=== PATIENT | male | born 1950 | race Caucasian/White ===

== ENCOUNTER → 2022-02-23 | Outpatient (CLI) | payer MEDICARE, OTHER, SELFPAY ==
--- NOTE | 2022-02-23 08:46 | US_ITS ---
PROCEDURES: ULTRASOUND AORTA REASON FOR EXAM: Male, 72 years old. Screening AAA TECHNIQUE: Ultrasound evaluation of the aorta was performed with real-time and static berrios-scale imaging. COMPARISON: None. FINDINGS: There is tortuous elongation of the abdominal aorta. Aorta measures: Proximal 1.9 cm. Middle 1.9 cm. Distal 1.9 cm. Aorta measure transversely: Proximal 2.5 cm. Middle 2.0 cm. Distal 1.8 cm. Right iliac artery measures: 1.3 cm. Right iliac artery measure transversely: 1.5 cm. Left iliac artery measures: 1.2 cm. Left iliac artery measure transversely: 1.4 cm. There is no demonstrated aneurysm.. US/US ABD AORTA SCREEN/AAA IMPRESSION: No evidence of abdominal aortic aneurysm. Electronically Signed: Dawit Mills MD at 12:18 EDT ,
[2022-02-23 12:38] LABS: Absolute Lymphocyte Count 1.85 X10^3/uL (0.83-4.51); Absolute Neutrophil Count 2.7 X10^3/uL (2.0-7.7); Basophil# 0.05 X10^3/uL; Basophil% 0.9 % (0-1); Eosinophil# 0.34 X10^3/uL; Eosinophils% 6.2 % (0-5); Hematocrit 45.8 % (40-54); Hemoglobin 15.4 g/dL (13.0-16.5); Lymphocyte # 1.85 X10^3/ul (0.83-4.51); Lymphocyte % 33.6 % (19-41); Mean Corp Hgb Conc 33.6 g/dL (32-36); Mean Corpuscular Hgb 33.6 pg (27.0-32.0); Mean Platelet Vol. 9.9 fl (6.2-12.0); Monocyte# 0.53 X10^3/uL; Monocyte% 9.6 % (0-10); NRBC Flagged by Analyzer 0 % (0-5); Neutrophil # 2.72 X10^3/uL (2.7-7.7); Neutrophil % 49.3 % (47-70); Platelet Count 295 K/mm3 (150-450); RBC Distribution Width CV 12.8 % (11.6-14.6); RBC Distribution Width SD 47.3 fl (35.1-43.9); Red Blood Count 4.58 M/mm3 (4.6-6.2); White Blood Count 5.5 K/mm3 (4.4-11.0)
[2022-02-23 12:49] LABS: AST(SGOT) 29 U/L (15-37); Alanine Aminotransfer ALT/SGPT 36 U/L (16-61); Albumin, Serum 3.7 g/dL (3.2-5.0); Alkaline Phosphatase 60 U/L (45-117); Anion Gap 7 (5-15); BUN 26 mg/dL (7-18); Calcium,Total 9.1 mg/dL (8.5-10.1); Chloride 108 mmol/L (98-107); Cholesterol 182 mg/dL (200); Creatinine, Serum 1.04 mg/dL (0.70-1.30); EST Glomerular Filtration Rate 75 mL/min (>60); Est Glom Filt Rate - Afr Amer 91 mL/min (>60); Globulin 3.7 g/dL (2.2-4.2); Glucose 105 mg/dL (74-106); High Density Lipoprotein 48 mg/dL; Potassium 4.1 mmol/L (3.5-5.1); Protein, Total 7.4 g/dL (6.4-8.2); Sodium Level 140 mmol/L (136-145); Triglycerides 134 mg/dL; Very Low Density Lipoprotein 27 mg/dL (5-40)
[2022-02-23 12:52] LABS: Vitamin D,25 Hydroxy 65.2 ng/mL
== END | disposition home or self-care (01) ==
PROVIDERS: PCP Internal Medicine; Referring Provider Internal Medicine; Visit Provider Internal Medicine
DX: I10 Essential (primary) hypertension (principal); Z13.6 Encounter for screening for cardiovascular disorders; E55.9 Vitamin D deficiency, unspecified
CPT/HCPCS: 36415; 76706; 80053; 80061; 82306; 85025

== ENCOUNTER → 2023-04-10 | Outpatient (CLI) | payer MEDICARE, OTHER, SELFPAY ==
--- NOTE | 2023-04-10 11:39 | RAD_ITS ---
STUDY: X-RAY - RIGHT HAND REASON FOR EXAM: Male, 73 years old. Hand pain. TECHNIQUE: 3 view(s) of the hand. COMPARISON: None. FINDINGS: Osteopenia. Moderate arthrosis of the radiocarpal articulation. Moderate arthrosis of the distal radioulnar joint. Moderate to marked arthrosis of the radial carpal row of the wrist. Mild arthrosis of the intercarpal articulations. Severe arthrosis of the first CMC joint with multiple small intra-articular osteochondral bodies and slight radial subluxation of the base of the first metacarpal in relation to the trapezium. Moderate to severe arthrosis of the MCP and IP joints most marked at the DIP joint of the first digit, the MCP joints of the second and third digits and PIP joints of the second and third digits. Chondrocalcinosis. Focal ovoid ossification of the soft tissues adjacent to the radial side of the head of the second metacarpal. RAD/Hand Min 3 Views IMPRESSION: Osteopenia with diffuse moderate to marked osteoarthritic changes as described. Focal soft tissue ossification adjacent to the radial side of the head of the second metacarpal. Chondrocalcinosis. Electronically Signed: Theron Barber MD at 9:29 EDT ,
--- NOTE | 2023-04-10 11:40 | RAD_ITS ---
STUDY: X-RAY - LEFT HAND REASON FOR EXAM: Male, 73 years old. Hand pain. TECHNIQUE: 3 view(s) of the hand. COMPARISON: None. FINDINGS: Osteopenia. Moderate arthrosis of the radiocarpal articulation. Moderate arthrosis of the distal radioulnar joint. Moderate to marked arthrosis of the radial carpal row of the wrist. Mild arthrosis of the intercarpal articulations. Severe arthrosis of the first CMC joint with multiple small intra-articular osteochondral bodies and slight radial subluxation of the base of the first metacarpal in relation to the trapezium. Moderate to severe arthrosis of the MCP and IP joints most marked At the MCP joints of the second and third digits and PIP joints of the second and fourth digits. Chondrocalcinosis. RAD/Hand Min 3 Views IMPRESSION: Osteopenia with diffuse moderate to marked osteoarthritic changes as described. Chondrocalcinosis. Electronically Signed: Theron Barber MD at 9:31 EDT ,
[2023-04-10 12:24] LABS: Absolute Lymphocyte Count 1.83 X10^3/uL (0.83-4.51); Absolute Neutrophil Count 3.9 X10^3/uL (2.0-7.7); Basophil# 0.07 X10^3/uL; Basophil% 1.1 % (0-1); Eosinophil# 0.27 X10^3/uL; Eosinophils% 4.1 % (0-5); Hematocrit 47.2 % (40-54); Lymphocyte # 1.83 X10^3/ul (0.83-4.51); Lymphocyte % 27.5 % (19-41); Mean Corp Hgb Conc 33.9 g/dL (32-36); Mean Corpuscular Hgb 34.4 pg (27.0-32.0); Mean Corpuscular Volume 101.5 fL (80-94); Mean Platelet Vol. 9.9 fl (6.2-12.0); Monocyte# 0.58 X10^3/uL; Monocyte% 8.7 % (0-10); NRBC Flagged by Analyzer 0 % (0-5); Neutrophil % 58.4 % (47-70); Platelet Count 284 K/mm3 (150-450); RBC Distribution Width CV 12.8 % (11.6-14.6); Red Blood Count 4.65 M/mm3 (4.6-6.2); White Blood Count 6.7 K/mm3 (4.4-11.0)
[2023-04-10 12:57] LABS: Vitamin B12 603 pg/mL (211-911)
[2023-04-10 13:03] LABS: AST(SGOT) 24 U/L (15-37); Alanine Aminotransfer ALT/SGPT 39 U/L (16-61); Albumin, Serum 3.8 g/dL (3.2-5.0); Alkaline Phosphatase 57 U/L (45-117); Anion Gap 5 (5-15); BUN 25 mg/dL (7-18); BUN/Creat Ratio 24.3 RATIO (10-20); Calcium,Total 9.2 mg/dL (8.5-10.1); Chloride 108 mmol/L (98-107); Cholesterol 190 mg/dL (200); Creatinine, Serum 1.03 mg/dL (0.70-1.30); EST Glomerular Filtration Rate 75 mL/min (>60); Est Glom Filt Rate - Afr Amer 91 mL/min (>60); Globulin 3.8 g/dL (2.2-4.2); Glucose 114 mg/dL (74-106); High Density Lipoprotein 53 mg/dL; Potassium 4.6 mmol/L (3.5-5.1); Protein, Total 7.6 g/dL (6.4-8.2); Sodium Level 140 mmol/L (136-145); Triglycerides 160 mg/dL; Very Low Density Lipoprotein 32 mg/dL (5-40)
== END | disposition home or self-care (01) ==
PROVIDERS: PCP Internal Medicine; Referring Provider Internal Medicine; Visit Provider Internal Medicine
DX: M79.641 Pain in right hand (principal); M79.642 Pain in left hand; I10 Essential (primary) hypertension; R20.0 Anesthesia of skin
CPT/HCPCS: 36415; 73130; 80053; 80061; 82607; 85025

== ENCOUNTER → 2023-04-12 | Outpatient (CLI) | payer MEDICARE, OTHER, SELFPAY | END | disposition home or self-care (01) | LOC: BIMLAB 11:27 | PROVIDERS: PCP Internal Medicine; Referring Provider Internal Medicine; Visit Provider Internal Medicine | DX: D75.89 Other specified diseases of blood and blood-forming organs (principal) | CPT/HCPCS: 36415; 82746 ==

== ENCOUNTER → 2023-06-04 | Outpatient (CLI) | payer MEDICARE, OTHER, SELFPAY ==
--- NOTE | 2023-06-04 14:28 | NEURO ---
NCS and/or EMG Patient Report Ordering Doctor: José Manuel Garcia DATE OF SERVICE: 06/04/23 Clinical Summary: 73 year old male patient presenting with complaints of numbness/tingling in both hands. This EMG/NCS was performed to evaluate for right and left carpal tunnel syndrome. Nerve Conduction Studies Summary: The median-D2 SNAP was absent bilaterally. The ulnar-D5 SNAP distal latency was prolonged bilaterally with reduced amplitudes. The median-APB CMAP distal latency was prolonged bilaterally with reduced amplitudes. The median motor conduction velocity was reduced bilaterally in the forearm segments. Needle Examination Summary: Needle examination demonstrated increased insertional activity and spontaneous activity (positive sharp waves and fibrillation potentials) in the abductor pollicis brevis muscles bilaterally. There was a higher proportion of motor unit action potentials with reduced recruitment, increased amplitude, increased duration, and polyphasia in the bilateral biceps, bilateral triceps, bilateral flexor carpi radialis, bilateral flexor carpi ulnaris, right extensor indicis proprius, right first dorsal interosseous, and left abductor pollicis brevis. There was a higher proportion of motor unit action potentials with reduced recruitment, decreased amplitude, increased duration, and polyphasia in the right abductor pollicis brevis muscle. 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
== END | disposition home or self-care (01) ==
LOC: PSN 13:28
PROVIDERS: PCP Internal Medicine; Referring Provider Internal Medicine; Visit Provider Internal Medicine
DX: R20.0 Anesthesia of skin (principal)
CPT/HCPCS: 95886; 95912

== ENCOUNTER → 2023-07-01 | Outpatient (CLI) | payer MEDICARE, OTHER, SELFPAY ==
--- NOTE | 2023-07-01 16:15 | MRI_ITS ---
We are attempting to reach an attending provider to discuss findings. An addendum with communication details will be sent when the communication is complete. INDICATION: radiculopathy, abnormal EMG EXAMINATION: MRI - MR Spine Cervical W/O Contrast TECHNIQUE: Multiplanar and multisequence MR images of the cervical spine were performed. IV Contrast Dosage and Agent: None. COMPARISON: None. FINDINGS: VERTEBRAE: Normal vertebral bodies and posterior elements. VERTEBRAL ALIGNMENT: Normal, including the craniocervical junction and cervicothoracic junction. No spondylolisthesis. There is reversal of the normal cervical lordosis. CERVICAL SPINAL CORD: Moderate cord compression and signal abnormality suggesting myelomalacia on the left side of the spinal cord. C2/C3: Congenitally short pedicles, degenerative changes in the disc. Normal spinal canal and neuroforamina. C3/C4: Congenitally short pedicles, degenerative changes in the disc with moderate broad-based disc herniation resulting in moderate narrowing of the spine canal. Mild narrowing of the bilateral neuroforamina due to degenerative changes in the adjacent facet joints and uncovertebral joints. C4/C5: Congenitally short pedicles, degenerative changes in the disc with large central and left paracentral broad-based disc herniation resulting in severe narrowing of the spine canal with impingement on spinal cord and signal abnormality suggesting myelomalacia on the left side of the spinal cord. Mild left and severe right narrowing of the bilateral neuroforamina due to degenerative changes in the adjacent facet joints and uncovertebral joints. C5/C6, C6/C7: Congenitally short pedicles. Central and paracentral disc bulge. Degenerative changes of the bilateral facet joints and uncovertebral joints. Moderate to severe narrowing of the central canal and the bilateral intervertebral neural foramina. C7/T1: Endplate spondylosis. Central and paracentral disc bulge. Degenerative changes of the bilateral facet joints. Mild narrowing of the central canal and the bilateral intervertebral neural foramina. NECK SOFT TISSUES: No prevertebral soft tissue swelling. There is no cervical adenopathy. MRI/Spine Cervical (Routine) IMPRESSION: Multilevel degenerative changes with spinal canal and neural foraminal narrowing most severe at C4-5. Myelomalacia at C4-5. Electronically Signed: Saúl Singh MD at 8:14 EST ,
== END | disposition home or self-care (01) ==
LOC: MRI 15:42
PROVIDERS: PCP Internal Medicine; Referring Provider Internal Medicine; Visit Provider Internal Medicine
DX: M47.9 Spondylosis, unspecified (principal); G95.89 Other specified diseases of spinal cord
CPT/HCPCS: 72141

== ENCOUNTER → 2023-07-16 | Outpatient (CLI) | payer MEDICARE, OTHER, SELFPAY ==
--- NOTE | 2023-07-16 17:43 | CT_ITS ---
EXAM: CT CERVICAL SPINE WITH INTRAVENOUS CONTRAST CLINICAL INDICATION: Cervical radiculopathy. TECHNIQUE: Helically acquired images were obtained of the cervical spine with intravenous contrast. 2D reformatted images were reviewed. This CT exam was performed using one or more of the following dose reduction techniques: automated exposure control, adjustment of the mA and/or kV according to patient size, and/or use of iterative reconstruction technique. CONTRAST: IV 100mL Isovue-300 RADIATION DOSE: CTDIvol = 26.13 mGy, DLP = 619.27 mGy-cm COMPARISON: MRI cervical spine without contrast 07/01/2023. FINDINGS: VERTEBRAE: Mild cervical kyphosis. Normal vertebral body heights. Normal alignment. DISCS/SPINAL CANAL/NEURAL FORAMINA: Moderately pronounced central canal stenosis at C5-C6 disc space level due to partially calcified posterior bulging annulus. Normal C5-C6 intervertebral neural foramina. Pronounced central canal stenosis at C4-C5 disc space level due to hypertrophic bone spur causing spinal cord compression. Normal left C4-C5 intervertebral neural foramen. Mild stenosis of right C4-C5 intervertebral neural foramen. Mild central canal stenosis at C6-C7 disc space level due to calcified posterior bulging annulus. Normal C6-C7 intervertebral neural foramina. SOFT TISSUES: Unremarkable. No prevertebral soft tissue swelling. LYMPH NODES: Unremarkable. No cervical adenopathy. LUNG APICES: Unremarkable as visualized. Clear. OTHER FINDINGS: Following IV contrast administration, there are no abnormal enhancing lesions intradurally and extradurally. CT/Spine Cervical WITH Contrast IMPRESSION: 1. Pronounced central canal stenosis at C4-C5 disc space level due to hypertrophic bone spur causing spinal cord compression and mild stenosis of the right C4-C5 intervertebral neural foramen. 2. Moderately pronounced central canal stenosis at C5-C6 disc space level due to partially calcified posterior bulging annulus. 3. No CT evidence of suspicious cervical extruded disc fragment. 4. No abnormal enhancing lesions intradurally and extradurally. 5. No significant interval change when compared to MRI cervical spine of 07/01/2023. Electronically Signed: Silverio Kimble MD at 14:26 EST Reading Location ID and State: [address] [place] [address] , Service support ,
[2023-07-16 18:09] LABS: CREATININE FINGERSTICK 1.3 mg/dL (0.70-1.30)
== END | disposition home or self-care (01) ==
LOC: CT 17:40
PROVIDERS: PCP Internal Medicine; Visit Provider Orthopaedic Surgery
DX: M50.221 Other cervical disc displacement at C4-C5 level (principal); G95.89 Other specified diseases of spinal cord; M54.12 Radiculopathy, cervical region
CPT/HCPCS: 72126; Q9967

== ENCOUNTER → 2024-03-04 | Outpatient (CLI) | payer MEDICARE, OTHER, SELFPAY ==
--- NOTE | 2024-03-04 13:11 | SP.MBSS_ITS ---
Modified Barium Swallow Patient Information Study Date: 03/04/24 Study Time: 13:00 Direct Billable Minutes: 103 Total Minutes procedure & reportin Diagnosis: Dysphagia R13.10 Referring Physician: Michelle Bran Reason for Referral: Objectively assess swallow function, assess risk for aspiration, and determine recommendations for least restrictive diet textures and compensatory strategies to improve safety of swallow. Medical History: PMH: Cubital tunnel syndrome, bilateral; Bilateral carpal tunnel syndrome; C ervical radiculopathy; Hx of fracture of arm; History of kidney stones; Hx of primary hypertension; Hx of fracture; History of back pain; Cervical fusion C3- C7 (September 2023); GERD symptoms recently started on Protonix. The patient is a 74-year-old male with PMH above who reports swallowing difficulty for the past 1-2 years characterized by coughing with food, especially dry textures, or drinks 3-4X/week. Patient reports recently starting on Protonix for heartburn, and he feels it has somewhat improved his swallow, as well. Of note, he said his family members feel that he coughs frequently with food and drink. He admits to quick rate of eating and drinking, which worsens his swallowing difficulties. He reports his swallow worsened the first 1-2 weeks after his recent cervical fusion and he felt as if foods were becoming caught in his throat, but this sensation has fully resolved. His PCP referred him for MBSS to objectively assess swallow function and aspiration risk. Current Diet Ordered: Regular textures / Thin liquids Dentition: WNL Mental Status: WNL Respiratory Status: Oxygenating on Room Air Penetration-Aspiration Scale Penetration-Aspiration Scale: OBJECTIVE ASSESSMENT OF SWALLOW FUNCTION (QUANTITATIVE ? PER TRIAL): PENETRATION / ASPIRATION SCALE (CASON): 1 = does not enter airway 2 = enters airway/above vocal folds/ejected 3 = enters airway/above vocal folds/not ejected 4 = enters airway/contacts vocal folds/ejected 5 = enters airway/contacts vocal folds/not ejected 6 = enters airway/below vocal folds/ejected 7 = enters airway/below vocal folds/not ejected despite effort 8 = enters airway/below vocal folds/no effort VIDEOFLOROSCOPIC SCALE SCORE (CASON): Grade I = aspiration of material that has penetrated into the laryngeal vestibule, intact cough reflex Grade II = aspiration < 10 % of the bolus, intact cough reflex Grade III = aspiration of < 10 % of the bolus, reduced cough reflex or aspiration of > 10 % of the bolus, intact cough reflex Grade IV = aspiration of > 10 % of the bolus, reduced cough reflex Penetration-Aspiration Scale Score Thin Liquid via teaspoon: Result: 1= does not enter airway Thin Liquid via teaspoon Trial 2: Result: 1= does not enter airway Thin Liquid via large single sip: cup: Result: 2= enter airway/above vocal folds/ejected [place] Thick Liquid via large single sip: cup: Result: 2= enter airway/above vocal folds/ejected Pudding via teaspoon: Result: 1= does not enter airway Comment: Esophageal screen - Retention of pudding in the mid and lower esophagus, which somewhat cleared with liquid wash during esophageal screen of following trial. Thin Liquid via single sip: straw: Result: 2= enter airway/above vocal folds/ejected 1/2 Cookie: Result: 1= does not enter airway Comment: Esophageal screen - Retention of 1/2 cookie throughout the esophagus, which mostly cleared with liquid wash during esophageal screen of following trial. Thin Liquid via sequential sips:straw: Result: 5= enters airways/contacts vocal folds/not ejected Comment: No reflexive cough. DIGITAL CARTOGRAPHIC TECHNICIAN cued cough and re-swallow. Thin Liquid via large single sip: cup Effortful swallow: Result: 2= enter airway/above vocal folds/ejected Oral Phase Labial Seal: Interlabial escape, no progression to anterior lip (1st trial d/t DIGITAL CARTOGRAPHIC TECHNICIAN spilling barium from tsp) Tongue Control During Bolus Hold: Posterior escape of less than half of bolus Bolus Preparation/Mastication: Timely and efficient chewing and mashing Bolus Transport/Lingual Motion: Delayed initiation of tongue motion Oral Residue: Residue collection on oral structures Pharyngeal Phase Initiation of Pharyngeal Swallow: Bolus head in pyriforms Soft Palate Elevation: Trace column of contrast/air between soft palate and pharyngeal wall Laryngeal Elevation: Partial superior movement thyroid cart/partial apprx aryt- epig petiole Anterior Hyoid Excursion: Partial anterior movement (inconsistent, most the time complete anterior movement but at times partial) Epiglottic Movement: Complete inversion Laryngeal Vestibule Closure at Height of Swallow: Incomplete; narrow column of air/contrast in laryngeal vestibule Pharyngeal Stripping Wave: Present - complete Pharyngoesophageal Segment Opening: Parital distension and partial duration; parital obstruction of flow Tongue Base Retraction: Narrow column of contrast between tongue base & post. pharyngeal wall Pharyngeal Residue: Trace residue within or on pharyngeal structures Esophageal Phase Esophageal Clearance: Esophageal retention Treatment Strategies Effects of treatment strategies attemped:: Liquid wash = Somewhat effective in clearing esophageal retention. Cough and re-swallow = Somewhat effective in clearing residues of penetrated barium contrast from laryngeal vestibule. Effortful swallow = Effective. Diagnosis/Impression Diagnosis: Mild pharyngoesophageal dysphagia R13.14 Impression: The oral phase is grossly WNL; however, he does have posterior loss of large liquid boluses to the pyriforms prior to swallow onset, as well as piecemeal deglutition of large sips. This is likely due to size of sips and not swallow dysfunction of the oral or oral transit phases. Mastication was timely and complete. The pharyngeal phase is primarily marked by... -Trace-mild pharyngeal residues due to mildly decreased tongue base retraction and UES opening/duration. -Mildly decreased airway closure with deep laryngeal penetration of sequential sips of thin liquids to the vocal folds without reflexive cough and without full ejection. DIGITAL CARTOGRAPHIC TECHNICIAN cued cough and re-swallow, which was somewhat effective. Effortful swallow and decreased rate are most effective in decreasing risk for laryngeal penetration/aspiration. The esophageal phase is primarily marked by... -Retention of pudding in the mid and lower esophagus, which somewhat cleared with liquid wash. -Retention of 1/2 cookie throughout the esophagus, which mostly cleared with liquid wash. Recommendations Diet: Regular Textures and Thin Liquids Comment: Intermittent cough and re-swallow Compensatory Strategies: Small Bites, Small Sips (effortful/hard swallows), Slow Rate, Alternate bites/solids and sips/liquids (1:1 ratio), Sitting upright and Remain sitting upright for 30 minutes after PO intake Recommend Repeat Modified Barium Swallow: TBD Need for Skilled Speech Therapy Services: Yes Comment: -Train the patient in use of strategies to decrease risk for aspiration and reflux aspiration. -Ongoing assessment of diet tolerance of recommended textures. -Train the patient in oropharyngeal exercise program to improve airway closure, tongue base retraction, and UES opening/duration (Rafy, Sally, CTAR, Yawn/jaw opening stretch). Recommended Referrals: GI Consult (Consider GI consult d/t GERD symptoms and esophageal retention during MBSS) Education Completed: 1. Described result of evaluation. and 2. Pt understands evaluation & agrees with goals and treatment plan. Status Active ST Patient: Active Contact Information [facility]:: Trinidad Mandel M.A. CCC-DIGITAL CARTOGRAPHIC TECHNICIAN? Speech-Language Pathologist?? [facility] [address] [place] [address]? [email or web address]?? [phone]
== END | disposition home or self-care (01) ==
LOC: RAD 12:57
PROVIDERS: PCP Internal Medicine; Referring Provider Internal Medicine; Visit Provider Internal Medicine
DX: R13.10 Dysphagia, unspecified (principal)
CPT/HCPCS: 74230; 92611

== ENCOUNTER → 2024-07-09 | Outpatient (CLI) | payer MEDICARE, OTHER, SELFPAY ==
[2024-07-09 15:38] LABS: Absolute Lymphocyte Count 1.95 X10^3/uL (0.83-4.51); Absolute Neutrophil Count 3.9 X10^3/uL (2.0-7.7); Basophil# 0.06 X10^3/uL; Basophil% 0.9 % (0-1); Eosinophil# 0.21 X10^3/uL; Eosinophils% 3.2 % (0-5); Hematocrit 46.9 % (40-54); Hemoglobin 15.8 g/dL (13.0-16.5); Lymphocyte # 1.95 X10^3/ul (0.83-4.51); Lymphocyte % 29.5 % (19-41); Mean Corp Hgb Conc 33.7 g/dL (32-36); Mean Corpuscular Hgb 33.8 pg (27.0-32.0); Mean Corpuscular Volume 100.4 fL (80-94); Mean Platelet Vol. 9.4 fl (6.2-12.0); Monocyte# 0.51 X10^3/uL; Monocyte% 7.7 % (0-10); NRBC Flagged by Analyzer 0 % (0-5); Neutrophil # 3.87 X10^3/uL (2.7-7.7); Neutrophil % 58.4 % (47-70); Platelet Count 355 K/mm3 (150-450); RBC Distribution Width CV 12.8 % (11.6-14.6); RBC Distribution Width SD 47.2 fl (35.1-43.9); Red Blood Count 4.67 M/mm3 (4.6-6.2); White Blood Count 6.6 K/mm3 (4.4-11.0)
[2024-07-09 16:17] LABS: ALB/GLOB Ratio 1.1 RATIO (0.9-2.4); AST(SGOT) 26 U/L (15-37); Alanine Aminotransfer ALT/SGPT 33 U/L (16-61); Albumin, Serum 4.1 g/dL (3.2-5.0); Alkaline Phosphatase 70 U/L (45-117); Anion Gap 5 (5-15); BUN 21 mg/dL (7-18); BUN/Creat Ratio 22.4 RATIO (10-20); Calcium,Total 9.3 mg/dL (8.5-10.1); Chloride 108 mmol/L (98-107); Cholesterol 194 mg/dL (200); Creatinine, Serum 0.94 mg/dL (0.70-1.30); EST Glomerular Filtration Rate 84 mL/min (>60); Est Glom Filt Rate - Afr Amer 101 mL/min (>60); Globulin 3.6 g/dL (2.2-4.2); Glucose 108 mg/dL (74-106); High Density Lipoprotein 55 mg/dL; Potassium 4.7 mmol/L (3.5-5.1); Protein, Total 7.7 g/dL (6.4-8.2); Sodium Level 142 mmol/L (136-145); Triglycerides 116 mg/dL; Very Low Density Lipoprotein 23 mg/dL (5-40)
== END | disposition home or self-care (01) ==
LOC: BIMLAB 11:39
PROVIDERS: PCP Internal Medicine; Referring Provider Internal Medicine; Visit Provider Internal Medicine
DX: K21.9 Gastro-esophageal reflux disease without esophagitis (principal); Z13.6 Encounter for screening for cardiovascular disorders
CPT/HCPCS: 36415; 80053; 80061; 85025

== ENCOUNTER → 2025-06-23 | Outpatient (CLI) | payer MEDICARE, OTHER, SELFPAY ==
--- NOTE | 2025-06-23 15:16 | MRI_ITS ---
PROCEDURE: SPINE LUMBAR (ROUTINE) 06/23/2025 REASON FOR EXAM: LUMBAR RADICULOPATHY TECHNIQUE: Procedure Code: MRISPL Modality: MR Procedure: SPINE LUMBAR (ROUTINE) FINDINGS: Normal lumbar alignment and vertebral body height. Posterior lumbar pedicle screw fusion between L3 and S1. Chronic appearing compressive deformity at L2. Increased signal on inversion recovery images has the appearance of Modic type 1 change rather than fracture related edema. Normal conus without compression. Minor annular bulging at T11-12. T12-L1 is unremarkable. At L1-2, broad-based concentric disc bulge produces [id number] spinal stenosis with inferior foraminal narrowing that is more prominent on the left than the right. At L2-3 there is moderate circumferential spinal canal narrowing from facet degeneration, ligamentous hypertrophy and broad-based disc bulging. Moderate foraminal narrowing also present at this level. At L3-4, posterior decompression and fusion without recurrent pathology. At L4-5, prior posterior decompression and fusion without recurrent pathology. At L5-S1, prior decompression and fusion without recurrent pathology. MRI/Spine Lumbar (Routine) IMPRESSION: [id number] spinal stenosis at L1-2 with moderate canal narrowing at L2-3. Bilateral foraminal narrowing at both levels. Postsurgical changes without recurrent pathology at the surgical levels. Chronic appearing compression deformity of L2 with probable Modic 1 changes Reading [facility]
--- NOTE | 2025-06-23 15:16 | MRI_ITS ---
PROCEDURE: SPINE CERVICAL (ROUTINE) 06/23/2025 REASON FOR EXAM: CERVICAL RADICULOPATHY TECHNIQUE: Procedure Code: MRISPC Modality: MR Procedure: SPINE CERVICAL (ROUTINE) Multiplanar and multisequence images were obtained without IV contrast administration. FINDINGS: Prior ACDF extends from C3-C7. No Chiari deformity. No compression deformity. Negative for subluxation. C2-3 demonstrates central annular bulging with mild canal narrowing. At C3-4 dorsal osteophytic spur also results in mild canal narrowing, abutting the ventral cord. At C4-5, residual osteophytic spurring results in mild canal narrowing and there is chronic myelomalacia in the left side of the cord. Asymmetric severe right C5 foraminal narrowing is present. At C5-6, residual mild foraminal narrowing on the right and mild central canal narrowing. At C6-7 disc osteophyte complex results in mild stenosis with mild left C7 foraminal narrowing. C7-T1 exhibits no central stenosis. Mild bilateral foraminal narrowing more prominent on the left than the right MRI/Spine Cervical (Routine) IMPRESSION: 1. Extensive prior cervical fusion. 2. Chronic myelomalacia in the cord at C4-5. 3. Multilevel foraminal stenosis. 4. No cord compression. Multilevel mild canal narrowing Reading Location: [facility]
--- NOTE | 2025-06-23 15:16 | MRI_ITS ---
PROCEDURE: SPINE CERVICAL (ROUTINE) 06/23/2025 REASON FOR EXAM: CERVICAL RADICULOPATHY TECHNIQUE: Procedure Code: MRISPC Modality: MR Procedure: SPINE CERVICAL (ROUTINE) Multiplanar and multisequence images were obtained without IV contrast administration. FINDINGS: Prior ACDF extends from C3-C7. No Chiari deformity. No compression deformity. Negative for subluxation. C2-3 demonstrates central annular bulging with mild canal narrowing. At C3-4 dorsal osteophytic spur also results in mild canal narrowing, abutting the ventral cord. At C4-5, residual osteophytic spurring results in mild canal narrowing and there is chronic myelomalacia in the left side of the cord. Asymmetric severe right C5 foraminal narrowing is present. At C5-6, residual mild foraminal narrowing on the right and mild central canal narrowing. At C6-7 disc osteophyte complex results in mild stenosis with mild left C7 foraminal narrowing. C7-T1 exhibits no central stenosis. Mild bilateral foraminal narrowing more prominent on the left than the right MRI/Spine Cervical (Routine) IMPRESSION: 1. Extensive prior cervical fusion. 2. Chronic myelomalacia in the cord at C4-5. 3. Multilevel foraminal stenosis. 4. No cord compression. Multilevel mild canal narrowing Reading Location: [facility]
--- NOTE | 2025-06-23 15:16 | MRI_ITS ---
PROCEDURE: SPINE LUMBAR (ROUTINE) 06/23/2025 REASON FOR EXAM: LUMBAR RADICULOPATHY TECHNIQUE: Procedure Code: MRISPL Modality: MR Procedure: SPINE LUMBAR (ROUTINE) FINDINGS: Normal lumbar alignment and vertebral body height. Posterior lumbar pedicle screw fusion between L3 and S1. Chronic appearing compressive deformity at L2. Increased signal on inversion recovery images has the appearance of Modic type 1 change rather than fracture related edema. Normal conus without compression. Minor annular bulging at T11-12. T12-L1 is unremarkable. At L1-2, broad-based concentric disc bulge produces [id number] spinal stenosis with inferior foraminal narrowing that is more prominent on the left than the right. At L2-3 there is moderate circumferential spinal canal narrowing from facet degeneration, ligamentous hypertrophy and broad-based disc bulging. Moderate foraminal narrowing also present at this level. At L3-4, posterior decompression and fusion without recurrent pathology. At L4-5, prior posterior decompression and fusion without recurrent pathology. At L5-S1, prior decompression and fusion without recurrent pathology. MRI/Spine Lumbar (Routine) IMPRESSION: [id number] spinal stenosis at L1-2 with moderate canal narrowing at L2-3. Bilateral foraminal narrowing at both levels. Postsurgical changes without recurrent pathology at the surgical levels. Chronic appearing compression deformity of L2 with probable Modic 1 changes Reading Location: [facility]
== END | disposition home or self-care (01) ==
LOC: MRI 15:09
PROVIDERS: PCP Internal Medicine; Referring Provider Internal Medicine; Visit Provider Internal Medicine
DX: M54.16 Radiculopathy, lumbar region (principal); R29.898 Other symptoms and signs involving the musculoskeletal system; M54.12 Radiculopathy, cervical region
CPT/HCPCS: 72141; 72148

== ENCOUNTER → 2025-06-24 | Outpatient (CLI) | payer MEDICARE, OTHER, SELFPAY ==
[2025-06-24 12:34] LABS: Hematocrit 45.0 % (40-54); Hemoglobin 15.7 g/dL (13.0-16.5); Immature Granulocytes Count 0.010 X10^3/uL (0.0-0.0); Mean Corp Hgb Conc 34.9 g/dL (32-36); Mean Corpuscular Volume 97.4 fL (80-94); Mean Platelet Vol. 9.3 fl (6.2-12.0); NRBC Flagged by Analyzer 0 % (0-5); Platelet Count 278 K/mm3 (150-450); RBC Distribution Width CV 12.6 % (11.6-14.6); RBC Distribution Width SD 45.0 fl (35.1-43.9); Red Blood Count 4.62 M/mm3 (4.6-6.2); White Blood Count 6.6 K/mm3 (4.4-11.0)
[2025-06-24 13:14] LABS: AST(SGOT) 23 U/L (<=37); Alanine Aminotransfer ALT/SGPT 25 U/L (<=46); Albumin, Serum 4.3 g/dL (3.4-4.8); Alkaline Phosphatase 58 U/L (40-129); Anion Gap 9 (5-15); BUN 22 mg/dL (4-19); BUN/Creat Ratio 25.2 RATIO (10-20); Calcium,Total 9.7 mg/dL (7.6-11.0); Carbon Dioxide 27.4 mmol/L (21.0-32.0); Chloride 104 mmol/L (98-108); Cholesterol 182 mg/dL (<=200); Globulin 3.1 g/dL (2.2-4.2); Glucose 118 mg/dL (70-99); Low Density Lipoprotein Calc. 111 mg/dL; Potassium 4.6 mmol/L (3.3-5.1); Triglycerides 132 mg/dL; Very Low Density Lipoprotein 26 mg/dL (5-40); cholesterol:hdl ratio screen 3.81
== END | disposition home or self-care (01) ==
LOC: LAB 11:41
PROVIDERS: PCP Internal Medicine; Referring Provider Internal Medicine; Visit Provider Internal Medicine
DX: I10 Essential (primary) hypertension (principal); R73.09 Other abnormal glucose
CPT/HCPCS: 36415; 80053; 80061; 83036; 85025

== ENCOUNTER → 2025-07-20 | Outpatient (CLI) | payer MEDICARE, OTHER, SELFPAY ==
--- NOTE | 2025-07-20 14:06 | NEURO ---
NCS and/or EMG Patient Report Ordering Doctor: José Manuel Garcia DATE OF SERVICE: 07/20/25 Clinical Summary: 75 year old male patient with symptoms of pain in both hands/wrists. History of cervical spine surgery. Nerve Conduction Studies Summary: Nerve conduction studies were performed in the bilateral upper extremities. The median-D2 SNAP's were absent bilaterally. The right median-santos SNAP was absent. The right ulnar-D5 SNAP distal latency was prolonged. The left ulnar-D5 SNAP amplitude was reduced. The median-APB CMAP distal latency was prolonged bilaterally with reduced amplitudes. The left median motor conduction velocity was reduced in the forearm segment. The ulnar-ADM CMAP distal latency was prolonged bilaterally. Needle Examination Summary: Needle examination of select muscles of the bilateral upper extremities demonstrated increased insertional activity and spontaneous activity (positive sharp waves and fibrillation potentials) in the abductor pollicis muscles bilaterally. There was a higher proportion of motor unit action potentials with reduced recruitment, increased amplitude, increased duration, and polyphasia in the bilateral triceps, bilateral flexor carpi radialis, bilateral flexor carpi ulnaris, bilateral extensor indicis proprius, and bilateral flexor digitorum interosseous muscles. Impression: This is an abnormal study. 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
--- OUTSIDE RECORDS SUMMARY | 2025-07-20 14:38 | XMS RPT_ITS | CCD ---
Author Organization [facility] Care Team Providers Care Marketing Content Manager Name Role Phone Dr. Hyacinth Bran Attending Provider [phone] Dr. Hyacinth Bran Primary Care Provider Dr. Hyacinth Bran Attending Provider [phone] Dr. Hyacinth Bran Referring Provider [phone] Dr. José Manuel Garcia Referring Provider [phone] Dr. José Manuel Garcia Other Provider [phone] Dr. Valentine Caceres Attending Provider [phone] Dr. Hyacinth Bran Primary Care Provider Dr. Hyacinth Bran Attending Provider [phone] Dr. Hyacinth Bran Referring Provider [phone] Dr. José Manuel Garcia Referring Provider [phone] Dr. José Manuel Garcia Other Provider [phone] Dr. Valentine Caceres Attending Provider MD Alon Rivers Attending Provider [phone] Dr. Blu Sebastian Attending Provider [phone] Dr. Ramez Delaney Attending Provider [phone] YINA DEY, HYACINTH Escobedo Primary Care Physician [phone] Blend, Ramona Unavailable Unavailable Elli Jennifer Unavailable Unavailable [place] Rounding Nurse, Jhon Unavailable HYACINTH Velazco MD Primary Care Unavailable THO BAE MD Attending Unavailable THO BAE MD Attending Unavailable HYACINTH BRAN MD Primary Care Unavailable CATALINO DEY, THO Jean Admitting Unavailable YINA DEY, HYACINTH G Primary Care Unavailable PIYUSH DEY FACP, KATHLEEN Barcenas Consulting Unavail able CATALINO DEY, THO Jean Attending Unavailable JENNIFER RIVERA MD Consulting Unavailable Yina DEY, Dr. Martinez Primary Care Physician Yina DEY, Dr. Martinez Attending Physician Yina DEY, Dr. Martinez Referring Provider [place], Hyacinth Primary Care Unavailable [place], Hyacinth Attending Unavailable Yina, Hyacinth Referring Unavailable [place], Hyacinth Primary Care Unavailable Yina, Hyacinth Attending Unavailable [place], Hyacinth Referring Unavailable Yina, Hyacinth Primary Care Unavailable Yina, Hyacinth Attending Unavailable [place], Hyacinth Referring Unavailable Yina, Hyacinth Primary Care Unavailable Yina, Hyacinth Attending Unavailable Yina, Hyacinth Referring Unavailable [place], Hyacinth Referring Unavailable Yina, Hyacinth Attending Unavailable Yina, Hyacinth Primary Care Unavailable Rhett, [place] Attending Unavailable [place], Hyacinth Primary Care Unavailable Yina, Hyacinth Attending Unavailable Yina, Hyacinth Primary Care Unavailable Yina, Hyacinth Referring Unavailable [place], Hyacinth Attending Unavailable Yina, Hyacinth Primary Care Unavailable [place], Hyacinth Referring Unavailable Yina, Hyacinth Attending Unavailable [place], Hyacinth Primary Care Unavailable Medications Current Medications Medication Drug Class(es) Dates Sig (Normalized) Sig (Original) acetaminophen 500 mg oral tablet (2 sources) Start: 08-27-2014 Tylenol 500 mg oral tablet Dose : 1,000 mg = 2 tab(s), Oral, q4h, PRN for pain, 0 Refill(s) Start Date: 08/27/14 Status: Ordered acetaminophen 325 mg / oxyCODONE hydrochloride 5 mg oral tablet (1 source) Opioid Agonist Start: 10-25-2023 End: 11-01-2023 take 1 tablet by mouth every six hours as needed for pain Percocet 5 mg-325 mg oral tablet Dose = 1 tab(s), Oral, q6hr, PRN as needed for pain, # 40 tab(s), 0 Refill(s), 115.7 Start Date: 10/25/23 Stop Date: 11/01/23 Status: Ordered aspirin 81 mg delayed release oral tablet (9 sources) Platelet Aggregation Inhibitor, Nonsteroidal Anti-inflammatory Drug Start: 02-15-2022 aspirin 81 mg oral delayed release tablet Dose : 81 mg = 1 tab(s), Oral, qAM, per patient last dose is 10/14/2023, 0 Refill(s) Start Date: 10/08/23 Status: Ordered Centrum Silver Men's oral tablet (2 sources) Start: 08-27-2014 take 1 tablet by mouth once daily Centrum Silver Men's oral tablet Dose = 1 tab(s), Oral, qDay, 0 Refill(s) Start Date: 08/27/14 Status: Ordered cetirizine hydrochloride 10 mg oral tablet (1 source) Histamine-1 Receptor Antagonist Start: 11-04-2024 take 1 tablet by mouth once daily cholecalciferol 0.125 mg oral tablet (7 sources) Vitamin D Start: 02-15-2022 take 1 tablet by mouth once daily fluticasone propionate 0.05 mg/actuat metered dose nasal spray (1 source) Corticosteroid Start: 11-04-2024 take 50 ug nasal route once daily handicap placard (6 sources) Start: 10-16-2022 handicap placard Active 0 .ROUTE .MEDSUPPLY 1 October 16, 2022 1:00am Impaired physical mobility Other reduced mobility Length of time: 5 years Start: 10-16-[address] Active 0 .ROUTE .MEDSUPPLY October 16, 2022 12:00am Length of time: 5 years Start: 10-16-[address] Active 0 .ROUTE .MEDSUPPLY October 16, 2022 1:00am Length of time: 5 years losartan potassium 100 mg oral tablet (4 sources) Angiotensin 2 Receptor Elza Start: 06-07-2025 take 1 tablet by mouth once daily Start: 12-10-2024 End: 06-07-2025 take 1 tablet by mouth once daily Losartan 50 mg tablet Discontinued 50 mg PO daily 24 09March 29, 2025 4:31pm June 07, 2025 11:04am Zayvwuss-Aor-Zayjp-Vit K-Lyc op (One-A-Day Men's Multivitamin) 400-20-300 mcg tablet (7 sources) Start: 02-15-2022 Start: 02-15-2022 take 1 tablet by arlene th once Jaiwuwem-Ofe-Rbcam-Vit K-Lycop (One-A-Da y Men's Multivitamin) 400-20-300 mcg tablet Active TABLET PO February 14, 2022 11:00pm Start: 02-15-2022 take 1 tablet by arlene th once Vluoxlqi-Iqx-Jveqq-Vit K-Lycop (One-A- y Men's Multivitamin) 400-20-300 mcg tablet Active TABLET PO February 15, 2022 12:00am mupirocin 0.02 mg/mg topical ointment (1 source) RNA Synthetase Inhibitor Antibacterial Start: 10-08-2023 mupirocin 2% topical ointment Apply 1 gela, Topical, BID, Bilateral intranasal application twice daily x 5 days pre-surgery &/or as many days pre-surgery as possible., Apply to: nostril, each, # 22 gram(s), 0 Refill(s), Pharmacy: [id number], Ointment, 180.3, cm, 10/08/23 11:49:00 EST, Height, 119.6, kg, 10/08/23 11:49:00 EST, Dosing Weight Start Date: 10/08/23 Status: Ordered 24 hr NIFEdipine 30 mg extended release oral tablet (20 sources) Dihydropyridine Calcium Channel Elza Start: 06-07-2025 take 1 tablet by mouth once daily Start: 10-25-2023 End: 10-25-2023 Procardia XL Start: 10/25/23 9 :00:00 AM EST, Dose = 60 mg, = 1 tab(s), Oral, 0, 10/22/23 20:05:00 EST Start Date: 10/25/23 Stop Date: 10/25/23 Status: Completed Start: 04-20-2022 take 1 tablet by arlene th once daily in the morning NIFEdipine (Eqv-Procardia XL) 60 mg oral tablet, extended release 1 tab(s), Oral, qAM, # 90 tab(s), 0 Refill(s), Pharmacy: [facility] ([facility]) Start Date: 04/20/22 Status: Ordered Start: 02-15-2022 End: 06-07-2025 take 1 tablet by mouth once daily Nifedipine 60 mg tablet extended release Discontinued 60 mg PO DAILY 90 0 May 03, 2025 9:02am June 07, 2025 11:04am sulindac 200 mg oral tablet (20 sources) Nonsteroidal Anti-inflammatory Drug Start: 09-28-2021 End: 05-10-2025 Turmeric extract (2 sources) Start: 10-08-2023 turmeric 1000 mg oral capsule Dose : 1,000 mg = 1 cap(s), Oral, Daily, 0 Refill(s) Start Date: 10/08/23 Status: Ordered Turmeric Root Extract (6 sources) Start: 02-15-2022 take 1 mg by mouth twice daily Turmeric Root Extract Active MG PO TWICE A DAY February 14, 2022 11:00pm Start: 02-15-2022 take 1 mg by mouth twice daily Turmeric Root Extract Active MG PO TWICE A DAY February 15, 2022 12:00am Turmeric Root Extract 500 mg tablet (1 source) Start: 02-15-2022 take 1 mg by mouth twice daily Vicks Sinex Severe 0.05% nasal spray (2 sources) Start: 10-08-2023 take 1 dose nasal ro minto twice daily as needed for congestion Vicks Sinex Severe 0.05% nasal spray Dose = 1 spray(s), Nostril, each, BID, PRN as needed for nasal congestion, 0 Refill(s) Start Date: 10/08/23 Status: Ordered Vitamin D3 (4 sources) Start: 10-08-2023 Vitamin D3 Dos e : 50 mcg = 1 tab(s), Oral, Daily, # 60 tab(s), 0 Refill(s) Start Date: 10/08/23 Status: Ordered Start: 10-08-2023 Vitamin D3 Dos e : 50 mcg = 1 tab(s), Oral, Daily, 0 Refill(s) Start Date: 10/08/23 Status: Ordered vitamin K2 (6 sources) Start: 02-15-2022 VITAMIN K2 Act genevieve PO 1 time daily February 14, 2022 11:00pm Start: 02-15-2022 VITAMIN K2 Act genevieve PO 1 time daily February 15, 2022 12:00am Vitamin K2 100 mcg oral tablet (2 sources) Start: 10-08-2023 Vitamin K2 100 mcg oral tablet 200 mcg Dose = 2 tab(s), Oral, qDay, # 100 tab(s), 0 Refill(s) Start Date: 10/08/23 Status: Ordered VITAMIN K2 100 mcg tablet (1 source) Start: 02-15-2022 take 1 tablet by mouth once daily Completed/Discontinued Medications Medication Drug Class(es) Dates Sig (Normalized) Sig (Original) cyclobenzaprine hydrochloride 5 mg oral tablet (1 source) Muscle Relaxant Start: 12-10-2024 End: 06-07-2025 take 1 tablet by mouth twice daily as needed for muscle spasms Cyclobenzaprine 5 mg tablet Discontinued 5 mg PO TWICE A DAY as needed for muscle spasm 10 0 December 10, 2024 12:00am June 07, 2025 10:23am ketoconazole 10 mg/ml medicated shampoo (7 sources) Azole Antifungal Start: 02-15-2022 End: 03-01-2022 Ketoconazole 1 % shampoo Discontinued 1 NMA TOPICAL DAILY 200 14 0 February 15, 2022 12:00am February 28, 2022 12:00am March 01, 2022 12:03am Tinea corporis Tinea corporis Labetalol (1 source) beta-Adrenergic Elza Start: 10-22-2023 End: 10-22-2023 labetalol Start: 10/22/23 7:15:00 PM EST, Dose = 10 mg, = 2 mL, IV Push, Once, Stop: 10/22/23 7:15:21 PM EST, 10/22/23 19:12:00 EST Start Date: 10/22/23 Stop Date: 10/22/23 Status: Completed magnesium oxide 250 mg oral tablet (9 sources) Start: 10-08-2023 End: 10-14-2023 Magnesium 250 mg tablet Dose : 500 mg = 2 tab(s), Oral, qDay, # 14 tab(s), 0 Refill(s) Start Date: 10/08/23 Stop Date: 10/14/23 Status: Ordered Start: 02-15-2022 take 1 tablet by mouth once da carmen omeprazole 20 mg delayed release oral capsule (3 sources) Proton Pump Inhibitor Start: 02-26-2024 End: 06-07-2025 take 1 capsule by mouth once daily Omeprazole 20 mg capsule,delayed release(DR/EC) Discontinued 20 mg PO DAILY 90 August 20, 2024 1:55pm June 07, 2025 10:23am ramipril 10 mg oral capsule (20 sources) Angiotensin Converting Enzyme Inhibitor Start: 12-11-2021 End: 12-10-2024 take 1 capsule by mouth once daily Ramipril 10 mg capsule Discontinued 10 mg PO DAILY 90 April 20, 2024 7:44am December 10, 2024 11:00am zinc gluconate 50 mg oral tablet (7 sources) Start: 02-15-2022 End: 02-26-2024 take 1 tablet by mouth once daily Zinc Gluconate 50 mg tablet Discontinued 50 mg PO DAILY February 15, 2022 12:00am February 26, 2024 10:26am Problems Active Problems Problem Classification Problem Date Documented Date Episodic/Chronic Administrative/socia l admission (1 source) Persons encountering health services in other specified circumstances; Translations: [Other reasons for seeking consultation] Episodic Calculus of urinary tract (7 sources) History of calculus of kidney; Translations: [Personal history of urinary calculi] 02-15-2022 Episodic Esophageal disorders (3 sources) Gastroesophageal reflux disease; Translations: [Gastro-esophageal reflux disease without esophagitis] Onset: 08-07-2024 12-10-2024 Chronic Comment on above: swallow study 4 Essential hypertension (20 sources) Essential hypertension; Translations: [Essential (primary) hypertension] Onset: 10-22-2023 Chronic Mycoses (8 sources) Tinea corporis; Translations: [Tinea corporis] Episodic Nutritional deficiencies (8 sources) Vitamin D deficiency; Translations: [Vitamin D deficiency, unspecified] Chronic Osteoarthritis (10 sources) Arthritis; Translations: [Unspecified osteoarthritis, unspecified site] 02-15-2022 Chronic Other circulatory disease (7 sources) H/O: hypertension; Translations: [Personal history of other diseases of the circulatory system] 02-15-2022 Episodic Other connective tissue disease (6 sources) H/O: back problem; Translations: [Personal history of other diseases of the musculoskeletal system and connective tissue] 02-15-2022 Episodic Other connective tissue disease (8 sources) Weakness of foot; Translations: [Other symptoms and signs involving the musculoskeletal system] 02-15-2022 Episodic Other connective tissue disease (7 sources) Other symptoms and signs involving the musculoskeletal system; Translations: [Flat foot] Onset: 06-07-2025 Episodic Other connective tissue disease (5 sources) Pain in right hand; Translations: [Pain in limb] 04-10-2023 Episodic Other connective tissue disease (1 source) History of back pain; Translations: [Personal history of other diseases of the musculoskeletal system and connective tissue] 02-15-2022 Episodic Other ear and sense organ disorders (5 sources) Impacted cerumen, right ear; Translations: [Impacted cerumen] 04-10-2023 Episodic Other injuries and conditions due to external causes (14 sources) H/O: fracture; Translations: [Personal history of (healed) traumatic fracture] 02-15-2022 Episodic Other nervous system disorders (3 sources) Myelomalacia; Translations: [Other specified diseases of spinal cord] 07-04-2023 Chronic Other nervous system disorders (3 sources) 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; Translations: [Lesion of ulnar nerve, bilateral upper limbs] 06-14-2023 Chronic Other nervous system disorders (2 sources) Carpal tunnel syndrome; Translations: [Carpal tunnel syndrome, bilateral upper limbs] 06-14-2023 Chronic Other nervous system disorders (5 sources) Carpal tunnel syndrome, bilateral upper limbs; Translations: [Carpal tunnel syndrome] Onset: 06-07-2025 06-14-2023 Chronic Other nervous system disorders (2 sources) Lesion of ulnar nerve, bilateral upper limbs; Translations: [Lesion of ulnar nerve] 06-14-2023 Chronic Other nervous system disorders (2 sources) Other specified diseases of spinal cord; Translations: [Other myelopathy] 07-04-2023 Chronic Other nervous system disorders (1 source) Nerve root disorder Chronic Other nervous system disorders (2 sources) Bilateral carpal tunnel syndrome; Translations: [Carpal tunnel syndrome, bilateral upper limbs] 06-14-2023 Chronic Other nervous system disorders (5 sources) Anesthesia of skin; Translations: [Disturbance of skin sensation] 04-10-2023 Episodic Other nutritional; endocrine; and metabolic disorders (3 sources) Obesity; Translations: [Obesity, unspecified] 09-07-2014 Chronic Other nutritional; endocrine; and metabolic disorders (1 source) Body mass index 30+ - obesity; Translations: [Obesity, unspecified] 06-07-2025 Chronic Residual codes; unclassified (7 sources) H/O Spinal surgery; Translations: [Other specified postprocedural states] 02-15-2022 Episodic Screening and history of mental health and substance abuse codes (1 source) Patient encounter status; Translations: [Encounter for screening for depression] 06-07-2025 Episodic Spondylosis; intervertebral disc disorders; other back problems (12 sources) Displacement of cervical intervertebral disc without myelopathy; Translations: [Other cervical disc displacement at C4-C5 level] Onset: 10-22-2023 07-04-2023 Chronic Comment on above: Cleared for surgery 09/07/14. Spondylosis; intervertebral disc disorders; other back problems (20 sources) Chronic low back pain; Translations: [Chronic low back pain] Onset: 06-07-2025 Episodic Unclassified (2 sources) Eye glasses, device (physical object) 08-27-2014 Unclassified (1 source) M54.12 - Radiculopathy, cervical region,M54.16 - Radiculopathy, lumbar region Past or Other Problems Problem Classification Problem Date Documented Date Episodic/Chronic Immunizations and screening for infectious disease (7 sources) Encounter for immunization; Translations: [Need for prophylactic vaccination and inoculation against unspecified single disease] Onset: 07-09-2024 04-10-2023 Episodic Malaise and fatigue (2 sources) Asthenia 09-07-2014 Episodic Nausea and vomiting (1 source) Nausea; Translations: [Nausea] Onset: 10-23-2023 Episodic Other lower respiratory disease (1 source) Chronic cough; Translations: [Chronic cough] Onset: 11-04-2024 Episodic Other screening for suspected conditions (not mental disorders or infectious disease) (3 sources) Encounter for screening for cardiovascular disorders; Translations: [Screening for other and unspecified cardiovascular conditions] Onset: 07-09-2024 Episodic Results Test Name Value Interpretation Reference Range Facility CBC W/Diff, Automatedon 10-3 Absolute Lymph 2.12 X10 3/uL Normal 0.83-4.51 [facility] Comment on above: Performed By: #### L 500.4100, L500.4050, L100.0100 #### [facility] [address] [place], [address] Absolute Neut 3.8 X10 3/uL Normal 2.0-7.7 [facility] Comment on above: Performed By: #### L 500.4100, L500.4050, L100.0100 #### [facility] [address] [place], [address] Basophils/100 WBC (Bld) 0.6 % Normal 0-1 [facility] Comment on above: Performed By: #### L 500.4100, L500.4050, L100.0100 #### [facility] [address] [place], [address] Eosinophils/100 WBC (Bld) 3.6 % Normal 0-5 [facility] Comment on above: Performed By: #### L 500.4100, L500.4050, L100.0100 #### [facility] [address] [place], [address] Erythrocyte distribution width (RBC) [Ratio] 12.6 % Normal 11.6-14.6 [facility] Comment on above: Performed By: #### L 500.4100, L500.4050, L100.0100 #### [facility] [address] [place], [address] Hematocrit (Bld) [Volume fraction] 45.0 % Normal 40-54 [facility] Comment on above: Performed By: #### L 500.4100, L500.4050, L100.0100 #### [facility] [address] [place], [address] Hemoglobin (Bld) [Mass/Vol] 15.7 g/dL Normal 13.0-16.5 [facility] Comment on above: Performed By: #### L 500.4100, L500.4050, L100.0100 #### [facility] [address] [place], [address] IG% 0.200 Normal 0.0-0.9 [facility] Comment on above: Result Comment: IG% - Immature Granulocytes (promyelocytes, myelocytes and metamyelocytes) > 1% indicates that a LEFT SHIFT is Present. Performed By: #### L 500.4100, L500.4050, L100.0100 #### [facility] [address] [place], [address] Lymphocytes/100 WBC (Bld) 32.1 % Normal 19-41 [facility] Comment on above: Performed By: #### L 500.4100, [id number], L100.0100 #### [facility] [address] [place], [address] MCH (RBC) [Entitic mass] 34.0 pg High 27.0-32.0 [facility] Comment on above: Performed By: #### L 500.4100, L500.4050, L100.0100 #### [facility] [address] [place], [address] MCHC (RBC) [Mass/Vol] 34.9 g/dL Normal 32-36 [facility] Comment on above: Performed By: #### L 500.4100, L500.4050, L100.0100 #### [facility] [address] [place], [address] MCV (RBC) [Entitic vol] 97.4 fL High 80-94 [facility] Comment on above: Performed By: #### L 500.4100, [id number], L100.0100 #### [facility] [address] [place], [address] Monocytes/100 WBC (Bld) 6.4 % Normal 0-10 [facility] Comment on above: Performed By: #### L 500.4100, [id number], L100.0100 #### [facility] [address] [place], [address] Neutrophils/100 WBC (Bld) 57.1 % Normal 47-70 [facility] Comment on above: Performed By: #### L 500.4100, [id number], L100.0100 #### [facility] [address] [place], [address] Nucleated RBC (Bld) [#/Vol] 0 10*3/uL Normal 0-5 [facility] Comment on above: Performed By: #### L 500.4100, [id number], L100.0100 #### [facility] [address] [place], [address] Platelet mean volume (Bld) [Entitic vol] 9.3 fL Normal 6.2-12.0 [facility] Comment on above: Performed By: #### L 500.4100, [id number], L100.0100 #### [facility] [address] [place], [address] Platelets (Bld) [#/Vol] 278 10*3/uL Normal 150-450 [facility] Comment on above: Performed By: #### L 500.4100, [id number], L100.0100 #### [facility] [address] [place], [address] RBC (Bld) [#/Vol] 4.62 10*6/uL Normal 4.6-6.2 [facility] Comment on above: Performed By: #### L 500.4100, L500.4050, L100.0100 #### [facility] [address] [place], [address] RDW SD 45.0 fl High 35.1-43.9 [facility] Comment on above: Performed By: #### L 500.4100, [id number], L100.0100 #### [facility] [address] [place], [address] WBC (Bld) [#/Vol] 6.6 10*3/uL Normal 4.4-11.0 [facility] Comment on above: Performed By: #### L 500.4100, [id number], L100.0100 #### [facility] [address] [place], [address] Comprehensive Metabolic Prof [facility] 06-24-2025 Albumin [Mass/Vol] 4.3 g/dL Normal 3.4-4.8 [facility] Comment on above: Performed By: #### L 500.4100, [id number], L100.0100 #### [facility] [address] [place], [address] Albumin/Globulin [Mass ratio] 1.4 {ratio} Normal 0.9-2.4 [facility] Comment on above: Performed By: #### L 500.4100, [id number], L100.0100 #### [facility] [address] [place], [address] ALK PHOS 58 U/L Normal 40-129 [facility] Comment on above: Performed By: #### L 500.4100, [id number], L100.0100 #### [facility] [address] [place], [address] ALT [Catalytic activity/Vol] 25 U/L Normal <=46 [facility] Comment on above: Performed By: #### L 500.4100, [id number], L100.0100 #### [facility] [address] [place], [address] AST [Catalytic activity/Vol] 23 U/L Normal <=37 [facility] Comment on above: Performed By: #### L 500.4100, [id number], L100.0100 #### [facility] [address] [place], [address] Bilirubin [Mass/Vol] 0.67 mg/dL Normal 0.00-1.30 [facility] Comment on above: Performed By: #### L 500.4100, [id number], L100.0100 #### [facility] [address] [place], [address] BUN/CRE 25.2 RATIO High 10-20 [facility] Comment on above: Performed By: #### L 500.4100, [id number], L100.0100 #### [facility] [address] [place], [address] Calcium [Mass/Vol] 9.7 mg/dL Normal 7.6-11.0 [facility] Comment on above: Performed By: #### L 500.4100, [id number], L100.0100 #### [facility] [address] [place], [address] Chloride [Moles/Vol] 104 mmol/L Normal 98-108 [facility] Comment on above: Performed By: #### L 500.4100, [id number], L100.0100 #### [facility] [address] [place], [address] CO2 [Moles/Vol] 27.4 mmol/L Normal 21.0-32.0 [facility] Comment on above: Performed By: #### L 500.4100, L500.4050, L100.0100 #### [facility] [address] [place], [address] Creatinine [Mass/Vol] 0.88 mg/dL Normal 0.70-1.20 [facility] Comment on above: Performed By: #### L 500.4100, L500.4050, L100.0100 #### [facility] [address] [place], [address] GAP 9 Normal 5-15 [facility] Comment on above: Performed By: #### L 500.4100, L500.4050, L100.0100 #### [facility] [address] [place], [address] GFR/1.73 sq M.predicted among non-blacks MDRD (S/P/Bld) [Vol rate/Area] 90 mL/min/{1.73_m2} Normal >60 [facility] Comment on above: Result Comment: mL/m in/1.73m2 CKD-EPI Creatinine Equation (2020) Performed By: #### L 500.4100, L500.4050, L100.0100 #### [facility] [address] [place], [address] Globulin (S) [Mass/Vol] 3.1 g/dL Normal 2.2-4.2 [facility] Comment on above: Performed By: #### L 500.4100, L500.4050, L100.0100 #### [facility] [address] [place], [address] Glucose [Mass/Vol] 118 mg/dL High 70-99 [facility] Comment on above: Performed By: #### L 500.4100, L500.4050, L100.0100 #### [facility] [address] [place], [address] Potassium [Moles/Vol] 4.6 mmol/L Normal 3.3-5.1 [facility] Comment on above: Performed By: #### L 500.4100, L500.4050, L100.0100 #### [facility] [address] [place], [address] Sodium [Moles/Vol] 140 mmol/L Normal 133-145 [facility] Comment on above: Performed By: #### L 500.4100, L500.4050, L100.0100 #### [facility] [address] [place], [address] T PROT 7.4 g/dL Normal 5.9-8.4 [facility] Comment on above: Performed By: #### L 500.4100, L500.4050, L100.0100 #### [facility] [address] [place], [address] Urea nitrogen [Mass/Vol] 22 mg/dL High 4-19 [facility] Comment on above: Performed By: #### L 500.4100, L500.4050, L100.0100 #### [facility] [address] [place], [address] Hemoglobin A1con 06-24-2025 HbA1c (Bld) [Mass fraction] 5.7 % Normal <=5.6 [facility] Comment on above: Result Comment: Norm al < 5.7 % Prediabetic 5.7 - 6.4 % Diabetic >or= 6.5 % Please note range changes. Performed By: #### L 501.9985 #### [facility] [address] [place], [address] Lipid Profileon 06-24-2025 CHOL:HDL 3.81 Normal [facility] Comment on above: Performed By: #### L 500.4100, L500.4050, L100.0100 #### [facility] [address] [place], [address] Cholesterol [Mass/Vol] 182 mg/dL Normal <=200 [facility] Comment on above: Result Comment: Chol esterol level, Desirable <200 mg/dL Borderline high cholesterol 200-239 mg/dL High cholesterol >=240 mg/dL Recommendations of the NCEP Adult Treatment Panel for the following risk-cutoff thresholds for the [place] population. Performed By: #### L 500.4100, L500.4050, L100.0100 #### [facility] [address] [place], [address] Cholesterol in HDL [Mass/Vol] 48 mg/dL Normal [facility] Comment on above: Result Comment: [place] onal Cholesterol Education Program (NCEP) guidelines: <40 mg/dL: Low HDL-cholesterol (major risk factor for CHD) >= 60 mg/dL: High HDL-cholesterol (negative risk factor for CHD) HDL-cholesterol is affected by a number of factors, e.g. smoking, exercise, hormones, sex and age. Performed By: #### L 500.4100, L500.4050, L100.0100 #### [facility] [address] [place], [address] Cholesterol in LDL [Mass/Vol] 111 mg/dL Normal [facility] Comment on above: Result Comment: Bord jsncnv=286-478 mg/dL Higher Ohkk=082 mg/dL or greater Almeida Equation 2020 for LDL-C Performed By: #### L 500.4100, L500.4050, L100.0100 #### [facility] [address] [place], [address] Cholesterol in VLDL [Mass/Vol] 26 mg/dL Normal 5-40 [facility] Comment on above: Performed By: #### L 500.4100, L500.4050, L100.0100 #### [facility] [address] [place], [address] Triglyceride [Mass/Vol] 132 mg/dL Normal [facility] Comment on above: Result Comment: The drugs N-Acetylcysteine and Metamizole may falsely depress this assay. Normal range: <150 mg/dL Borderline High: 150-199 mg/dL High: 200-499 mg/dL Very High: >500 mg/dL Performed By: #### L 500.4100, L500.4050, L100.0100 #### [facility] [address] [place], [address] Spine Cervical (Routine)on Spine Cervical (Routine) [facility] [address] [place] [address] Spine Cervical (Routine) MR#: [id number] Acct: [id number] Name: FRED MCKEON Rep #: [id number] : 1950 M 75 From: Christiano Wilson MD PCP: Dr. Hyacinth Bran MD Status: DEP CLI Study: Spine Cervical (Routine) Date of Exam: Exam# [id number] Ordering Dr: Hyacinth Bran MD PROCEDURE: SPINE CERVICAL (ROUTINE) 06/23/2025 REASON FOR EXAM: CERVICAL RADICULOPATHY TECHNIQUE: Procedure Code: MRISP Modality: MR Procedure: SPINE CERVICAL (ROUTINE) Multiplanar and multisequence images were obtained without IV contrast administration. FINDINGS: Prior ACDF extends from C3-C7. No Chiari deformity. No compression deformity. Negative for subluxation. C2-3 demonstrates central annular bulging with mild canal narrowing. At C3-4 dorsal osteophytic spur also results in mild canal narrowing, abutting the ventral cord. At C4-5, residual osteophytic spurring results in mild canal narrowing and there is chronic myelomalacia in the left side of the cord. Asymmetric severe right C5 foraminal narrowing is present. At C5-6, residual mild foraminal narrowing on the right and mild central canal narrowing. At C6-7 disc osteophyte complex results in mild stenosis with mild left C7 foraminal narrowing. C7-T1 exhibits no central stenosis. Mild bilateral foraminal narrowing more prominent on the left than the right MRI/Spine Cervical (Routine) IMPRESSION: 1. Extensive prior cervical fusion. 2. Chronic myelomalacia in the cord at C4-5. 3. Multilevel foraminal stenosis. 4. No cord compression. Multilevel mild canal narrowing Reading Location[facility] CC: Dr. Hyacinth Bran MD [employer] Console Operator Track: Signed Normal [facility] Spine Lumbar (Routine)on Spine Lumbar (Routine) [facility] [address] [place] [address] Spine Lumbar (Routine) MR#: [id number] Acct: [id number] Name: FRED MCKEON Rep #: [id number] : 1950 M 75 From: Christiano Wilson MD PCP: Dr. Hyacinth Bran MD Status: DEP CLI Study: Spine Lumbar (Routine) Date of Exam: 06/23/25 Exam# [id number] Ordering Dr: Hyacinth Bran MD PROCEDURE: SPINE LUMBAR (ROUTINE) 06/23/2025 REASON FOR EXAM: LUMBAR RADICULOPATHY TECHNIQUE: Procedure Code: MRISPL Modality: MR Procedure: SPINE LUMBAR (ROUTINE) FINDINGS: Normal lumbar alignment and vertebral body height. Posterior lumbar pedicle screw fusion between L3 and S1. Chronic appearing compressive deformity at L2. Increased signal on inversion recovery images has the appearance of Modic type 1 change rather than fracture related edema. Normal conus without compression. Minor annular bulging at T11-12. T12-L1 is unremarkable. At L1-2, broad-based concentric disc bulge produces jkma-hp-tcjcfwrg spinal stenosis with inferior foraminal narrowing that is more prominent on the left than the right. At L2-3 there is moderate circumferential spinal canal narrowing from facet degeneration, ligamentous hypertrophy and broad-based disc bulging. Moderate foraminal narrowing also present at this level. At L3-4, posterior decompression and fusion without recurrent pathology. At L4-5, prior posterior decompression and fusion without recurrent pathology. At L5-S1, prior decompression and fusion without recurrent pathology. MRI/Spine Lumbar (Routine) IMPRESSION: Lfpv-fy-jgcyknbn spinal stenosis at L1-2 with moderate canal narrowing at L2-3. Bilateral foraminal narrowing at both levels. Postsurgical changes without recurrent pathology at the surgical levels. Chronic appearing compression deformity of L2 with probable Modic 1 changes Reading Location: [facility] CC: Dr. Hyacinth Bran MD [employer] Console Operator Track: Signed Normal [facility] Inital Evaluation (1) - PTon 06-09-2025 Inital Evaluation (1) - PT [facility] Physical Therapy [facility] [address] [place] [address] / REHABILITATION SERVICES INITIAL EVALUATION MR#: [id number] Acct: [id number] Name: FRED MCKEON Rep #: [id number] : 1950 75 From: Steve Cisse DPT, OCS, CSCS Referring Dr.: Dr. Hyacinth Bran MD Status: R EG RCR Insurance: MEDICARE PART A B AAR Patient's Visit Information Visit Information Visit Information: FRED MCKEON is a 75 year old M referred to Physical Therapy by Dr. Hyacinth Bran MD with a diagnosis of lumbar radiculopathy, cervical radiculopathy. Date of Evaluation: 06/09/25 Physical Therapist: Steve Cisse DPT, OCS, CSCS Visit Plan Frequency: 3x /Week Duration: 4-6 Weeks Plan: 3x/week for 2 weeks in pool to teeach balance, quad and HS streteches and back ROm as well as general strength to do in pool in [facility] on vacation then f/u with EG after vacation to decid on rest of POC poolk vs home. work on standing and dynamic balance as safety allows in pool Please get I as possible by his trip to [facility] 06/25 Subjective Subjective: LBP for years, neck pain long time adn had surgery a year ago which helped. Getting on and off tractor adn climbing under colleen lately has made it worse in LB. Uses cane at home and walking is worse. Legs feel weak from back and being sedentary. Sleeps well. Tingling in fingrs since prior to surgery. No LE symptoms. not great feling in feet for long time. 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 Spends day: Walks the driveway with stand up walker, uses wh walker out and about. Walks further with stand up walker. Feels better but tired after walking. Basic ADLs I, cooking I. leans on the counter. Hobbies: not anymore, can;t golf due to balance . Spine surgery LB 6 yrs ago fused. Steps: feel weak, not easy. Pain LBP: Pain Intensity (Out of 10): 0 Pain Intensity Range: 0 and 7 Comment: worse walking, comfy at rest. Objective Objective: brace on L ankle due to weak ankle, 8 yrs, turned ankle alot. Hard to stand up tall as it hurts his back. neds walker to stand up tall, Unable to stand safely without upper extrmiety support as jeison tends posterior in his balance. neck aROM 50 xt, 50 rotations without pain. Lumbar aROM ext barely to neutral, flexion max limited, SB mod limited painful. ankle strength l poor adn uses brace, unable to heel raise or toe raise, AROM ankle WFL but weak L >R. knee strength 4- ext adn flexion B. hip strength 3 abd and ext B 3+ flexion with core instability. reflexes 0/3 bi tri, achilles and patella sensation diminished to gross light touch B feet and neuropathic gait pattern avoiding push off. UE strength 4/5 without myotomal problems. - SLR, - Slump, - cervical compression. Pt present with balance deficits consistent with neuropathy in feet suspicious of spinal problems and having MRI in 2 weeks of neck and Lb appropriately. Also very sedentary and not managing balance or strenght deficits well with activity. Balance/Special Test Scores Functional Gait Assessment Score: 10 % Disability: 66.6700 Oswestry Low Back Score: 17 Goals Goal 1:: I appropriate pool or HEP to minimize effects of seedentarism Goal Time Frame: 4-6 Weeks Goal 2:: Exit chair without UE safe adn I Goal Time Frame: 4-6 Weeks Goal 3:: stand 30 seconds without UE assist without drifting BW. Goal Time Frame: 4-6 Weeks Goal 4:: Pt feel 50% better in overall strength adn mobility. Goal Time Frame: 4-6 Weeks Goal 5:: LBack oswestry score 18 or less. Goal Time Frame: 4-6 Weeks Rehabilitation Potential Physical Therapy Diagnosis: balance and strength deficits likely neirologic and effecting ability to mobilize safely. Rehabilitation Potential: Questionable Anticipated Interventions Patient/Client Instruction: Educate patient on: Condition and Plan of Care For the Purpose of:: To decrease pain and To improve gait and locomotor functions Therapeutic Exercise to Include: Strength training, Flexibilty training, Gait and locomotor training, In an aquatic setting, Passive ROM and Active ROM For the Purpose of:: To decrease pain, To increase ROM, To improve nutrient delivery to tissue, To improve muscle performance and motor function, To increase tolerance to activity/condition/ position and To improve gait and locomotor functions Text: Thank you for the opportunity to evaluate your patient. For Medicare and Medicare HMO plans, please review the plan of care and approve it. It will need to be FAXED BACK to us at [phone] for Medicare purposes. For Medicare only, by signing this I certify the plan of care. Please let me know if there are questions or concerns regarding this plan of care. Physician Signature: __Date: 06/09/25 1402 (more content not included)... Normal [facility] Internal Medicine Office Vis iton 06-03-2025 Internal Medicine Office Visit [facility] Internal Medicine [address] [place] [address] [place] [address] OFFICE VISIT Date of Service: 06/07/25 MR#: [id number] Acct: [id number] Name: FRED MCEKON Rep #: [id number] : 1950 Provider: Dr. Hyacinth altamirano MD Age/Sex: 75/M Location: [facility] Status: Signed Intake Vital Signs 12/10/24 10:30 06/07/25 10:30 Height 6 ft 6 ft Weight: 252 lb BMI 34.2 BP 132/84 H Blood Pressure Location Rt brachial Position Sitting Respiration 18 Pulse 75 Pulse Source Monitor Temp 96.6 F L Temp Source Temporal Pulse Oximetry (%) 92 Oxygen Delivery Method room air Intake Visit Reasons: 6 M FU Rouge Mixer Required: No Accompanied by: Self Is patient in pain?: No Allergies No Known Allergies Allergy (Unverified 06/07/25 10:22) Medications ???Medication ???Instructions ???Recorded ???Confirmed ???Type VITAMIN K2 PO 1XD 02/15/22 06/07/25 History aspirin 81 mg tablet,delayed 81 mg PO DAILY 02/15/22 06/07/25 H istory release (Adult Low Dose Aspirin) cholecalciferol (vitamin D3) 125 125 mcg PO DAILY 02/15/22 06/07/25 History mcg (5,000 unit) tablet (Vitamin D3) magnesium oxide 400 mg PO DAILY 02/15/22 06/07/25 History yznendty-xrhdzvoj-x olic acid 400 tab PO 02/15/22 06/07/25 History mcg-vit K 20 mcg-lycop 300 mcg tablet (One-A-Day Men's Multivitamin) turmeric root extract 500 mg tablet mg PO BID 02/15/22 06/07/25 His tory handicap placard #1 ea 10/16/22 12/10/24 Rx cetirizine 10 mg tablet (Zyrtec) 10 mg PO QDAY #30 tabs 11/04/24 Rx fluticasone propionate 50 1 spray intranasal QDAY #16 grams 11/04/24 06/07/25 Rx mcg/actuation nasal spray,suspension (Flonase Allergy Relief) sulindac 200 mg tablet See Rx Instructions .Route 5 06/07/25 Rx .COMPLEX #180 tabs losartan 100 mg tablet 100 mg PO QDAY #90 tabs 06/07/25 1 Rx nifedipine 30 mg tablet,extended 30 mg PO DAILY #90 tabs 06/07/25 1 Rx release Have you fallen in the past year?: Yes PFSH Medical History Cubital tunnel syndrome, bilateral Bilateral carpal tunnel syndrome Cervical radiculopathy Hx of fracture of arm History of kidney stones Hx of primary hypertension Hx of fracture History of back pain Surgical History Hx of repair of left rotator cuff History of back surgery Family History Mother Arthritis Hypertension High cholesterol Osteoporosis CVA (cerebral vascular accident) Father Arthritis Mesothelioma Hypertension High cholesterol Grandfather Colon cancer Social History (Updated 06/07/25 @ 10:[address] 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 1. Little interest or pleasure in doing things: not at all 2. Feeling down, depressed, or hopeless: not at all 3. Trouble falling or staying asleep, or sleeping too much: not at all 4. Feeling tired or having little energy: more than half the days 5. Poor appetite or overeating: not at all 6. Feeling bad about yourself - or that you are a failure or have let yourself and your family down: not at all 7. Trouble concentrating on things, such as reading the newspaper or watching television: not at all 8. Moving or speaking so slowly that other people could have noticed? - Or the opposite - being so fidgety or restless that you have been moving around a lot more than usual: not at all 9. Thoughts that you would be better off or of hurting yourself in some way: not at all Total score: 2 If you checked off any problems, how difficult have these problems made it for you to do your work, take care of things at home, or get along with other people?: not difficult at all Source: Developed by Drs. Layton Reeder, Rocio Young, Shashank Ayala and colleagues, with an educational teetee from [employer]. MACY-7 BMS MACY-7 Feeling nervous, anxious, or on edge: 0 = Not at all Not being able to stop or control worryin = Not at all Worrying too much about different things: 0 = Not at all Trouble relaxin = Not at all Being so restless that it is hard to sit still: 0 = Not at all Becoming easily (more content not included)... Normal [facility] Internal Medicine Office Vis iton 12-08-2024 Internal Medicine Office Visit [facility] [address] [place] [address] [place] [address] OFFICE VISIT Date of Service: 12/10/24 MR#: [id number] Acct: [id number] Name: FRED MCKEON Rep #: [id number] : 1950 Provider: Dr. Hyacinth altamirano MD Age/Sex: 74/M Location: [facility] Status: Signed Intake Vital Signs 11/04/24 10:54 11/04/24 12:19 12/10/24 10:30 Height 6 ft 6 ft 6 ft Weight: 260 lb BMI 35.2 BP 144/88 H Blood Pressure Location Lt brachial Position Sitting Respiration 20 H Pulse 98 Pulse Source Monitor Temp 97.8 F Temp Source Temporal Pulse Oximetry (%) 95 Oxygen Delivery Method room air Intake Visit Reasons: 1 M FU Chief Complaint: 1 M FU Rouge Mixer Required: No Is patient in pain?: Yes (2 back pain ) Allergies No Known Allergies Allergy (Unverified 12/10/24 10:29) Medications ???Medication ???Instructions ???Recorded ???Confirmed ???Type VITAMIN K2 PO 1XD 02/15/22 12/10/24 History aspirin 81 mg tablet,delayed 81 mg PO DAILY 02/15/22 12/10/24 H istory release (Adult Low Dose Aspirin) cholecalciferol (vitamin D3) 125 125 mcg PO DAILY 02/15/22 12/10/24 History mcg (5,000 unit) tablet (Vitamin D3) magnesium oxide 400 mg PO DAILY 02/15/22 12/10/24 History vyopktni-cwkqmghl-q olic acid 400 tab PO 02/15/22 12/10/24 History mcg-vit K 20 mcg-lycop 300 mcg tablet (One-A-Day Men's Multivitamin) turmeric root extract 500 mg tablet mg PO BID 02/15/22 12/10/24 His tory handicap placard #1 ea 10/16/22 12/10/24 Rx nifedipine 60 mg tablet,extended 60 mg PO DAILY #90 tabs 04/20/24 0 12/10/24 Rx release sulindac 200 mg tablet See Rx Instructions .Route 07/20/ 4 12/10/24 Rx .COMPLEX #180 tabs omeprazole 20 mg capsule,delayed 20 mg PO DAILY #90 caps 08/20/24 0 12/10/24 Rx release cetirizine 10 mg tablet (Zyrtec) 10 mg PO QDAY #30 tabs 11/04/24 Rx fluticasone propionate 50 1 spray intranasal QDAY #16 grams 11/04/24 12/10/24 Rx mcg/actuation nasal spray,suspension (Flonase Allergy Relief) cyclobenzaprine 5 mg tablet 5 mg PO BID PRN muscle spasm #10 0 12/10/24 12/10/24 Rx tabs losartan 50 mg tablet 50 mg PO QDAY #30 tabs 12/10/24 Rx Have you fallen in the past year?: No PFSH Medical History Cubital tunnel syndrome, bilateral Bilateral carpal tunnel syndrome Cervical radiculopathy Hx of fracture of arm History of kidney stones Hx of primary hypertension Hx of fracture History of back pain Surgical History Hx of repair of left rotator cuff History of back surgery Family History Mother Arthritis Hypertension High cholesterol Osteoporosis CVA (cerebral vascular accident) Father Arthritis Mesothelioma Hypertension High cholesterol Grandfather Colon cancer Social History household members: significant other current occupational status: retired 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 He is up to date on his routine blood work and screening.??? He isn't due for any immunizations.??? He does not smoke, and does not need any refills.??? He reports he is eating healthy and reports his activity level has been a little better. His balance, foot weakness and hand pain have been stable. He recently saw the surgeon and was told to follow up as needed. He hasn't had any falls since he was last seen. He does continue to have some numbness in his hands bilaterally which waxes and wanes in severity. The patient takes sulindac for his arthritis. He states he can notice a difference if he doesn't take it. He reports generalized joint pains. He rates his pain 2-3/10 currently stating it is primarily in his neck today stating it started to bother him about a week ago. He does check his blood pressure at home stating it is averaging in the 120s/80s range.??? He is taking his medications as prescribed without any problems. He reports he does monitor his salt intake. He hasn't had any problems with GERD. He states he does avoid eating late at night. His most recent EGD was done last month and was normal. He reports he hasn't had any further dizzy spells or significant vision changes. He states he did see the eye (more content not included)... Normal [facility] Chest PA and Lateralon 11-04 Chest PA and Lateral [facility] [address] [place] [address] Chest PA and Lateral MR#: [id number] Acct: [id number] Name: FRED MCKEON Rep #: [id number] : 1950 M 74 From: Tho Dent MD PCP: Dr. Hyacinth Bran MD Status: DEP AMB Study: Chest PA and Lateral Date of Exam: 11/04/24 Exam# [id number] Ordering Dr: Hyacinth Bran MD EXAM: XR Chest, 2 Views CLINICAL INDICATION: CHRONIC COUGH TECHNIQUE: Frontal and lateral views of the chest. COMPARISON: No relevant prior studies available. FINDINGS: LUNGS AND PLEURAL SPACES: Unremarkable. No consolidation. No pneumothorax. HEART: Unremarkable. No cardiomegaly. MEDIASTINUM: Unremarkable. Normal mediastinal contour. BONES/JOINTS: Unremarkable. No acute fracture. RAD/Chest PA and Lateral IMPRESSION: No acute cardiopulmonary process. Reading Location: [facility] CC: Dr. Hyacinth Bran MD [employer] Console Operator Track: Signed Normal [facility] [facility] Vis jaquelindinh 11-03-2024 Internal Medicine Office Visit [facility] [address] [place] [address] [place] [address] OFFICE VISIT Date of Service: 11/04/24 MR#: [id number] Acct: [id number] Name: FRED MCKEON Rep #: [id number] : 1950 Provider: Dr. Hyacinth altamirano MD Age/Sex: 74/M Location: [facility] Status: Signed Intake Vital Signs 07/09/24 11:01 11/04/24 10:54 Height 6 ft 6 ft Weight: 254 lb BMI 34.4 BP 142/78 H Blood Pressure Location Lt brachial Position Sitting Respiration 12 Pulse 93 Pulse Source Monitor Temp 96.8 F L Temp Source Temporal Pulse Oximetry (%) 96 Oxygen Delivery Method room air Intake Visit Reasons: 4 M FU Chief Complaint: 4 M FU Rouge Mixer Required: No Accompanied by: Self Is patient in pain?: No Allergies No Known Allergies Allergy (Unverified 11/04/24 10:49) Medications ???Medication ???Instructions ???Recorded ???Confirmed ???Type VITAMIN K2 PO 1XD 02/15/22 11/04/24 History aspirin 81 mg tablet,delayed 81 mg PO DAILY 02/15/22 11/04/24 H istory release (Adult Low Dose Aspirin) cholecalciferol (vitamin D3) 125 125 mcg PO DAILY 02/15/22 11/04/24 History mcg (5,000 unit) tablet (Vitamin D3) magnesium oxide 400 mg PO DAILY 02/15/22 11/04/24 History hynpgxoq-emxjmvhv-f olic acid 400 tab PO 02/15/22 11/04/24 History mcg-vit K 20 mcg-lycop 300 mcg tablet (One-A-Day Men's Multivitamin) turmeric root extract 500 mg tablet mg PO BID 02/15/22 11/04/24 His tory handicap placard #1 ea 10/16/22 11/04/24 Rx nifedipine 60 mg tablet,extended 60 mg PO DAILY #90 tabs 04/20/24 0 11/04/24 Rx release ramipril 10 mg capsule 10 mg PO DAILY #90 caps 04/20/24 0 11/04/24 Rx sulindac 200 mg tablet See Rx Instructions .Route 4 11/04/24 Rx .COMPLEX #180 tabs omeprazole 20 mg capsule,delayed 20 mg PO DAILY #90 caps 08/20/24 0 11/04/24 Rx release cetirizine 10 mg tablet (Zyrtec) 10 mg PO QDAY #30 tabs 11/04/24 Rx fluticasone propionate 50 1 spray intranasal QDAY #16 grams 11/04/24 11/04/24 Rx mcg/actuation nasal spray,suspension (Flonase Allergy Relief) Have you fallen in the past year?: No PFSH Medical History Cubital tunnel syndrome, bilateral Bilateral carpal tunnel syndrome Cervical radiculopathy Hx of fracture of arm History of kidney stones Hx of primary hypertension Hx of fracture History of back pain Surgical History Hx of repair of left rotator cuff History of back surgery Family History Mother Arthritis Hypertension High cholesterol Osteoporosis CVA (cerebral vascular accident) Father Arthritis Mesothelioma Hypertension High cholesterol Grandfather Colon cancer Social History household members: significant other current occupational status: retired 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 He is up to date on his routine blood work.??? He had his colonoscopy earlier this week.??? He isn't due for any immu nizations.??? He does not smoke, and does not need any refills.??? He reports he is eating healthy and reports his activity level hasn't been as good as it should be. He is trying to move around more with the improved weather. His balance, foot weakness and hand pain have been stable. He continues to follow with the surgeon and will see them soon. He hasn't had any falls since he was last seen. He does continue to have some numbness in his hands bilaterally which waxes and wanes in severity. The patient takes sulindac for his arthritis. He states he can notice a difference if he doesn't take it noting a big difference when he had to hold it for his colonoscopy. He reports generalized joint pains. He denies any significant pain currently, however. He does check his blood pressure at home stating it is averaging in the 120s/80s range.??? He reports when he went for an EGD last week, it was 132/79. He is taking his medications as prescribed without any problems, however, notes a cough as below.??? He reports he does monitor his salt intake reporting he is doing better with that. The patient continues to do well with the omeprazole. He denies any symptoms of GERD at this time. He reports he is more aware of when he is eati (more content not included)... Normal [facility] CBC W/Diff, Automatedon 06-26 Absolute Lymph 1.95 X10 3/uL Normal 0.83-4.51 [facility] Comment on above: Performed By: #### L 100.0100, L500.4050, L500.4100 ####[facility] [address] [place], [address] Absolute Neut 3.9 X10 3/uL Normal 2.0-7.7 [facility] Comment on above: Performed By: #### L 100.0100, L500.4050, L500.4100 ####[facility] [address] [place], [address] Basophils/100 WBC (Bld) 0.9 % Normal 0-1 [facility] Comment on above: Performed By: #### L 100.0100, L500.4050, L500.4100 ####[facility] [address] [place], [address] Eosinophils/100 WBC (Bld) 3.2 % Normal 0-5 [facility] Comment on above: Performed By: #### L 100.0100, L500.4050, L500.4100 ####[facility] [address] [place], [address] Erythrocyte distribution width (RBC) [Ratio] 12.8 % Normal 11.6-14.6 [facility] Comment on above: Performed By: #### L 100.0100, L500.4050, L500.4100 ####[facility] [address] [place], [address] Hematocrit (Bld) [Volume fraction] 46.9 % Normal 40-54 [facility] Comment on above: Performed By: #### L 100.0100, L500.4050, L500.4100 ####[facility] [address] [place], [address] Hemoglobin (Bld) [Mass/Vol] 15.8 g/dL Normal 13.0-16.5 [facility] Comment on above: Performed By: #### L 100.0100, L500.4050, L500.4100 ####[facility] [address] [place], [address] IG% 0.300 Normal 0.0-0.9 [facility] Comment on above: Result Comment: IG% - Immature Granulocytes (promyelocytes, myelocytes and metamyelocytes) > 1% indicates that a LEFT SHIFT is Present. Performed By: #### L 100.0100, L500.4050, L500.4100 ####[facility] [address] [place], [address] Lymphocytes/100 WBC (Bld) 29.5 % Normal 19-41 [facility] Comment on above: Performed By: #### L 100.0100, L500.4050, L500.4100 ####[facility] [address] [place], [address] MCH (RBC) [Entitic mass] 33.8 pg High 27.0-32.0 [facility] Comment on above: Performed By: #### L 100.0100, L500.4050, L500.4100 ####[facility] [address] [place], [address] MCHC (RBC) [Mass/Vol] 33.7 g/dL Normal 32-36 [facility] Comment on above: Performed By: #### L 100.0100, L500.4050, L500.4100 ####[facility] [address] [place], [address] MCV (RBC) [Entitic vol] 100.4 fL High 80-94 [facility] Comment on above: Performed By: #### L 100.0100, L500.4050, L500.4100 ####[facility] [address] [place], [address] Monocytes/100 WBC (Bld) 7.7 % Normal 0-10 [facility] Comment on above: Performed By: #### L 100.0100, L500.4050, L500.4100 ####[facility] [address] [place], [address] Neutrophils/100 WBC (Bld) 58.4 % Normal 47-70 [facility] Comment on above: Performed By: #### L 100.0100, L500.4050, L500.4100 ####[facility] [address] [place], [address] Nucleated RBC (Bld) [#/Vol] 0 10*3/uL Normal 0-5 [facility] Comment on above: Performed By: #### L 100.0100, L500.4050, L500.4100 ####[facility] [address] [place], [address] Platelet mean volume (Bld) [Entitic vol] 9.4 fL Normal 6.2-12.0 [facility] Comment on above: Performed By: #### L 100.0100, L500.4050, L500.4100 ####[facility] [address] [place], [address] Platelets (Bld) [#/Vol] 355 10*3/uL Normal 150-450 [facility] Comment on above: Performed By: #### L 100.0100, L500.4050, L500.4100 ####[facility] [address] [place], [address] RBC (Bld) [#/Vol] 4.67 10*6/uL Normal 4.6-6.2 [facility] Comment on above: Performed By: #### L 100.0100, L500.4050, L500.4100 ####[facility] [address] [place], [address] RDW SD 47.2 fl High 35.1-43.9 [facility] Comment on above: Performed By: #### L 100.0100, L500.4050, L500.4100 ####[facility] [address] [place], [address] WBC (Bld) [#/Vol] 6.6 10*3/uL Normal 4.4-11.0 [facility] Comment on above: Performed By: #### L 100.0100, L500.4050, L500.4100 ####[facility] [address] [place], [address] [facility] Albumin [Mass/Vol] 4.1 g/dL Normal 3.2-5.0 [facility] Comment on above: Performed By: #### L 100.0100, L500.4050, L500.4100 ####[facility] [address] [place], [address] Albumin/Globulin [Mass ratio] 1.1 {ratio} Normal 0.9-2.4 [facility] Comment on above: Performed By: #### L 100.0100, L500.4050, L500.4100 ####[facility] [address] [place], [address] ALK P 70 U/L Normal 45-117 [facility] Comment on above: Performed By: #### L 100.0100, L500.4050, L500.4100 ####[facility] [address] [place], [address] ALT [Catalytic activity/Vol] 33 U/L Normal 16-61 [facility] Comment on above: Performed By: #### L 100.0100, L500.4050, L500.4100 ####[facility] [address] [place], [address] AST [Catalytic activity/Vol] 26 U/L Normal 15-37 [facility] Comment on above: Performed By: #### L 100.0100, L500.4050, L500.4100 ####[facility] [address] [place], [address] Bilirubin [Mass/Vol] 1.00 mg/dL Normal 0.20-1.00 [facility] Comment on above: Result Comment: For patients on eltrombopag therapy, use of Dimension [place] TBIL is not recommended. Performed By: #### L 100.0100, L500.4050, L500.4100 ####[facility] [address] [place], [address] BUN/CRE 22.4 RATIO High 10-20 [facility] Comment on above: Performed By: #### L 100.0100, L500.4050, L500.4100 ####[facility] [address] [place], [address] CA,Total 9.3 mg/dL Normal 8.5-10.1 [facility] Comment on above: Performed By: #### L 100.0100, L500.4050, L500.4100 ####[facility] [address] [place], [address] Chloride [Moles/Vol] 108 mmol/L High 98-107 [facility] Comment on above: Performed By: #### L 100.0100, L500.4050, L500.4100 ####[facility] [address] [place], [address] CO2 [Moles/Vol] 29.0 mmol/L Normal 21.0-32.0 [facility] Comment on above: Performed By: #### L 100.0100, L500.4050, L500.4100 ####[facility] [address] [place], [address] Creatinine [Mass/Vol] 0.94 mg/dL Normal 0.70-1.30 [facility] Comment on above: Result Comment: The validity of the calculated GFR GFRAA in patients over 70 years has not been determined. Clinical correlation is essential. Performed By: #### L 100.0100, L500.4050, L500.4100 ####[facility] [address] [place], [address] EST GFR - AA 101 mL/min Normal >60 [facility] Comment on above: Result Comment: Afri can Filipino GFR Calc Performed By: #### L 100.0100, L500.4050, L500.4100 ####[facility] [address] [place], [address] GAP 5 Normal 5-15 [facility] Comment on above: Performed By: #### L 100.0100, L500.4050, L500.4100 ####[facility] [address] [place], [address] GFR/1.73 sq M.predicted among non-blacks MDRD (S/P/Bld) [Vol rate/Area] 84 mL/min/{1.73_m2} Normal >60 [facility] Comment on above: Result Comment: Non- GFR Calc Performed By: #### L 100.0100, L500.4050, L500.4100 ####[facility] [address] [place], [address] Globulin (S) [Mass/Vol] 3.6 g/dL Normal 2.2-4.2 [facility] Comment on above: Performed By: #### L 100.0100, L500.4050, L500.4100 ####[facility] [address] [place], [address] Glucose [Mass/Vol] 108 mg/dL High 74-106 [facility] Comment on above: Result Comment: Fast ing Glucose result from 100 to 125 mg/dL suggests IMPAIRED HOMEOSTASIS per A.D.A. criteria. Performed By: #### L 100.0100, L500.4050, L500.4100 ####[facility] [address] [place], [address] Potassium [Moles/Vol] 4.7 mmol/L Normal 3.5-5.1 [facility] Comment on above: Performed By: #### L 100.0100, L500.4050, L500.4100 ####[facility] [address] [place], [address] Sodium [Moles/Vol] 142 mmol/L Normal 136-145 [facility] Comment on above: Performed By: #### L 100.0100, L500.4050, L500.4100 ####[facility] [address] [place], [address] T PROT 7.7 g/dL Normal 6.4-8.2 [facility] Comment on above: Performed By: #### L 100.0100, L500.4050, L500.4100 ####[facility] [address] [place], [address] Urea nitrogen [Mass/Vol] 21 mg/dL High 7-18 [facility] Comment on above: Performed By: #### L 100.0100, L500.4050, L500.4100 ####[facility] [address] [place], [address] Lipid Profileon 07-09-2024 Cholesterol [Mass/Vol] 194 mg/dL Normal 200 [facility] Comment on above: Result Comment: <200 mg/dL Desirable 200-240 mg/dL Borderline >240 mg/dL High Risk Performed By: #### L 100.0100, L500.4050, L500.4100 ####[facility] [address] [place], [address] Cholesterol in HDL [Mass/Vol] 55 mg/dL Normal [facility] Comment on above: Result Comment: The drugs N-Acetylcysteine and Metamizole may falsely depress this assay. Reference Range HDL <40 mg/dL Low HDL Cholesterol HDL >or= 60 mg/dL High HDL Cholesterol Performed By: #### L 100.0100, L500.4050, L500.4100 ####[facility] [address] [place], [address] Cholesterol in LDL [Mass/Vol] 116 mg/dL Normal 0-130 [facility] Comment on above: Performed By: #### L 100.0100, L500.4050, L500.4100 ####[facility] [address] [place], [address] Cholesterol in VLDL [Mass/Vol] 23 mg/dL Normal 5-40 [facility] Comment on above: Performed By: #### L 100.0100, L500.4050, L500.4100 ####[facility] [address] [place], [address] Triglyceride [Mass/Vol] 116 mg/dL Normal [facility] Comment on above: Result Comment: The drugs N-Acetylcysteine and Metamizole may falsely depress this assay. Serum Triglycerides Reference Interval Normal <150 mg/dL Borderline high 150 - 199 mg/dL High 200 - 499 mg/dL Very High > or = 500 mg/dL Performed By: #### L 100.0100, L500.4050, L500.4100 ####[facility] [address] [place], [address] Internal Medicine Office Vis itodinh 07-07-2024 Internal Medicine Office Visit [facility] [address] [place] [address] [place] [address] OFFICE VISIT Date of Service: 07/09/24 MR#: [id number] Acct: [id number] Name: FRED MCKEON Rep #: [id number] : 1950 Provider: Dr. 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 Is patient in pain?: No Allergies No Known Allergies Allergy (Unverified 03/12/24 10:55) Medications ???Medication ???Instructions ???Recorded ???Confirmed ???Type VITAMIN K2 PO 1XD 02/15/22 07/09/24 History aspirin 81 mg tablet,delayed 81 mg PO DAILY 02/15/22 07/09/24 History release (Adult Low Dose Aspirin) cholecalciferol (vitamin D3) 125 125 mcg PO DAILY 02/15/22 07/09/24 History mcg (5,000 unit) tablet (Vitamin D3) magnesium oxide 400 mg PO DAILY 02/15/22 07/09/24 History zpjvyjdj-mrnqkyeq-a olic acid 400 tab PO 02/15/22 07/09/24 History mcg-vit K 20 mcg-lycop 300 mcg tablet (One-A-Day Men's Multivitamin) turmeric root extract 500 mg tablet mg PO BID 02/15/22 07/09/24 History handicap placard #1 ea 10/16/22 03/12/24 Rx sulindac 200 mg tablet See Rx Instructions .Route 02/24/24 07/09/24 Rx .COMPLEX #180 tabs omeprazole 20 mg capsule,delayed 20 mg PO DAILY #90 caps 03/12/24 07/09/24 Rx release nifedipine 60 mg tablet,extended 60 mg PO DAILY #90 tabs 04/20/24 07/09/24 Rx release ramipril 10 mg capsule 10 mg PO DAILY #90 caps 04/20/24 07/09/24 Rx Have you fallen in the past year?: Yes (02/2024) Nurse's Note: Was going to call last week about a pulled groin muscle on the right side, but the patient states the the muscle pain has gotten better. PFSH Medical History Cubital tunnel syndrome, bilateral Bilateral carpal tunnel syndrome Cervical radiculopathy Hx of fracture of arm History of kidney stones Hx of primary hypertension Hx of fracture History of back pain Surgical History Hx of repair of left rotator cuff History of back surgery Family History Mother Arthritis Hypertension High cholesterol Osteoporosis CVA (cerebral vascular accident) Father Arthritis Mesothelioma Hypertension High cholesterol Grandfather Colon cancer Social History (Updated 07/09/24 @ 11:[address] 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 He is due for some routine blood work.??? He is due for his colonoscopy and reports they will call.??? He would like a flu shot today.??? He does not smoke, and does not need any refills.??? He reports he is eating healthy and reports his activity level had been good. He was limited in the last couple of weeks, however, due to a groin strain. That is improving, however. His balance, foot weakness and hand pain were helping a lot with using the machine, but feels like that also slowed down in the last few weeks. He hasn't had any falls since he was last seen. He does continue to have some numbness in his hands bilaterally but feels there has been a slow, gradual improvement. The patient takes sulindac for his arthritis. He states he can notice a difference if he doesn't take it. He reports generalized joint pains. He denies any significant pain currently. He does check his blood pressure at home stating it is averaging in the 130s/80s range.??? He is taking his medications as prescribed without any problems.??? He reports he does monitor his salt intake reporting he is doing better with that. The patient continues to do well with the omeprazole. He denies any symptoms of GERD at this time. He reports he is more aware of when he is eating and doesn't cough or choke as much. He has no other questions or concerns at this time. ROS Const Constitutional: Positive for weakness (due to groin injury, improving) and weight change (weight gai (more content not included)... Normal [facility] .Auto Diffon 10-23-2023 Basophil, Absolute 0.0 10 3/mcL Normal 0.0-0.3 [facility] ([place]) Comment on above: Performed By: #### U A, UAMIC #### [address] [address] Basophils/100 WBC (Bld) 0.1 % Normal 0.0-2.5 [facility] ([place]) Comment on above: Performed By: #### U A, UAMIC #### [address] [address] Eosinophil, Absolute 0.0 10 3/mcL Normal 0.0-0.7 [facility] ([place]) Comment on above: Performed By: #### U A, UAMIC #### [address] [address] Eosinophils/100 WBC (Bld) 0.0 % Normal 0.0-6.0 [facility] ([place]) Comment on above: Performed By: #### U A, UAMIC #### [address] [address] Lymphocyte, Absolute 1.3 10 3/mcL Normal 0.9-4.3 [facility] ([place] Comment on above: Performed By: #### U A, UAMIC #### [address] [address] Lymphocytes/100 WBC (Bld) 9.8 % Low 20.0-40.0 [facility] ([place]) Comment on above: Performed By: #### U A, UAMIC #### [address] [address] Monocyte, Absolute 0.8 10 3/mcL Normal 0.1-1.4 [facility] ([place]) Comment on above: Performed By: #### U A, UAMIC #### [address] [address] Monocytes/100 WBC (Bld) 6.1 % Normal 2.0-13.0 [facility] ([place]) Comment on above: Performed By: #### U A, UAMIC #### [address] [address] Neutrophils/100 WBC (Bld) 84.0 % High 50.0-75.0 [facility] ([place]) Comment on above: Performed By: #### U A, UAMIC #### [address] [address] .GFRon 10-23-2023 GFR >60 Normal [facility] ([place]) Comment on above: Result Comment: GFR Population mean for , Non- Americans Ages 20-29 = 116 mL/min/1.73 sq.m. Ages 30-39 = 107 mL/min/1.73 sq.m. Ages 40-49 = 99 mL/min/1.73 sq.m. Ages 50-59 = 93 mL/min/1.73 sq.m. Ages 60-69 = 85 mL/min/1.73 sq.m. Ages 70+ = 75 mL/min/1.73 sq.m. Chronic Kidney Disease: Less than 60 mL/min/1.73 square meters End Stage Renal Disease: Less than 15 mL/min/1.73 square meters Performed By: #### U A, UAMIC #### [place] [address] GFR Non- >60 Normal [facility] ([place]) Comment on above: Result Comment: GFR Population mean for , Non- Americans Ages 20-29 = 116 mL/min/1.73 sq.m. Ages 30-39 = 107 mL/min/1.73 sq.m. Ages 40-49 = 99 mL/min/1.73 sq.m. Ages 50-59 = 93 mL/min/1.73 sq.m. Ages 60-69 = 85 mL/min/1.73 sq.m. Ages 70+ = 75 mL/min/1.73 sq.m. Chronic Kidney Disease: Less than 60 mL/min/1.73 square meters End Stage Renal Disease: Less than 15 mL/min/1.73 square meters Performed By: #### U A UAMIC #### [address] [address] .NEUABSon 10-23-2023 Neutrophil, Absolute 10.7 10 3/mcL High 2.3-8.1 A [facility] ([place]) Comment on above: Performed By: #### U A, UAMIC #### [address] [address] BMPon 10-23-2023 BUN/Creatinine Ratio 27.0 ratio High 10.0-22.0 [facility] ([place]) Comment on above: Performed By: #### U Natalya UAMIC #### [address] [address] Calcium [Mass/Vol] 9.2 mg/dL Normal 8.7-10.4 Counts include 234 beds at the [facility] ([place]) Comment on above: Performed By: #### U A UAMIC #### [address] [address] Chloride [Moles/Vol] 105 mmol/L Normal 98-110 [facility] ([place]) Comment on above: Performed By: #### U Natalya UAMIC #### [address] [address] CO2 [Moles/Vol] 25 mmol/L Normal 22-32 [facility] ([place]) Comment on above: Performed By: #### U Natalya UAMIC #### [address] [address] Creatinine [Mass/Vol] 0.74 mg/dL Normal 0.60-1.40 [facility] ([place]) Comment on above: Performed By: #### Cristy Hoang UAMIC #### [address] [address] Electrolyte Balance 7.0 mEq/L Normal 4.0-15.0 [facility] ([place]) Comment on above: Performed By: #### U A UAMIC #### [address] [address] Glucose [Mass/Vol] 161 mg/dL High 82-115 Counts include 234 beds at the [facility] ([place]) Comment on above: Performed By: #### U A UAMIC #### [address] [address] Potassium [Moles/Vol] 4.3 mmol/L Normal 3.5-5.0 [facility] [place] Comment on above: Performed By: #### U A UAMIC #### [address] [address] Sodium [Moles/Vol] 137 mmol/L Normal 136-145 Counts include 234 beds at the [facility] ([place]) Comment on above: Performed By: #### Cristy Hoang UAMIC #### [place] [address] Urea nitrogen [Mass/Vol] 20.0 mg/dL Normal 8.0-22.0 [facility] ([place]) Comment on above: Performed By: #### Cristy Hoang UAMIC #### [place] [address] CBCon 10-23-2023 Erythrocyte distribution width (RBC) [Ratio] 13.4 % Normal 11.5-15.5 [facility] ([place]) Comment on above: Performed By: #### Cristy Hoang UAMIC #### [place] [address] Hematocrit (Bld) [Volume fraction] 43.2 % Normal 40.0-52.0 [facility] ([place]) Comment on above: Performed By: #### Cristy Hoang UAMIC #### [place] [address] Hgb 14.8 G/dL Normal 13.0-17.5 [facility] ([place]) Comment on above: Performed By: #### JILLIAN GanMIC #### [place] [address] MCH (RBC) [Entitic mass] 34.1 pg High 27.0-33.0 [facility] ([place]) Comment on above: Performed By: #### Cristy Hoang UAMIC #### [place] [address] MCHC 34.2 G/dL Normal 32.0-36.0 [facility] ([place]) Comment on above: Performed By: #### Cristy Hoang UAMIC #### [place] [id number] MCV (RBC) [Entitic vol] 99.7 fL Normal 81.0-100.0 [facility] ([place]) Comment on above: Performed By: #### Cristy Hoang UAMIC #### [place] [address] Platelet 268 10 3/mcL Normal 150-450 [facility] ([place]) Comment on above: Performed By: #### U A UAMIC #### [address] [address] Platelet mean volume (Bld) [Entitic vol] 7.4 fL Normal 6.4-10.5 [facility] ([place]) Comment on above: Performed By: #### U A, UAMIC #### [address] [address] RBC 4.34 10 6/mcL Low 4.50-6.00 [facility] ([place]) Comment on above: Performed By: #### U Natalya, UAMIC #### [address] [address] WBC 12.8 10 3/mcL High 4.5-10.8 [facility] ([place]) Comment on above: Performed By: #### U Natalya, UAMIC #### [address] [address] LABORATORYOrdered By: SYSTEM SYSTEM on 10-23-2023 Basophils (Bld) [#/Vol] 0.0 103/mcL Normal 0.0 - 0.3 10^3/mcL Workflow SS Basophils/100 WBC (Bld) 0.1 % Normal 0.0 - 2.5 % Workflow SS Calcium [Mass/Vol] 9.2 mg/dL Normal 8.7 - 10. 4 mg/dL ADM SS Chloride [Moles/Vol] 105 mmol/L Normal 98 - 11 0 mEq/L ADM SS CO2 [Moles/Vol] 25 mmol/L Normal 22 - 32 mEq/L ADM SS Creatinine [Mass/Vol] 0.74 mg/dL Normal 0.60 - 1.40 mg/dL ADM SS Electrolyte Balance 7.0 mEq/L Normal 4.0 - 15 .0 mEq/L ADM SS Eosinophils (Bld) [#/Vol] 0.0 103/mcL Normal 0.0 - 0.7 10^3/mcL Workflow SS Eosinophils/100 WBC (Bld) 0.0 % Normal 0.0 - 6.0 % Workflow SS Erythrocyte distribution width (RBC) [Ratio] 13.4 % Normal 11.5 - 15.5 % Workflow SS GFR/1.73 sq M.predicted among blacks MDRD (S/P/Bld) [Vol rate/Area] ml/min/1.73sqm Invalid Interpretation Code [facility]coma Chemistry S Comment on above: Interpretive Data: GFR Population mean for , Non- Americans Ages 20-29 = 116 mL/min/1.73 sq.m. Ages 30-39 = 107 mL/min/1.73 sq.m. Ages 40-49 = 99 mL/min/1.73 sq.m. Ages 50-59 = 93 mL/min/1.73 sq.m. Ages 60-69 = 85 mL/min/1.73 sq.m. Ages 70+ = 75 mL/min/1.73 sq.m. Chronic Kidney Disease: Less than 60 mL/min/1.73 square meters End Stage Renal Disease: Less than 15 mL/min/1.73 square meters GFR/1.73 sq M.predicted among non-blacks MDRD (S/P/Bld) [Vol rate/Area] ml/min/1.73sqm Invalid Interpretation Code [facility]coma Chemistry S Comment on above: Interpretive Data: GFR Population mean for , Non- Americans Ages 20-29 = 116 mL/min/1.73 sq.m. Ages 30-39 = 107 mL/min/1.73 sq.m. Ages 40-49 = 99 mL/min/1.73 sq.m. Ages 50-59 = 93 mL/min/1.73 sq.m. Ages 60-69 = 85 mL/min/1.73 sq.m. Ages 70+ = 75 mL/min/1.73 sq.m. Chronic Kidney Disease: Less than 60 mL/min/1.73 square meters End Stage Renal Disease: Less than 15 mL/min/1.73 square meters Glucose [Mass/Vol] 161 mg/dL High 82 - 115 mg/dL ADM SS Hematocrit (Bld) [Volume fraction] 43.2 % Normal 40.0 - 52.0 % Workflow SS Hemoglobin (Bld) [Mass/Vol] 14.8 G/dL Normal 13.0 - 17.5 G/dL Workflow SS Lymphocytes (Bld) [#/Vol] 1.3 103/mcL Normal 0.9 - 4.3 10^3/mcL AH Workflow SS Lymphocytes/100 WBC (Bld) 9.8 % Low 20.0 - 40.0 % AH Workflow SS MCH (RBC) [Entitic mass] 34.1 pg High 27.0 - 33.0 pg AH Workflow SS MCHC 34.2 G/dL Normal 32.0 - 36.0 G/dL AH Workflow SS MCV (RBC) [Entitic vol] 99.7 fL Normal 81.0 - 100.0 fL AH Workflow SS Monocytes (Bld) [#/Vol] 0.8 103/mcL Normal 0.1 - 1.4 10^3/mcL AH Workflow SS Monocytes/100 WBC (Bld) 6.1 % Normal 2.0 - 13.0 % AH Workflow SS Neutrophils (Bld) [#/Vol] 10.7 103/mcL High 2.3 - 8.1 10^3/mcL AH Workflow SS Neutrophils/100 WBC (Bld) 84.0 % High 50.0 - 75.0 % AH Workflow SS Platelet mean volume (Bld) [Entitic vol] 7.4 fL Normal 6.4 - 10.5 fL AH Workflow SS Platelets (Bld) [#/Vol] 268 103/mcL Normal 150 - 450 10^3/mcL AH Workflow SS Potassium [Moles/Vol] 4.3 mmol/L Normal 3.5 - 5.0 mEq/L AH ADM SS RBC (Bld) [#/Vol] 4.34 106/mcL Low 4.50 - 6.0 0 10^6/mcL AH Workflow SS Sodium [Moles/Vol] 137 mmol/L Normal 136 - 145 mEq/L AH ADM SS Urea nitrogen [Mass/Vol] 20.0 mg/dL Normal 8.0 - 22.0 mg/dL AH ADM SS Urea nitrogen/Creatinine [Mass ratio] 27.0 ratio High 10.0 - 22.0 ratio AH ADM SS WBC (Bld) [#/Vol] 12.8 103/mcL High 4.5 - 10.8 10^3/mcL AH Workflow SS LABORATORYOrdered By: Martha Loo on 10-22-2023 Appearance (U) Clear (10/22/23 9:43 PM) Normal Clear Auto Urine SS Bilirubin Ql (U) Negative (10/22/23 9:43 PM) Normal Neg-Trace AH Auto Urine SS Color (U) Yellow (10/22/23 9:43 PM) Normal AH Auto Urine SS Glucose Test strip (U) [Mass/Vol] Negative Normal Negative AH Auto Urine SS Hemoglobin Auto test strip (U) [Mass/Vol] Large *ABN* (10/22/23 9:43 PM) Invalid Interpretation Code Neg-Trace AH Auto Urine SS Ketones Ql (U) Negative Normal Neg-Trace Auto Ur ine SS UA Leuk Est Small *ABN* (10/22/23 9:43 PM) Invalid Interpretation Code Negative AH Auto Urine SS UA Nitrite Negative (10/22/23 9:43 PM) Normal Negative AH Auto Urine SS UA pH 5.5 (10/22/23 9:43 PM) Normal 5.0 - 8.0 AH Auto Urine SS UA Protein Trace mg/dL Normal Negative AH Auto Urine SS UA RBC 25-50 /HPF Invalid Interpretation Code 0-2 AH Auto Urine SS UA Spec Grav 1.020 (10/22/23 9:43 PM) Normal 1.006-1.029 AH Auto Urine SS UA Specimen Type Mancuso Catheter (10/22/23 9:43 PM) Normal AH Auto Urine SS UA Squam Epithelial 0-2 /HPF Normal 0-20 AH Au to Urine SS UA Uric Ac Crystals 1+ /HPF Normal AH Au to Urine SS UA Urobilinogen 0.2 E.U./dL Normal 0.2-1.0 Auto Urine SS WBC LM.HPF (Urine sed) [#/Area] 0-2 /HPF Normal 0-5 Auto Urine SS UAon 10-22-2023 Color (U) Yellow Normal [facility] ([place]) Comment on above: Performed By: #### U A UAMIC #### [address] [address] Glucose (U) [Mass/Vol] Negative Normal Negative [facility] ([place]) Comment on above: Performed By: #### U A, UAMIC #### [address] [address] Ketones Ql (U) Negative Normal Neg-Trace [facility] ([place]) Comment on above: Performed By: #### U A UAMIC #### [address] [address] UA Appear Clear Normal Clear [facility] ([place]) Comment on above: Performed By: #### U A, UAMIC #### [place] [address] UA Blood Large Abnormal Neg-Trace [facility] ([place]) Comment on above: Performed By: #### U A, UAMIC #### [place] [address] UA Leuk Est Small Abnormal Negative [facility] ([place]) Comment on above: Performed By: #### U A, UAMIC #### [place] [address] UA Nitrite Negative Normal Negative [facility] ([place]) Comment on above: Performed By: #### U A, UAMIC #### [place] [address] UA pH 5.5 Normal 5.0 - 8.0 [facility] ([place]) Comment on above: Performed By: #### U A, UAMIC #### [place] [address] UA Protein Trace Normal Negative [facility] ([place]) Comment on above: Performed By: #### U A, UAMIC #### [place] [address] UA Spec Grav 1.020 Normal 1.006-1.029 [facility] ([place]) Comment on above: Performed By: #### U A, UAMIC #### [place] [address] UA Specimen Type Mancuso Catheter Normal [facility] ([place]) Comment on above: Performed By: #### U A, UAMIC #### [place] [address] UA Urobilinogen 0.2 E.U./dL Normal 0.2-1.0 [facility] ([place]) Comment on above: Performed By: #### U A, UAMIC #### [place] [address] Urobilinogen (U) [Mass/Vol] Negative Normal Neg-Trace [facility] ([place]) Comment on above: Performed By: #### U A, UAMIC #### [place] [id number] UAMICon 10-22-2023 UA RBC 25-50 Abnormal 0-2 [facility] ([place]) Comment on above: Performed By: #### U A, UAMIC #### [place] [address] UA Squam Epithelial 0-2 Normal 0-20 [facility] ([place]) Comment on above: Performed By: #### U A, UAMIC #### [place] [address] UA Uric Ac Crystals 1+ /hpf Normal [facility] ([place]) Comment on above: Performed By: #### U A, UAMIC #### [place] [address] UA WBC 0-2 Normal 0-5 [facility] ([place]) Comment on above: Performed By: #### U A, UAMIC #### [place] [address] XR FLUORO > 2 HRS TECH TIMEo n 10-22-2023 XR FLUORO > 2 HRS TECH TIME ORIGINAL EXAMINATION: SPOT FLUOROSCOPIC IMAGES 10/22/2023 5:36 pm TECHNIQUE: Fluoroscopy was provided by the radiology department for procedure. Radiologist was not present during examination. FLUOROSCOPY DOSE AND TYPE: Radiation Exposure Index: 0.1973 mGy, Fluoro time: 1.3 seconds Images: 1 COMPARISON: None HISTORY: ORDERING SYSTEM PROVIDED HISTORY: Reason for Exam: neck pain, acdf c4-7 Intraprocedural imaging. FINDINGS: Spot intraoperative images are obtained demonstrating a lateral view of the cervical spine with a metallic linear object marking the C3-C4 disc space.. IMPRESSION: Intraprocedural fluoroscopic spot images as above. See separate procedure report for more information. I have personally reviewed the images of this examination and agree with the resident's findings and interpretation. Interpreted by: Junaid Martínez Preliminary Report By: Fay Barron Electronically signed By Junaid Martínez Dictated Date: 10/22/2023 6:58:12 PM Prelim Date: 10/22/2023 7:01:19 PM Sign Date: 10/22/2023 7:03:48 PM Ordering Provider: THO Suarez [facility] ([place]) .Auto Diffon 10-08-2023 Basophil, Absolute 0.1 10 3/mcL Normal 0.0-0.3 [facility]) Comment on above: Performed By: #### P RO, CBC, ADIFF, ANEU, BMP, TRF, PRALB, GFR #### [place] [address] Eosinophil, Absolute 0.3 10 3/mcL Normal 0.0-0.7 [facility] ([place]) Comment on above: Performed By: #### P RO, CBC, ADIFF, ANEU, BMP, TRF, PRALB, GFR #### [place] [address] Lymphocyte, Absolute 1.8 10 3/mcL Normal 0.9-4.3 [facility]) Comment on above: Performed By: #### P RO, CBC, ADIFF, ANEU, BMP, TRF, PRALB, GFR #### [place] [address] Monocyte, Absolute 0.5 10 3/mcL Normal 0.1-1.4 [facility]) Comment on above: Performed By: #### P RO, CBC, ADIFF, ANEU, BMP, TRF, PRALB, GFR #### [place] [address] .Auto DiffOrdered By: SYSTEM SYSTEM on 10-08-2023 Basophils/100 WBC (Bld) 0.7 % Normal 0.0-2.5 AH Workflow SS Comment on above: Performed By: #### P RO, CBC, ADIFF, ANEU, BMP, TRF, PRALB, GFR #### [place] [address] Eosinophils/100 WBC (Bld) 3.6 % Normal 0.0-6.0 AH Workflow SS Comment on above: Performed By: #### P RO, CBC, ADIFF, ANEU, BMP, TRF, PRALB, GFR #### [facility] [address] [place], [place] [address] Lymphocytes/100 WBC (Bld) 23.6 % Normal 20.0-40.0 AH Workflow SS Comment on above: Performed By: #### P RO, CBC, ADIFF, ANEU, BMP, TRF, PRALB, GFR #### [address] [address] Monocytes/100 WBC (Bld) 7.2 % Normal 2.0-13.0 AH Workflow SS Comment on above: Performed By: #### P RO, CBC, ADIFF, ANEU, BMP, TRF, PRALB, GFR #### [address] [address] Neutrophils/100 WBC (Bld) 64.9 % Normal 50.0-75.0 AH Workflow SS Comment on above: Performed By: #### P RO, CBC, ADIFF, ANEU, BMP, TRF, PRALB, GFR #### [address] [address] .GFRon 10-08-2023 GFR Non- >60 Normal [facility] ([place]) Comment on above: Result Comment: GFR Population mean for , Non- Americans Ages 20-29 = 116 mL/min/1.73 sq.m. Ages 30-39 = 107 mL/min/1.73 sq.m. Ages 40-49 = 99 mL/min/1.73 sq.m. Ages 50-59 = 93 mL/min/1.73 sq.m. Ages 60-69 = 85 mL/min/1.73 sq.m. Ages 70+ = 75 mL/min/1.73 sq.m. Chronic Kidney Disease: Less than 60 mL/min/1.73 square meters End Stage Renal Disease: Less than 15 mL/min/1.73 square meters Performed By: #### P RO, CBC, ADIFF, ANEU, BMP, TRF, PRALB, GFR #### [address] [address] GFR >60 Normal [facility] ([place]) Comment on above: Result Comment: GFR Population mean for , Non- Americans Ages 20-29 = 116 mL/min/1.73 sq.m. Ages 30-39 = 107 mL/min/1.73 sq.m. Ages 40-49 = 99 mL/min/1.73 sq.m. Ages 50-59 = 93 mL/min/1.73 sq.m. Ages 60-69 = 85 mL/min/1.73 sq.m. Ages 70+ = 75 mL/min/1.73 sq.m. Chronic Kidney Disease: Less than 60 mL/min/1.73 square meters End Stage Renal Disease: Less than 15 mL/min/1.73 square meters Performed By: #### P RO, CBC, ADIFF, ANEU, BMP, TRF, PRALB, GFR #### [address] [address] .NEUABSon 10-08-2023 Neutrophil, Absolute 5.0 10 3/mcL Normal 2.3-8.1 [facility] [place]) Comment on above: Performed By: #### P RO, CBC, ADIFF, ANEU, BMP, TRF, PRALB, GFR #### [address] [address] APTTOrdered By: Jazmyne bender on 10-08-2023 aPTT Coag (Bld) [Time] 30.3 s Normal 25.0-35.0 AH HemoHub SS Comment on above: Interpretive Data: F or Heparin anticoagulation therapy, the recommended therapeutic range is: 54-77 seconds (APTT Correlation with Anti-Xa therapeutic range of 0.3-0.7 units/ml). PLEASE REFERENCE THE PHARMACY PROTOCOL FOR DOSING. Result Comment: For Heparin anticoagulation therapy, the recommended therapeutic range is: 54-77 seconds (APTT Correlation with Anti-Xa therapeutic range of 0.3-0.7 units/ml). PLEASE REFERENCE THE PHARMACY PROTOCOL FOR DOSING. Performed By: #### P RO, CBC, ADIFF, ANEU, BMP, TRF, PRALB, GFR #### [address] [address] APTTon 10-08-2023 Heparin dose (APTT) Unknown Normal [facility] ([place]) Comment on above: Performed By: #### P RO, CBC, ADIFF, ANEU, BMP, TRF, PRALB, GFR #### [address] [address] BMPon 10-08-2023 BUN/Creatinine Ratio 24.5 ratio High 10.0-22.0 [facility] ([place]) Comment on above: Performed By: #### P RO, CBC, ADIFF, ANEU, BMP, TRF, PRALB, GFR #### [address] [address] BMPOrdered By: SYSTEM SYSTEM on 10-08-2023 Calcium [Mass/Vol] 9.6 mg/dL Normal 8.7-10.4 AH ADM SS Comment on above: Performed By: #### P RO, CBC, ADIFF, ANEU, BMP, TRF, PRALB, GFR #### [address] [address] Chloride [Moles/Vol] 109 mmol/L Normal 98-110 AH A DM SS Comment on above: Performed By: #### P RO, CBC, ADIFF, ANEU, BMP, TRF, PRALB, GFR #### [place] [id number] CO2 [Moles/Vol] 27 mmol/L Normal 22-32 AH ADM SS Comment on above: Performed By: #### P RO, CBC, ADIFF, ANEU, BMP, TRF, PRALB, GFR #### [address] [address] Creatinine [Mass/Vol] 0.94 mg/dL Normal 0.60-1.40 AH ADM SS Comment on above: Performed By: #### P RO, CBC, ADIFF, ANEU, BMP, TRF, PRALB, GFR #### [address] [address] Electrolyte Balance 5.0 mEq/L Normal 4.0-15.0 AH AD M SS Comment on above: Performed By: #### P RO, CBC, ADIFF, ANEU, BMP, TRF, PRALB, GFR #### [address] [address] Glucose [Mass/Vol] 100 mg/dL Normal 82-115 AH ADM SS Comment on above: Performed By: #### P RO, CBC, ADIFF, ANEU, BMP, TRF, PRALB, GFR #### [place] [id number] Potassium [Moles/Vol] 4.8 mmol/L Normal 3.5-5.0 AH ADM SS Comment on above: Performed By: #### P RO, CBC, ADIFF, ANEU, BMP, TRF, PRALB, GFR #### [place] [id number] Sodium [Moles/Vol] 141 mmol/L Normal 136-145 AH ADM SS Comment on above: Performed By: #### P RO, CBC, ADIFF, ANEU, BMP, TRF, PRALB, GFR #### [place] [id number] Urea nitrogen [Mass/Vol] 23.0 mg/dL High 8.0-22.0 AH ADM SS Comment on above: Performed By: #### P RO, CBC, ADIFF, ANEU, BMP, TRF, PRALB, GFR #### [place] [address] CBCOrdered By: SYSTEM SYSTEM on 10-08-2023 Erythrocyte distribution width (RBC) [Ratio] 13.5 % Normal 11.5-15.5 AH Workflow SS Comment on above: Performed By: #### P RO, CBC, ADIFF, ANEU, BMP, TRF, PRALB, GFR #### [place] [id number] Hematocrit (Bld) [Volume fraction] 45.5 % Normal 40.0-52.0 AH Workflow SS Comment on above: Performed By: #### P RO, CBC, ADIFF, ANEU, BMP, TRF, PRALB, GFR #### [place] [id number] MCH (RBC) [Entitic mass] 34.5 pg High 27.0-33.0 AH Workflow SS Comment on above: Performed By: #### P RO, CBC, ADIFF, ANEU, BMP, TRF, PRALB, GFR #### [place] [id number] MCHC 34.4 G/dL Normal 32.0-36.0 AH Workflow SS Comment on above: Performed By: #### P RO, CBC, ADIFF, ANEU, BMP, TRF, PRALB, GFR #### [place] [address] MCV (RBC) [Entitic vol] 100.4 fL High 81.0-100.0 AH Workflow SS Comment on above: Performed By: #### P RO, CBC, ADIFF, ANEU, BMP, TRF, PRALB, GFR #### [place] [address] Platelet mean volume (Bld) [Entitic vol] 7.5 fL Normal 6.4-10.5 AH Workflow SS Comment on above: Performed By: #### P RO, CBC, ADIFF, ANEU, BMP, TRF, PRALB, GFR #### [place] [address] CBCon 10-08-2023 Hgb 15.7 G/dL Normal 13.0-17.5 [facility] ([place]) Comment on above: Performed By: #### P RO, CBC, ADIFF, ANEU, BMP, TRF, PRALB, GFR #### [place] [address] Platelet 270 10 3/mcL Normal 150-450 [facility] ([place]) Comment on above: Performed By: #### P RO, CBC, ADIFF, ANEU, BMP, TRF, PRALB, GFR #### [place] [address] RBC 4.54 10 6/mcL Normal 4.50-6.00 [facility] ([place]) Comment on above: Performed By: #### P RO, CBC, ADIFF, ANEU, BMP, TRF, PRALB, GFR #### [place] [address] WBC 7.6 10 3/mcL Normal 4.5-10.8 [facility] ([place]) Comment on above: Performed By: #### P RO, CBC, ADIFF, ANEU, BMP, TRF, PRALB, GFR #### [address] [place] [address] LABORATORYOrdered By: SYSTEM SYSTEM on 10-08-2023 Basophils (Bld) [#/Vol] 0.1 103/mcL Normal 0.0 - 0.3 10^3/mcL Workflow SS Eosinophils (Bld) [#/Vol] 0.3 103/mcL Normal 0.0 - 0.7 10^3/mcL Workflow SS GFR/1.73 sq M.predicted among blacks MDRD (S/P/Bld) [Vol rate/Area] ml/min/1.73sqm Invalid Interpretation Code [facility] Chemistry S Comment on above: Interpretive Data: GFR Population mean for , Non- Americans Ages 20-29 = 116 mL/min/1.73 sq.m. Ages 30-39 = 107 mL/min/1.73 sq.m. Ages 40-49 = 99 mL/min/1.73 sq.m. Ages 50-59 = 93 mL/min/1.73 sq.m. Ages 60-69 = 85 mL/min/1.73 sq.m. Ages 70+ = 75 mL/min/1.73 sq.m. Chronic Kidney Disease: Less than 60 mL/min/1.73 square meters End Stage Renal Disease: Less than 15 mL/min/1.73 square meters GFR/1.73 sq M.predicted among non-blacks MDRD (S/P/Bld) [Vol rate/Area] ml/min/1.73sqm Invalid Interpretation Code [facility] Chemistry S Comment on above: Interpretive Data: GFR Population mean for , Non- Americans Ages 20-29 = 116 mL/min/1.73 sq.m. Ages 30-39 = 107 mL/min/1.73 sq.m. Ages 40-49 = 99 mL/min/1.73 sq.m. Ages 50-59 = 93 mL/min/1.73 sq.m. Ages 60-69 = 85 mL/min/1.73 sq.m. Ages 70+ = 75 mL/min/1.73 sq.m. Chronic Kidney Disease: Less than 60 mL/min/1.73 square meters End Stage Renal Disease: Less than 15 mL/min/1.73 square meters Hemoglobin (Bld) [Mass/Vol] 15.7 G/dL Normal 13.0 - 17.5 G/dL AH Workflow SS Lymphocytes (Bld) [#/Vol] 1.8 103/mcL Normal 0.9 - 4.3 10^3/mcL AH Workflow SS Monocytes (Bld) [#/Vol] 0.5 103/mcL Normal 0.1 - 1.4 10^3/mcL AH Workflow SS Neutrophils (Bld) [#/Vol] 5.0 103/mcL Normal 2.3 - 8.1 10^3/mcL AH Workflow SS Platelets (Bld) [#/Vol] 270 103/mcL Normal 150 - 450 10^3/mcL AH Workflow SS RBC (Bld) [#/Vol] 4.54 106/mcL Normal 4.50 - 6.0 0 10^6/mcL AH Workflow SS Urea nitrogen/Creatinine [Mass ratio] 24.5 ratio High 10.0 - 22.0 ratio AH ADM SS WBC (Bld) [#/Vol] 7.6 103/mcL Normal 4.5 - 10.8 10^3/mcL AH Workflow SS LABORATORYOrdered By: Jazmyne Rothman on 10-08-2023 Heparin dose (APTT) Unknown (10/08/23 12:00 PM) Normal Coagulation S PT International Ratio 1.0 ratio Invalid Interpretation Code AH HemoHub SS Comment on above: Interpretive Data: [employer] (CHEST, 1992, [id number]) recommended therapeutic range for oral anticoagulant therapy is: LOW RISK: Prophylaxis of venous thrombosis INR: 2.0-3.0 Treatment of pulmonary embolism 2.0-3.0 Prevention of systemic embolism 2.0-3.0 HIGH RISK: Mechanical prosthetic valves 2.5-3.5 LABORATORYOrdered By: Whitney Mott on 10-08-2023 MRSA (PCR) Not Detected 1 (10/08/23 12:00 PM) Normal AH Auto Viro/Sero SS Comment on above: Result Comment: [place] [id number] MRSA PCR Int MRSA DNA not detected by Real-Time Polymerase Chain Reaction (PCR). A negative result may be due to intermittent colonization. Colonization may vary depending on patient treatment, patient status, or exposure to high-risk environments.As with all PCR based in vitro diagnostic tests, extremely low levels of target below the limit of detection of the assay may be detected, but results may not be reproducible. Invalid Interpretation Code AH Auto Viro/Sero SS MRSAPCRon 10-08-2023 MRSA (PCR) Not detected Normal Not Detected [facility] ([place]) Comment on above: Result Comment: [place] s [id number] Performed By: #### U AJILLIANMIC #### [place] [address] MRSA PCR Int Normal [facility] ([place]) Comment on above: Result Comment: MRSA DNA not detected by Real-Time Polymerase Chain Reaction (PCR). A negative result may be due to intermittent colonization. Colonization may vary depending on patient treatment, patient status, or exposure to high-risk environments. As with all PCR based in vitro diagnostic tests, extremely low levels of target below the limit of detection of the assay may be detected, but results may not be reproducible. See Below Performed By: #### U AJILLIANMIC #### [place] [address] PRALBOrdered By: SYSTEM SYST EM on 10-08-2023 Prealbumin [Mass/Vol] 31.2 mg/dL Normal 10.0-40.0 ADM SS Comment on above: Interpretive Data: * *Note - New Reference Range in effect 20 Result Comment: No te - New Reference Range in effect 20 Performed By: #### P RO, CBC, ADIFF, ANEU, BMP, TRF, PRALB, GFR #### [place] [address] PROon 10-08-2023 INR Coag (PPP) [Relative time] 1.0 {INR} Normal [facility] ([place]) Comment on above: Result Comment: [employer] (CHEST, 1992, [id number]) recommended therapeutic range for oral anticoagulant therapy is: LOW RISK: Prophylaxis of venous thrombosis INR: 2.0-3.0 Treatment of pulmonary embolism 2.0-3.0 Prevention of systemic embolism 2.0-3.0 HIGH RISK: Mechanical prosthetic valves 2.5-3.5 Performed By: #### U A, UAMIC #### [place] [address] PROOrdered By: Jazmyne Shah ist on 10-08-2023 PT Coag (PPP) [Time] 11.1 s Normal 9.0-14.2 AH H [facility] SS Comment on above: Interpretive Data: E ffective 03/09/08, Protime results may be affected by some antibiotics (i.e. Ciprofloxacin, Azithromycin, Bactrim) which may potentiate the action of oral anticoagulants, with further increases in Protime/INR. Result Comment: Effe ctive 03/09/08, Protime results may be affected by some antibiotics (i.e. Ciprofloxacin, Azithromycin, Bactrim) which may potentiate the action of oral anticoagulants, with further increases in Protime/INR. Performed By: #### U A, UAMIC #### [place] [id number] TRFOrdered By: SYSTEM SYSTEM on 10-08-2023 Transferrin [Mass/Vol] 240 mg/dL Normal 202-336 AH ADM SS Comment on above: Performed By: #### P RO, CBC, ADIFF, ANEU, BMP, TRF, PRALB, GFR #### [place] [id number] Basophil percentageOrdered B y: Blu Sebastian on 07-16-2023 Creatinine [Mass/Vol] 1.3 mg/dL 0.70-1.30 [facility] - Chemistry and C hemistry - challengeOrdered By: Blu Sebastian on 07-16-2023 GFR/1.73 sq M.predicted among non-blacks MDRD (S/P/Bld) [Vol rate/Area] 56.0000 mL/min/{1.73_m2} >60 [facility] Serum or plasma folate measu rement (mass/volume)Ordered By: Hyacinth Bran on 04-12-2023 Folate [Mass/Vol] 19.20 ng/mL 3.1-55.4 [facility] Absolute lymphocyte countOrd ered By: Hyacinth Bran on 04-10-2023 Lymphocytes Auto (Unsp spec) [#/Vol] 1.83 10*3/uL 0.83-4.51 [facility] Basophil percentageOrdered B y: Hyacinth Bran on 04-10-2023 Basophils/100 WBC (Bld) 1.1 % 0-1 [facility] Bilirubin [Mass/Vol] 0.80 mg/dL 0.20-1.00 [facility] Comment on above: For patients on eltr ombopag therapy, use of Dimension [place] TBIL is not recommended. Chloride [Moles/Vol] 108 mmol/L 98-107 [facility] Cholesterol [Mass/Vol] 190 mg/dL <200 [facility] Comment on above: <200 mg/dL Desirable 200-240 mg/dL Borderline >240 mg/dL High Risk Eosinophils/100 WBC (Bld) 4.1 % 0-5 [facility] Glucose [Mass/Vol] 114 mg/dL 74-106 [facility] Comment on above: Fasting Glucose resu lt from 100 to 125 mg/dL suggests IMPAIRED HOMEOSTASIS per A.D.A. criteria. Neutrophils (Bld) [#/Vol] 3.9 10*3/uL 2.0-7.7 [facility] Neutrophils/100 WBC (Bld) 58.4 % 47-70 [facility] Potassium [Moles/Vol] 4.6 mmol/L 3.5-5.1 [facility] Protein [Mass/Vol] 7.6 g/dL 6.4-8.2 [facility] Sodium [Moles/Vol] 140 mmol/L 136-145 [facility] Triglyceride [Mass/Vol] 160 mg/dL <199 [facility] Comment on above: The drugs N-Acetylcy steine and Metamizole may falsely depress this assay.Serum Triglycerides Reference Interval Normal <150 mg/dL Borderline high 150 - 199 mg/dL High 200 - 499 mg/dL Very High > or = 500 mg/dL WBC (Bld) [#/Vol] 6.7 10*3/uL 4.4-11.0 [facility] Blood erythrocytes count (nu mber/volume)Ordered By: Hyacinth Bran on 04-10-2023 RBC (Bld) [#/Vol] 4.65 10*6/uL 4.6-6.2 [facility] Blood hemoglobin measurement (mass/volume)Ordered By: Hyacinth Bran on 04-10-2023 Hemoglobin (Bld) [Mass/Vol] 16.0 g/dL 13.0-16.5 [facility] Blood lymphocytes/100 leukoc ytesOrdered By: Hyacinth Bran on 04-10-2023 Lymphocytes/100 WBC (Bld) 27.5 % 19-41 [facility] Blood monocytes/100 leukocyt esOrdered By: Hyacinth Bran on 04-10-2023 Monocytes/100 WBC (Bld) 8.7 % 0-10 [facility] Blood platelet mean volumeOr dered By: Hyacinth Bran on 04-10-2023 Platelet mean volume (Bld) [Entitic vol] 9.9 fL 6.2-12.0 [facility] Determination of erythrocyte mean corpuscular volume (MCV)Ordered By: Hyacinth Bran on 04-10-2023 MCV (RBC) [Entitic vol] 101.5 fL 80-94 [facility] Hematocrit Auto (Bld) [Volum e fraction]Ordered By: Hyacinth Bran on 04-10-2023 Hematocrit (Bld) [Volume fraction] 47.2 % 40-54 [facility] Laboratory - Chemistry and C hemistry - challengeOrdered By: Hyacinth Bran on 04-10-2023 ALP [Catalytic activity/Vol] 57 U/L 45-117 [facility] ALT [Catalytic activity/Vol] 39 U/L 16-61 [facility] CO2 [Moles/Vol] 27.0 mmol/L 21.0-32.0 [facility] Cobalamin (Vitamin B12) [Mass/Vol] 603 pg/mL 211-911 [facility] Globulin (S) [Mass/Vol] 3.8 g/dL 2.2-4.2 [facility] Urea nitrogen/Creatinine [Mass ratio] 24.3 mg/mg 10-20 [facility] Laboratory - Hematology and Cell countsOrdered By: Hyacinth Bran on 04-10-2023 Erythrocyte distribution width (RBC) [Entitic vol] 48.0 fL 35.1-43.9 [facility] Erythrocyte distribution width (RBC) [Ratio] 12.8 % 11.6-14.6 [facility] Immature granulocytes/100 WBC (Bld) 0.200 % 0.0-0.9 [facility] Comment on above: IG% - Immature Granu locytes (promyelocytes, myelocytes and metamyelocytes) > 1% indicates that a LEFT SHIFT is Present. MCH (RBC) [Entitic mass] 34.4 pg 27.0-32.0 [facility] Nucleated RBC/100 WBC (Bld) [Ratio] 0 % 0-5 [facility] MCHC Auto (RBC) [Mass/Vol]Or dered By: Hyacinth Bran on 04-10-2023 MCHC (RBC) [Mass/Vol] 33.9 g/dL 32-36 [facility] No Panel InformationOrdered By: Hyacinth Bran on 04-10-2023 Estimated GFR (MDRD) Amer 91 mL/min >60 [facility] Comment on above: GFR Calc Estimated GFR (MDRD) Non-Af Amer 75 mL/min >60 [facility] Comment on above: Non- GFR Calc Platelets bldOrdered By: Yosvany Bran on 04-10-2023 Platelets (Bld) [#/Vol] 284 10*3/uL 150-450 [facility] Serum or plasma albumin christianne urement (mass/volume)Ordered By: Hyacinth Bran on 04-10-2023 Albumin [Mass/Vol] 3.8 g/dL 3.2-5.0 [facility] Serum or plasma albumin/glob ulin mass ratioOrdered By: Hyacinth Bran on 04-10-2023 Albumin/Globulin [Mass ratio] 1.0 {ratio} 0.9-2.4 [facility] Serum or plasma calcium christianne urement (mass/volume)Ordered By: Hyacinth Bran on 04-10-2023 Calcium [Mass/Vol] 9.2 mg/dL 8.5-10.1 [facility] Serum or plasma cholesterol in HDL measurement (mass/volume)Ordered By: Hyacinth Bran on 04-10-2023 Cholesterol in HDL [Mass/Vol] 53 mg/dL >40 [facility] Comment on above: The drugs N-Acetylcy steine and Metamizole may falsely depress this assay. Reference Range HDL <40 mg/dL Low HDL Cholesterol HDL >or= 60 mg/dL High HDL Cholesterol Serum or plasma cholesterol in VLDL measurement (mass/volume)Ordered By: Hyacinth Bran on 04-10-2023 Cholesterol in VLDL [Mass/Vol] 32 mg/dL 5-40 [facility] Serum or plasma creatinine m easurement (mass/volume)Ordered By: Hyacinth Bran on 04-10-2023 Creatinine [Mass/Vol] 1.03 mg/dL 0.70-1.30 [facility] Comment on above: The validity of the calculated GFR & GFRAA in patients over 70 years has not been determined. Clinical correlation is essential. Serum or plasma low density lipoprotein (LDL) cholesterol measurement (mass/volume)Ordered By: Hyacinth Bran on 04-10-2023 Cholesterol in LDL [Mass/Vol] 105 mg/dL 0-130 [facility] Serum or plasma urea nitroge n measurement (mass/volume)Ordered By: Hyacinth Bran on 04-10-2023 Urea nitrogen [Mass/Vol] 25 mg/dL 7-18 [facility] Thin prep Papanicolaou smear with manual screeningOrdered By: Hyacinth Bran on 04-10-2023 Thin prep Papanicolaou smear with manual screening 24 U/L 15-37 [facility] Thin prep Papanicolaou smear with manual screening 5 5-15 [facility] Absolute lymphocyte counton 02-23-2022 Lymphocytes Auto (Unsp spec) [#/Vol] 1.85 10*3/uL 0.83-4.51 [facility] Work Phone: Basophil percentageon 2021 Basophils/100 WBC (Bld) 0.9 % 0-1 [facility] Work Phone: Bilirubin [Mass/Vol] 0.90 mg/dL 0.20-1.00 [facility] Work Phone: Comment on above: For patients on eltr ombopag therapy, use of Dimension [place] TBIL is not recommended. Chloride [Moles/Vol] 108 mmol/L 98-107 [facility] Work Phone: Cholesterol [Mass/Vol] 182 mg/dL <200 [facility] Work Phone: Comment on above: <200 mg/dL Desirable 200-240 mg/dL Borderline >240 mg/dL High Risk Eosinophils/100 WBC (Bld) 6.2 % 0-5 [facility] Work Phone: Glucose [Mass/Vol] 105 mg/dL 74-106 [facility] Work Phone: Comment on above: Fasting Glucose resu lt from 100 to 125 mg/dL suggests IMPAIRED HOMEOSTASIS per A.D.A. criteria. Neutrophils (Bld) [#/Vol] 2.7 10*3/uL 2.0-7.7 [facility] Work Phone: Neutrophils/100 WBC (Bld) 49.3 % 47-70 [facility] Work Phone: Potassium [Moles/Vol] 4.1 mmol/L 3.5-5.1 [facility] Work Phone: Protein [Mass/Vol] 7.4 g/dL 6.4-8.2 [facility] Work Phone: Sodium [Moles/Vol] 140 mmol/L 136-145 [facility] Work Phone: Triglyceride [Mass/Vol] 134 mg/dL <199 [facility] Work Phone: Comment on above: The drugs N-Acetylcy steine and Metamizole may falsely depress this assay.Serum Triglycerides Reference Interval Normal <150 mg/dL Borderline high 150 - 199 mg/dL High 200 - 499 mg/dL Very High > or = 500 mg/dL WBC (Bld) [#/Vol] 5.5 10*3/uL 4.4-11.0 [facility] Work Phone: Blood erythrocytes count (nu mber/volume)on 02-23-2022 RBC (Bld) [#/Vol] 4.58 10*6/uL 4.6-6.2 [facility] Work Phone: Blood hemoglobin measurement (mass/volume)on 02-23-2022 Hemoglobin (Bld) [Mass/Vol] 15.4 g/dL 13.0-16.5 [facility] Work Phone: Blood lymphocytes/100 leukoc yteson 02-23-2022 Lymphocytes/100 WBC (Bld) 33.6 % 19-41 [facility] Work Phone: Blood monocytes/100 leukocyt eson 02-23-2022 Monocytes/100 WBC (Bld) 9.6 % 0-10 [facility] Work Phone: Blood platelet mean volumeon 02-23-2022 Platelet mean volume (Bld) [Entitic vol] 9.9 fL 6.2-12.0 [facility] Work Phone: Determination of erythrocyte mean corpuscular volume (MCV)on 02-23-2022 MCV (RBC) [Entitic vol] 100.0 fL 80-94 [facility] Work Phone: Hematocrit Auto (Bld) [Volum e fraction]on 02-23-2022 Hematocrit (Bld) [Volume fraction] 45.8 % 40-54 [facility] Work Phone: Laboratory - Chemistry and C hemistry - challengeon 02-23-2022 ALP [Catalytic activity/Vol] 60 U/L 45-117 [facility] Work Phone: ALT [Catalytic activity/Vol] 36 U/L 16-61 [facility] Work Phone: CO2 [Moles/Vol] 25.0 mmol/L 21.0-32.0 [facility] Work Phone: Globulin (S) [Mass/Vol] 3.7 g/dL 2.2-4.2 [facility] Work Phone: Urea nitrogen/Creatinine [Mass ratio] 25.0 mg/mg 10-20 [facility] Work Phone: Laboratory - Hematology and Cell countson 02-23-2022 Erythrocyte distribution width (RBC) [Entitic vol] 47.3 fL 35.1-43.9 [facility] Work Phone: Erythrocyte distribution width (RBC) [Ratio] 12.8 % 11.6-14.6 [facility] Work Phone: Immature granulocytes/100 WBC (Bld) 0.400 % 0.0-0.9 [facility] Work Phone: Comment on above: IG% - Immature Granu locytes (promyelocytes, myelocytes and metamyelocytes) > 1% indicates that a LEFT SHIFT is Present. MCH (RBC) [Entitic mass] 33.6 pg 27.0-32.0 [facility] Work Phone: Nucleated RBC/100 WBC (Bld) [Ratio] 0 % 0-5 [facility] Work Phone: MCHC Auto (RBC) [Mass/Vol]on 02-23-2022 MCHC (RBC) [Mass/Vol] 33.6 g/dL 32-36 [facility] Work Phone: No Panel Informationon 02-23 Estimated GFR (MDRD) Amer 91 mL/min >60 [facility] Work Phone: Comment on above: GFR Calc Estimated GFR (MDRD) Non-Af Amer 75 mL/min >60 [facility] Work Phone: Comment on above: Non- GFR Calc Vitamin D 25-Hydroxy 65.2 ng/mL [facility] Work Phone: Comment on above: Vitamin D 25(OH) Sta tus Range Deficiency <20 ng/mL (50nmol/L) Insufficiency 20 - 30 ng/mL (50 - 75 nmol/L) Sufficiency 30 - 100 ng/mL (75 - 250 nmol/L) Toxicity >100 ng/mL (>250 nmol/L) Platelets bldon 02-23-2022 Platelets (Bld) [#/Vol] 295 10*3/uL 150-450 [facility] Work Phone: Serum or plasma albumin christianne urement (mass/volume)on 02-23-2022 Albumin [Mass/Vol] 3.7 g/dL 3.2-5.0 [facility] Work Phone: Serum or plasma albumin/glob ulin mass ratioon 07-01-2022 Albumin/Globulin [Mass ratio] 1.0 {ratio} 0.9-2.4 [facility] Work Phone: Serum or plasma calcium christianne urement (mass/volume)on 02-23-2022 Calcium [Mass/Vol] 9.1 mg/dL 8.5-10.1 [facility] Work Phone: Serum or plasma cholesterol in HDL measurement (mass/volume)on 02-23-2022 Cholesterol in HDL [Mass/Vol] 48 mg/dL >40 [facility] Work Phone: Comment on above: The drugs N-Acetylcy steine and Metamizole may falsely depress this assay. Reference Range HDL <40 mg/dL Low HDL Cholesterol HDL >or= 60 mg/dL High HDL Cholesterol Serum or plasma cholesterol in VLDL measurement (mass/volume)on 02-23-2022 Cholesterol in VLDL [Mass/Vol] 27 mg/dL 5-40 [facility] Work Phone: Serum or plasma creatinine m easurement (mass/volume)on 02-23-2022 Creatinine [Mass/Vol] 1.04 mg/dL 0.70-1.30 [facility] Work Phone: Comment on above: The validity of the calculated GFR & GFRAA in patients over 70 years has not been determined. Clinical correlation is essential. Serum or plasma low density lipoprotein (LDL) cholesterol measurement (mass/volume)on 02-23-2022 Cholesterol in LDL [Mass/Vol] 107 mg/dL 0-130 [facility] Work Phone: Serum or plasma urea nitroge n measurement (mass/volume)on 02-23-2022 Urea nitrogen [Mass/Vol] 26 mg/dL 7-18 [facility] Work Phone: Thin prep Papanicolaou smear with manual screeningon 02-23-2022 Thin prep Papanicolaou smear with manual screening 29 U/L 15-37 [facility] Work Phone: Thin prep Papanicolaou smear with manual screening 7 5-15 [facility] Work Phone: Vital Signs Date Time Vital Sign Value Performing Clinician Facility 06-07-2025 10:30-0400 Body height 182.[address] Hyacinth Bran MD Work Phone: [facility] 06-07-2025 10:30-0400 Body mass index (BMI) [Ratio] 34.2 kg/m2 Dr. Hyacinth Bran MD Work Phone: [facility] 06-07-2025 10:30-0400 Body temperature 96.6 [degF] Dr. Hyacinth Bran MD Work Phone: [facility] 06-07-2025 10:30-0400 Body weight 114.[address] Hyacinth Bran MD Work Phone: [facility] 06-07-2025 10:30-0400 Diastolic blood pressure 84 mm[Hg] Dr. Hyacinth Bran MD Work Phone: [facility] 06-07-2025 10:30-0400 Heart rate 75 /min Dr. Hyacinth Bran MD Work Phone: [facility] 06-07-2025 10:30-0400 Respiratory rate 18 /min Dr. Hyacinth Bran MD Work Phone: [facility] 06-07-2025 10:30-0400 SaO2% (BldA) [Mass fraction] 92 % Dr. Hyacinth Bran MD Work Phone: [facility] 06-07-2025 10:30-0400 Systolic blood pressure 132 mm[Hg] Dr. Hyacinth Bran MD Work Phone: [facility] 10-25-2023 08:46-0500 Diastolic Blood Pressure Non-Invasive 96 mm[Hg] THO BAE MD [facility] 10-25-2023 08:46-0500 Systolic Blood Pressure Non-Invasive 146 mm[Hg] THO BAE MD [facility] 10-25-2023 08:27-0500 Body temperature 97.88 [degF] THO BAE MD [facility] 10-25-2023 08:27-0500 Diastolic Blood Pressure Non-Invasive 96 mm[Hg] THO BAE MD [facility] 10-25-2023 08:27-0500 Heart rate 83 /min THO BAE MD [facility] 10-25-2023 08:27-0500 Reason For Taking VItal Signs THO BAE MD [facility] 10-25-2023 08:27-0500 Systolic Blood Pressure Non-Invasive 147 mm[Hg] THO BAE MD [facility] 10-24-2023 23:19-0500 Body temperature 98.24 [degF] THO BAE MD [facility] 10-24-2023 23:19-0500 Diastolic Blood Pressure Non-Invasive 68 mm[Hg] THO BAE MD [facility] 10-24-2023 23:19-0500 Heart rate 90 /min THO BAE MD [facility] 10-24-2023 23:19-0500 Reason For Taking VItal Signs THO BAE MD [facility] 10-24-2023 23:19-0500 Respiratory rate 18 /min THO BAE MD [facility] 10-24-2023 23:19-0500 Systolic Blood Pressure Non-Invasive 132 mm[Hg] THO BAE MD [facility] 10-24-2023 14:58-0500 Body temperature 98.24 [degF] THO BAE MD [facility] 10-24-2023 14:58-0500 Heart rate 98 /min THO BAE MD [facility] 10-24-2023 14:58-0500 Reason For Taking VItal Signs THO BAE MD [facility] 10-24-2023 14:58-0500 Respiratory rate 18 /min THO BAE MD [facility] 10-24-2023 08:05-0500 Respiratory rate 20 /min THO BAE MD [facility] 10-23-2023 04:31-0500 Body temperature 98.24 [degF] THO BAE MD [facility] 10-23-2023 04:31-0500 Heart rate 72 /min THO BAE MD [address] [place] [address] 10-22-2023 20:12-0500 Body height 180.3 cm THO BAE MD [address] [place] [address] 10-22-2023 20:12-0500 Body weight 115.7 kg THO BAE MD [address] [place] [address] 10-22-2023 20:12-0500 Body weight 35.59 kg/m2 THO BAE MD [facility] 10-22-2023 19:40-0500 Body temperature 98.06 [degF] THO BAE MD [facility] 10-22-2023 19:40-0500 Heart rate 97 /min THO BAE MD [facility] 10-22-2023 19:40-0500 Mean blood pressure 110 mm[Hg] THO BAE MD [facility] 10-22-2023 19:30-0500 Heart rate 98 /min THO BAE MD [facility] 10-22-2023 19:14-0500 Heart rate 117 /min THO BAE MD [facility] 10-22-2023 19:14-0500 Mean blood pressure 113 mm[Hg] THO BAE MD [facility] 10-22-2023 18:45-0500 Mean blood pressure 106 mm[Hg] THO BAE MD [facility] 10-22-2023 17:43-0500 Body temperature 97.7 [degF] THO BAE MD [facility] 10-22-2023 17:35-0500 Respiratory Rate - Anes 21 br/min THO BAE MD [address] [place] [address] 10-22-2023 17:30-0500 Respiratory Rate - Anes 21 br/min THO BAE MD [address] [place] [address] 10-22-2023 17:25-0500 Respiratory Rate - Anes 20 br/min THO BAE MD [address] [place] [address] 10-22-2023 17:10-0500 Body temperature 99.01 [degF] THO BAE MD [address] [place] [address] 10-22-2023 17:05-0500 Body temperature 98.96 [degF] THO BAE MD [address] [place] [address] 10-22-2023 17:00-0500 Body temperature 98.91 [degF] THO BAE MD [address] [place] [address] 10-08-2023 12:12-0500 Blood Pressure Cuff Size THO BAE MD [address] [place] [address] 10-08-2023 12:12-0500 Blood Pressure Location THO BAE MD [address] [place] [address] 10-08-2023 12:12-0500 Blood Pressure Method THO BAE MD [address] [place] [address] 10-08-2023 12:12-0500 Diastolic Blood Pressure Non-Invasive 88 mm[Hg] THO BAE MD [facility] 10-08-2023 12:12-0500 Systolic Blood Pressure Non-Invasive 144 mm[Hg] THO BAE MD [address] [place] [address] 10-08-2023 11:49-0500 Blood Pressure Cuff Size THO BAE MD [facility] 10-08-2023 11:49-0500 Blood Pressure Location THO ABE MD [facility] 10-08-2023 11:49-0500 Blood Pressure Method THO BAE MD [facility] 10-08-2023 11:49-0500 Body height 180.3 cm THO BAE MD [facility] 10-08-2023 11:49-0500 Body temperature 97.16 [degF] THO BAE MD [facility] 10-08-2023 11:49-0500 Body weight 119.6 kg THO BAE MD [facility] 10-08-2023 11:49-0500 Diastolic Blood Pressure Non-Invasive 90 mm[Hg] THO BAE MD [facility] 10-08-2023 11:49-0500 Heart rate 86 /min THO BAE MD [facility] 10-08-2023 11:49-0500 Systolic Blood Pressure Non-Invasive 168 mm[Hg] THO BAE MD [facility] 07-04-2023 10:33-0500 Body height 182.[address] Hyacinth Bran Work Phone: [facility] 07-04-2023 10:33-0500 Body mass index (BMI) [Ratio] 35.1 kg/m2 Dr. Hyacinth Bran Work Phone: [facility] 07-04-2023 10:33-0500 Body weight 117.[address] Hyacinth Bran Work Phone: [facility] 06-14-2023 13:25-0400 Body mass index (BMI) [Ratio] 34.9 kg/m2 Dr. Hyacinth Bran Work Phone: [facility] 06-14-2023 13:25-0400 Body weight 117.[address] Hyacinth Bran Work Phone: [facility] 04-10-2023 10:16-0400 Body height 185.[address] Hyacinth Bran Work Phone: [facility] 04-10-2023 10:16-0400 Body mass index (BMI) [Ratio] 33.3 kg/m2 Dr. Hyacinth Bran Work Phone: [facility] 04-10-2023 10:16-0400 Body temperature 95.7 [degF] Dr. Hyacinth Bran Work Phone: [facility] 04-10-2023 10:16-0400 Body weight 114.[address] Hyacinth Bran Work Phone: [facility] 04-10-2023 10:16-0400 Diastolic blood pressure 84 mm[Hg] Dr. Hyacinth Bran Work Phone: [facility] 04-10-2023 10:16-0400 Heart rate 87 /min Dr. Hyacinth Bran Work Phone: [facility] 04-10-2023 10:16-0400 Respiratory rate 18 /min Dr. Hyacinth Bran Work Phone: [facility] 04-10-2023 10:16-0400 SaO2% (BldA) [Mass fraction] 95 % Dr. Hyacinth Bran Work Phone: [facility] 04-10-2023 10:16-0400 Systolic blood pressure 134 mm[Hg] Dr. Hyacinth Bran Work Phone: [facility] 02-15-2022 14:41-0400 Diastolic blood pressure 78 mm[Hg] Dr. Hyacinth Bran Work Phone: [facility] Work Phone: 02-15-2022 14:41-0400 Systolic blood pressure 132 mm[Hg] Dr. Hyacinth Bran Work Phone: [facility] Work Phone: 02-15-2022 13:49-0400 Body height 182.[address] Hyacinth Brna Work Phone: [facility] Work Phone: 02-15-2022 13:49-0400 Body mass index (BMI) [Ratio] 33.9 kg/m2 Dr. Hyacinth Bran Work Phone: [facility] Work Phone: 02-15-2022 13:49-0400 Body temperature 96.8 [degF] Dr. Hyacinth Bran Work Phone: [facility] Work Phone: 02-15-2022 13:49-0400 Body weight 113.[address] Hyacinth Bran Work Phone: [facility] Work Phone: 02-15-2022 13:49-0400 Heart rate 86 /min Dr. Hyacinth Bran Work Phone: [facility] Work Phone: 02-15-2022 13:49-0400 Respiratory rate 18 /min Dr. Hyacinth Bran Work Phone: [facility] Work Phone: 02-15-2022 13:49-0400 SaO2% (BldA) [Mass fraction] 96 % Dr. Hyacinth Bran Work Phone: [facility] Work Phone: Encounters Encounter Date Encounter Type Care Provider Facility Start: 06-24-2025 ambulatory Hyacinth Bran Facility :[facility] Start: 06-23-2025 End: 06-23-2025 ambulatory Hyacinth Bran Facility:[facility] Start: 06-07-2025 End: 06-07-[address] [facility] Start: 06-07-2025 End: 06-07-[address] Hyacinth Bran MD Work Phone: [facility] Start: 12-10-2024 End: 12-10-2024 ambulatory Hyacinth Bran Facility:[facility] Start: 11-04-2024 End: 11-04-2024 ambulatory Ramez Delaney Facility:[facility] Start: 11-04-2024 End: 11-04-2024 ambulatory Hyacinth Bran Facility:[facility] Start: 07-09-2024 End: 07-09-2024 ambulatory Hyacinth Bran Facility:[facility] Start: 07-09-2024 End: 07-09-2024 ambulatory Hyacinth Bran Facility:[facility] Start: 12-10-2023 End: 03-27-2024 ambulatory THO BAE MD Facility:A Start: 10-22-2023 End: 10-25-2023 Evaluation and management of inpatient THO BAE MD [facility] Start: 10-08-2023 End: 10-08-2023 Admission to establishment THO BAE MD [facility] Start: 10-08-2023 End: 10-08-2023 ambulatory HYACINTH BRAN MD Facility:[facility] Start: 07-16-2023 End: 07-16-[address] Hyacinth Bran Work Phone: [facility] Work Phone: Start: 07-16-2023 End: 07-16-[address] Hyacinth Bran Work Phone: [facility] Work Phone: Start: 07-04-2023 End: 07-04-[address] Hyacinth Bran Work Phone: [facility] Work Phone: Start: 07-01-2023 End: 07-01-[address] Hyacinth Bran Work Phone: [facility] Work Phone: Start: 07-01-2023 End: 07-01-[address] Hyacinth Bran Work Phone: [facility] Work Phone: Start: 06-14-2023 End: 06-14-[address] Hyacinth Bran Work Phone: [facility] Work Phone: Start: 06-04-2023 Non-patient / Non-visit Dr. Jung Work Phone: [facility] Start: 06-04-2023 End: 06-04-[address] Hyacinth Bran Work Phone: [facility] Work Phone: Start: 06-04-2023 End: 06-04-[address] Hyacinth Bran Work Phone: [facility]-Pulmonary Services/Neurology Work Phone: Start: 04-12-2023 End: 04-12-[address] Hyacinth Bran Work Phone: [facility] Work Phone: Start: 04-12-2023 End: 04-12-[address] Hyacinth Bran Work Phone: [facility]-Laboratory, [facility] Start: 04-10-2023 End: 04-10-[address] Hyacinth Bran Work Phone: [facility] Work Phone: Start: 04-10-2023 End: 04-10-[address] Hyacinth Bran Work Phone: [facility] Work Phone: Start: 02-23-2022 End: 02-23-[address] Hyacinth Bran Work Phone: [facility] Start: 02-15-2022 End: 02-15-[address] Hyacinth Bran Work Phone: [facility] Procedures Date Procedure Procedure Detail Performing Clinician Start: 07-16-2023 Computerized axial tomography of cervical spine with contrast Dr. Hyacinth Bran Work Phone: Start: 07-04-2023 X-ray of cervical spine Dr. Hyacinth Bran Work Phone: Start: 07-01-2023 MRI of cervical spine Claudia Bran Work Phone: Start: 04-10-2023 End: 04-10-2023 Plain x-ray of hand Dr. Hyacinth Bran Work Phone: Start: 02-23-2022 US scan of abdominal aorta Dr. Hyacinth Bran Work Phone: Start: 08-26-2014 Lumbar spinal fusion FLAVIA BAE MD Arthroscopy of shoulder THO BAE MD Comment on above: left Colonoscopy THO BAE MD History of repair of musculotendinous cuff of shoulder Hx of repair of left rotator cuff Dr. Hyacinth Bran Work Phone: Spermatocele (disorder) THO BAE MD Comment on above: left Plan of Treatment Date Care Activity Detail Author Start: 07-20-2025 [facility] Start: 06-21-2025 Registered Recurring Registered Recu rring -Physical Therapy Work Phone: Start: 07-04-2023 X-ray of cervical spine Cerv S pine 2 or 3 Views [facility] Start: 07-04-2023 XR Cervical spine 2 or 3 Views [facility] Start: 06-14-2023 Patient referral [facility] Work Phone: Start: 04-10-2023 Patient referral [facility] Work Phone: CBC W Auto Different ial panel - Blood [facility] Comprehensive metabo lic 1999 panel - Serum or Plasma [facility] CT Cervical spine WO and W contrast IV [facility] Lipid 1995 panel - S margareth or Plasma [facility] MR Cervical spine [facility] MR Lumbar spine [facility] Patient referral [facility] Work Phone: [facility] Immunizations Immunization Date Immunization Notes Care Provider Fa cility 06-07-2025 Pneumococcal Vaccine PCV20 (Prevnar 20) Dr. Hyacinth Bran MD Work Phone: [facility] 06-07-2025 Seasonal trivalent influenza vaccine, adjuvanted, preservative free Dr. Hyacinth Bran MD Work Phone: [facility] 07-09-2024 Seasonal trivalent influenza vaccine, adjuvanted, preservative free Dr. Hyacinth Bran MD Work Phone: [facility] 06-14-2022 influenza virus vaccine, unspecified formulation THO BAE MD [facility] 06-14-2022 influenza, injectabl e, quadrivalent, preservative free Dr. Hyacinth Bran Work Phone: [facility] 06-14-2022 influenza, seasonal, injectable Dr. Hyacinth Bran Work Phone: [facility] 12-20-2020 Covid (Pfizer) Dr. Hyacinth roche Work Phone: [facility] Comment on above: Result Comment: 2023: [id number] 11-29-2020 Covid (Pfizer) Dr. Hyacinth roche Work Phone: [facility] Comment on above: Result Comment: 2023: [id number] Payers Date Payer Category Payer Self-pay [id number] 2023 Unknown [id number] 2015 Medicare [id number] 1950 Unknown [id number] 2.16.8 [id number] 1950 Unknown [id number] 2.16.8 [id number] 1950 Unknown [id number] 2.16.8 [id number] Medicare SELF PAY INSURANCE [id number] Unknown [id number] 2.16.8 [id number] Unknown [id number] 2.16.8 [id number] Unknown [id number] 2.16.8 [id number] Unknown [id number] 2.16.8 [id number] Unknown [id number] 2.16.8 [id number] Unknown [id number] 2.16.8 [id number] Unknown [id number] 2.16.8 [id number] Unknown [id number] 2.16.8 [id number] Unknown [id number] 2.16.8 [id number] Social History Date Type Detail Facility Start: 02-15-2022 End: 07-04-2023 Tobacco smoking status NHIS Unknown if ever smoked [facility] Start: 1950 Sex Assigned At Male [facility] Start: 10-08-2023 End: 06-07-2025 Tobacco smoking status Ex-smoker (finding) [facility] Sex Assigned At Sex [facility] Sex Male [facility] Medical Equipment Procedure Code Equipment Code Equipment Origin al Text Equipment Identifier Dates Anterior Cervica l Discectomy/Fusion 3 Le Unknown 10/22/23 Unknown Unknown FDA Start: 10-22-2023 Anterior Cervica l Discectomy/Fusion 3 Le Unknown 10/22/23 Unknown Unknown FDA Start: 10-22-2023 Anterior Cervica l Discectomy/Fusion 3 Le Unknown 10/22/23 Unknown Unknown FDA Start: 10-22-2023 Anterior Cervica l Discectomy/Fusion 3 Le Unknown 10/22/23 Unknown Unknown FDA Start: 10-22-2023 Anterior Cervica l Discectomy/Fusion 3 Le Unknown 10/22/23 Unknown Unknown FDA Start: 10-22-2023 Anterior Cervica l Discectomy/Fusion 3 Le Unknown 10/22/23 Unknown Unknown FDA Start: 10-22-2023 Anterior Cervica l Discectomy/Fusion 3 Le Unknown 10/22/23 Unknown Unknown FDA Start: 10-22-2023 Functional Status Date Assessment Result Facility 10-25-2023 Functional Status Identified as high risk, Fall ID band on, Room located near nursing station, Bed alert on, Door open, Bathroom light on, Non-Slip footwear [facility] 10-25-2023 Functional Status [facility] 10-25-2023 Functional Status Mod I [facility] 10-25-2023 Functional Status [facility] 10-25-2023 Functional Status Antiembolism S tocking On/Re-applied bilateral knee high [facility] 10-24-2023 Functional Status Repositions self [facility] 10-24-2023 Functional Status [facility] 10-24-2023 Functional Status [facility] 10-24-2023 Functional Status Done [facility] Functional Status Mod I [facility] 10-24-2023 Functional Status [facility]23 Functional Status [facility]-23[facility]23 Functional Status [facility] 10-22-2023 Functional Status Maintained [facility] 10-08-2023 Functional Status Sensory Deficits None A [facility] Mental Status Date Assessment Result Facility 10-25-2023 Mental Status Oriented x 4 [facility] 10-24-2023 Mental Status [facility] 10-24-2023 Mental Status [facility] 10-22-2023 Mental Status [facility] Clinical Notes 06-04-2023 to 06-07-2025 Note Date & Type Note Facility 06-07-2025 Progress note [facility] 10-25-2023 Hospital Discharge instructions Patient Education 10/25/2023 14:18:50 Anterior Cervical Diskectomy and Fusion, Care After Anterior Cervical Diskectomy and Fusion, Care After This sheet gives you information about how to care for yourself after your procedure. Your health care provider may also give you more specific instructions. If you have problems or questions, contact your health care provider. What can I expect after the procedure? After the procedure, it is common to have: Neck pain. Discomfort when swallowing. Slight hoarseness. Follow these instructions at home: If you have a neck brace: Wear it as told by your health care provider. Remove it only as told by your health care provider. Keep the brace clean and dry. Ask your health care provider if you should remove the brace to bathe or shower. Incision care Follow instructions from your health care provider about how to take care of your incision. Make sure you: ?Wash your hands with soap and water before and after you change your bandage (dressing). If soap and water are not available, use hand insurance follow up specialist. ?Change your dressing as told by your health care provider. ?Leave stitches (sutures), skin glue, or adhesive strips in place. These skin closures may need to stay in place for 2 weeks or longer. If adhesive strip edges start to loosen and curl up, you may trim the loose edges. Do not remove adhesive strips completely unless your health care provider tells you to do that. Check your incision area every day for signs of infection. Check for: ?Redness, swelling, or pain. ?Fluid or blood. ?Warmth. ?Pus or a bad smell. Managing pain, stiffness, and swelling Take ldhc-kki-wahzqkk and prescription medicines only as told by your health care provider. If directed, put ice on the injured area. ?If you have a removable brace, remove it as told by your health care provider. ?Put ice in a plastic bag. ?Place a towel between your skin and the bag. ?Leave the ice on for 20 minutes, 2 3 times a day. Activity Return to your normal activities as told by your health care provider. Ask your health care provider what activities are safe for you. Do exercises as told by your health care provider. Do not take baths, swim, or use a hot tub until your health care provider approves. Do not lift anything that is heavier than 10 lb (4.5 kg), or the limit that you are told, until your health care provider says that it is safe. General instructions Ask your health care provider if the medicine prescribed to you: ?Requires you to avoid driving or using heavy machinery. ?Can cause constipation. You may need to take actions to prevent or treat constipation, such as: ?Drink enough fluid to keep your urine pale yellow. ?Take nhhd-syy-kektsnc or prescription medicines. ?Eat foods that are high in fiber, such as beans, whole grains, and fresh fruits and vegetables. ?Limit foods that are high in fat and processed sugars, such as fried and sweet foods. Do not use any products that contain nicotine or tobacco, such as cigarettes, e-cigarettes, and chewing tobacco. These can delay healing. If you need help quitting, ask your health care provider. Keep all follow-up visits and physical therapy appointments as told by your health care provider. This is important. Contact a health care provider if you have: A fever. Redness, swelling, or pain around your incision. Fluid or blood coming from your incision. Pus or a bad smell coming from your incision. Pain that is not controlled by your pain medicine. Increasing hoarseness or trouble swallowing. Get help right away if you have: Severe pain. Sudden numbness or weakness in your arms. Warmth, tenderness, or swelling in your calf. Chest pain. Difficulty breathing. Summary After the procedure, it is common to have neck pain, discomfort when swallowing, and slight hoarseness. Follow instructions from your health care provider about how to take care of your incision. Check your incision area every day for signs of infection. Return to your normal activities as told by your health care provider. Ask your health care provider what activities are safe for you. Contact a health care provider if you have signs of infection at your incision. This information is not intended to replace advice given to you by your health care provider. Make sure you discuss any questions you have with your health care provider. Document Released: 09/07/2016 Document Revised: 05/07/2019 Document Reviewed: 05/07/2019 [employer] Patient Education 2020 [employer]. Follow Up Care 08/12/2023 11:31:01 With:[facility]AE [facility] Address: [facility] [address] [place] [id number] When:11/06/2023 10:00:00 Comments:FOLLOW UP With:HYACINTH BRAN MD Address: [facility] [address] [place] [id number]- When:1-2 days Comments:Please call the office to schedule a follow-up appointment. 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 Anterior cervical discectomy and interbody fusion C3-4; C4-5; C5-6; C6-C7 with placement of fibular strut allograft and application of anterior cervical locking plate and screws C3-C7 (procedure was performed on 10/22/2023; see operative note) Complications: None Brief Hospital course: Patient was admitted to [facility] on 10/22/2023. At that time he underwent the above-noted procedures a detailed description of which is available as a dictated operative note in the patient's medical record. Postsurgically the patient was transition to the surgical floor (6 E.) for a period of remobilization mild dysphagia was noted on postoperative day #1 but this then did resolve. Antecedent to discharge detailed verbal discharge instructions were relayed to the patient by me personally he demonstrated understanding. His preoperative symptoms including weakness numbness and tingling were markedly diminished postoperatively Condition on discharge: Stable Discharge disposition: Home Discharge diet: Regular Discharge activity: He is to wear his cervical collar. The cervical collar may be removed for showering and for meals if dysphagia occurs with the collar. Dressings may be removed. Dry sterile dressings can be reapplied. Patient may climb and descend stairs. Patient is not to drive. Discharge follow-up: 2 appointments been made in the office with this patient 1 to 2 weeks postop 1 at 6 weeks postop Discharge medications: Patient may resume all preoperative medications at same dose and dosing interval Discharge instructions: My office is to be contacted immediately if there is any sign of infection this is been explained to the patient is increased drainage from the wound redness swelling fevers chills or increased pain about the wound. If my office cannot be contacted he is to present to the nearest emergency department for further evaluation and treatment. Digitally Signed by THO BAE MD on 10/25/2023 03:55 PM [facility] 10-25-2023 Note Discharge Instructions Thank you for allowing [facility] to assist you with your healthcare needs. The following is important discharge information regarding your hospital visit. Your Care Team HYACINTH BRAN MD Your Diagnosis High blood pressure, HTN (hypertension) Nausea Other spondylosis with radiculopathy, cervical region What to do next Follow Up Appointments Follow Up with THO BAE MD, [facility]/Spine, Orthopedic When 11/06/2023 10:00 AM EDT Why: FOLLOW UP Where: [facility] [address] [place] [address]- Follow Up with HYACINTH BRAN MD When Within 1-2 days Why: Please call the office to schedule a follow-up appointment. Where: [facility] [address] [place] [address]- The Following Activity and Diet Have Been Ordered for You Discharge Activity - Ordered -- Lifting Restricted less than 10 pounds, 10/25/23 13:58:00 EST Discharge Diet - Ordered -- Type of Diet: Regular, 10/25/23 13:58:00 EST The Following Equipment Has Been Ordered for You No qualifying data available. The Following Treatments Have Been Ordered for You Discharge Labs No qualifying data available. Discharge Radiology No qualifying data available. Other Therapies No qualifying data available. Post Acute Orders No qualifying data available. Someone Will Contact You Regarding These Home Health Referrals No home referrals have been ordered for you. No one will call you. Allergies NKA Medications Please ask your primary doctor or pharmacist before taking any other medication not listed, including over the counter drugs, herbal medications, vitamins and or supplements as they may interact with your home medications. What How Much When Instructions Last Dose Unchanged acetaminophen (Tylenol 500 mg oral tablet) 2 tab(s) by mouth Every 4 hours as needed for for pain NEW acetaminophen-oxyCODONE (Percocet 5 mg-325 mg oral tablet) 1 tab(s) by mouth Every 6 hours as needed for as needed for pain Duration: 7 Days Unchanged aspirin (aspirin 81 mg oral delayed release tablet) 1 tab(s) by mouth Once a day (in the morning) per patient last dose is 2023 Unchanged cholecalciferol (Vitamin D3) 50 Microgram by mouth Every day Unchanged cholecalciferol (Vitamin D3) 50 Microgram by mouth Every day Unchanged herbal/ nutritional product (turmeric 1000 mg oral capsule) 1 cap by mouth Every day Unchanged magnesium oxide (Magnesium 250 mg tablet) 2 tab(s) by mouth Once a day Duration: 7 Days Unchanged menaquinone (Vitamin K2 100 mcg oral tablet) 2 tab(s) by mouth Once a day Unchanged multivitamin with minerals (Centrum Silver Men's oral tablet) 1 tab(s) by mouth Once a day Unchanged NIFEdipine (NIFEdipine (Eqv-Procardia XL) 60 mg oral tablet, extended release) 1 tab(s) by mouth Once a day (in the morning) Unchanged oxymetazoline nasal (Vicks Sinex Severe 0.05% nasal spray) 1 spray(s) each nostril Two (2) times a day as needed for as needed for nasal congestion Unchanged ramipril (ramipril 10 mg oral capsule) 1 cap by mouth Once a day (in the morning) Unchanged sulindac (sulindac 200 mg oral tablet) 1 tab(s) by mouth Two (2) times a day as needed for as needed for arthritis What How Much When Comments Stop Taking mupirocin topical (mupirocin 2% topical ointment) 1 application Topical Two (2) times a day Bilateral intranasal application twice daily x 5 days pre-surgery &/ or as many days pre-surgery as possible. Please take this list to your next doctor s visit. Bring all medications you take, including over the counter medications, herbals and other supplements with you to your doctor s visit. Patients and families are reminded to discard old lists and to update any records with all medication providers or retail pharmacies. Medication Leaflets acetaminophen and oxycodone (a SEET a MIN oh fen and OX i KOE done) Endocet 10/325, Endocet 2.5/325, Endocet 5/325, Endocet 7.5/325, Nalocet, Percocet, Prolate What is the most important information I should know about acetaminophen and oxycodone? MISUSE OF OPIOID MEDICINE CAN CAUSE ADDICTION, OVERDOSE, OR . Keep the medication in a place where others cannot get to it. Taking opioid medicine during may cause life-threatening withdrawal symptoms in the . Fatal side effects can occur if you use opioid medicine with alcohol, or with other drugs that cause drowsiness or slow your breathing. Stop taking this medicine and call your doctor right away if you have skin redness or a rash that spreads and causes blistering and peeling. What is acetaminophen and oxycodone? Acetaminophen and oxycodone is a combination medicine used to relieve moderate to severe pain. Acetaminophen and oxycodone contains an opioide medicine and may be habit-forming. Acetaminophen and oxycodone may also be used for purposes not listed in this medication guide. What should I discuss with my healthcare provider before taking acetaminophen and oxycodone? You should not use this medicine if you are allergic to acetaminophen or oxycodone, or if you have: severe asthma or breathing problems; or a blockage in your stomach or intestines. Tell your doctor if you have ever had: breathing problems, sleep apnea; liver disease; a drug or alcohol addiction; kidney disease; a head injury or seizures; urination problems; or problems with your thyroid, pancreas, or gallbladder. If you use opioid medicine while you are , your baby could become dependent on the drug. This can cause life-threatening withdrawal symptoms in the baby after it is born. Babies born dependent on opioids may need medical treatment for several weeks. Ask a doctor before using opioid medicine if you are . Tell your doctor if you notice severe drowsiness or slow breathing in the nursing baby. How should I take acetaminophen and oxycodone? Follow all directions on your prescription label. Never take this medicine in larger amounts, or for longer than prescribed. An overdose can damage your liver or cause . Tell your doctor if you feel an increased urge to use more of this medicine. Never share opioid medicine with another person, especially someone with a history of drug abuse or addiction. MISUSE CAN CAUSE ADDICTION, OVERDOSE, OR . Keep the medicine in a place where others cannot get to it. Selling or giving away opioid medicine is against the law. Measure liquid medicine carefully. Use the dosing syringe provided, or use a medicine dose-measuring device (not a kitchen spoon). If you need surgery or medical tests, tell the doctor ahead of time that you are using this medicine. You should not stop using this medicine suddenly. Follow your doctor's instructions about tapering your dose. Store at room temperature away from moisture and heat. Keep track of your medicine. You should be aware if anyone is using it improperly or without a prescription. Do not keep leftover opioid medication. Just one dose can cause in someone using this medicine accidentally or improperly. Ask your pharmacist where to locate a drug take-back disposal program. If there is no take-back program, flush the unused medicine down the toilet. What happens if I miss a dose? Since this medicine is used for pain, you are not likely to miss a dose. Skip any missed dose if it is almost time for your next dose. Do not use two doses at one time. What happens if I overdose? Seek emergency medical attention or call the Poison Help line at . An overdose of this medicine can be fatal, especially in a child or other person using the medicine without a prescription. Overdose symptoms may include nausea, vomiting, sweating, severe drowsiness, pinpoint pupils, slow breathing, or no breathing. Your doctor may recommend you get naloxone (a medicine to reverse an opioid overdose) and keep it with you at all times. A person caring for you can give the naloxone if you stop breathing or don't wake up. Your caregiver must still get emergency medical help and may need to perform CPR (cardiopulmonary resuscitation) on you while waiting for help to arrive. Anyone can buy naloxone from a pharmacy or local health department. Make sure any person caring for you knows where you keep naloxone and how to use it. What should I avoid while taking acetaminophen and oxycodone? Avoid driving or operating machinery until you know how this medicine will affect you. Dizziness or drowsiness can cause falls, accidents, or severe injuries. Do not drink alcohol. Dangerous side effects or could occur. Ask a doctor or pharmacist before using any other medicine that may contain acetaminophen (sometimes abbreviated as APAP). Taking certain medications together can lead to a fatal overdose. What are the possible side effects of acetaminophen and oxycodone? Get emergency medical help if you have signs of an allergic reaction: hives; difficulty breathing; swelling of your face, lips, tongue, or throat. Opioid medicine can slow or stop your breathing, and may occur. A person caring for you should give naloxone and/or seek emergency medical attention if you have slow breathing with long pauses, blue colored lips, or if you are hard to wake up. In rare cases, acetaminophen may cause a severe skin reaction that can be fatal. This could occur even if you have taken acetaminophen in the past and had no reaction. Stop taking this medicine and call your doctor right away if you have skin redness or a rash that spreads and causes blistering and peeling. Call your doctor at once if you have: noisy breathing, sighing, shallow breathing, breathing that stops; a light-headed feeling, like you might pass out; weakness, tiredness, fever, unusual bruising or bleeding; confusion, unusual thoughts or behavior; problems with urination; liver problems--nausea, upper stomach pain, tiredness, loss of appetite, dark urine, xavier-colored stools, jaundice (yellowing of the skin or eyes); low cortisol levels-- nausea, vomiting, loss of appetite, dizziness, worsening tiredness or weakness; or high levels of serotonin in the body--agitation, hallucinations, fever, sweating, shivering, fast heart rate, muscle stiffness, twitching, loss of coordination, nausea, vomiting, diarrhea. Serious breathing problems may be more likely in older adults and in those who are debilitated or have wasting syndrome or chronic breathing disorders. Common side effects include: dizziness, drowsiness, feeling tired; feelings of extreme happiness or sadness; nausea, vomiting, stomach pain; constipation; or headache. This is not a complete list of side effects and others may occur. Call your doctor for medical advice about side effects. You may report side effects to FDA at 4-087-WKH-5909. What other drugs will affect acetaminophen and oxycodone? You may have breathing problems or withdrawal symptoms if you start or stop taking certain other medicines. Tell your doctor if you also use an antibiotic, antifungal medication, heart or blood pressure medication, seizure medication, or medicine to treat HIV or hepatitis C. Opioid medication can interact with many other drugs and cause dangerous side effects or . Be sure your doctor knows if you also use: cold or allergy medicines, bronchodilator asthma/COPD medication, or a diuretic ('water pill'); medicines for motion sickness, irritable bowel syndrome, or overactive bladder; other opioids--opioid pain medicine or prescription cough medicine; a sedative like Valium--diazepam, alprazolam, lorazepam, Xanax, Klonopin, Versed, and others; drugs that make you sleepy or slow your breathing--a sleeping pill, muscle relaxer, medicine to treat mood disorders or mental illness; drugs that affect serotonin levels in your body--a stimulant, or medicine for depression, Parkinson's disease, migraine headaches, serious infections, or nausea and vomiting. This list is not complete. Other drugs may affect acetaminophen and oxycodone, including prescription and jkst-bsq-eogsklv medicines, vitamins, and herbal products. Not all possible interactions are listed here. Where can I get more information? Your doctor or pharmacist can provide more information about acetaminophen and oxycodone. Remember, keep this and all other medicines out of the reach of children, never share your medicines with others, and use this medication only for the indication prescribed. Every effort has been made to ensure that the information provided by [employer]. [employer]') is accurate, up-to-date, and complete, but no guarantee is made to that effect. Drug information contained herein may be time sensitive. [employer] information has been compiled for use by healthcare practitioners and consumers in the [place] and therefore [employer] does not warrant that uses outside of the [place] are appropriate, unless specifically indicated otherwise. [employer] drug information does not endorse drugs, diagnose patients or recommend therapy. [employer] drug information is an informational resource designed to assist licensed healthcare practitioners in caring for their patients and/or to serve consumers viewing this service as a supplement to, and not a substitute for, the expertise, skill, knowledge and judgment of healthcare practitioners. The absence of a warning for a given drug or drug combination in no way should be construed to indicate that the drug or drug combination is safe, effective or appropriate for any given patient. [employer] does not assume any responsibility for any aspect of healthcare administered with the aid of information [employer] provides. The information contained herein is not intended to cover all possible uses, directions, precautions, warnings, drug interactions, allergic reactions, or adverse effects. If you have questions about the drugs you are taking, check with your doctor, nurse or pharmacist. Copyright 2560-0609 [employer]. Version: 22.. Revision Date: 03/28/2023. Education Materials Anterior Cervical Diskectomy and Fusion, Care After This sheet gives you information about how to care for yourself after your procedure. Your health care provider may also give you more specific instructions. If you have problems or questions, contact your health care provider. What can I expect after the procedure? After the procedure, it is common to have: Neck pain. Discomfort when swallowing. Slight hoarseness. Follow these instructions at home: If you have a neck brace: Wear it as told by your health care provider. Remove it only as told by your health care provider. Keep the brace clean and dry. Ask your health care provider if you should remove the brace to bathe or shower. Incision care Follow instructions from your health care provider about how to take care of your incision. Make sure you: ? Wash your hands with soap and water before and after you change your bandage (dressing). If soap and water are not available, use hand insurance follow up specialist. ? Change your dressing as told by your health care provider. ? Leave stitches (sutures), skin glue, or adhesive strips in place. These skin closures may need to stay in place for 2 weeks or longer. If adhesive strip edges start to loosen and curl up, you may trim the loose edges. Do not remove adhesive strips completely unless your health care provider tells you to do that. Check your incision area every day for signs of infection. Check for: ? Redness, swelling, or pain. ? Fluid or blood. ? Warmth. ? Pus or a bad smell. Managing pain, stiffness, and swelling Take vpgj-ocs-lgoexmk and prescription medicines only as told by your health care provider. If directed, put ice on the injured area. ? If you have a removable brace, remove it as told by your health care provider. ? Put ice in a plastic bag. ? Place a towel between your skin and the bag. ? Leave the ice on for 20 minutes, 2 3 times a day. Activity Return to your normal activities as told by your health care provider. Ask your health care provider what activities are safe for you. Do exercises as told by your health care provider. Do not take baths, swim, or use a hot tub until your health care provider approves. Do not lift anything that is heavier than 10 lb (4.5 kg), or the limit that you are told, until your health care provider says that it is safe. General instructions Ask your health care provider if the medicine prescribed to you: ? Requires you to avoid driving or using heavy machinery. ? Can cause constipation. You may need to take actions to prevent or treat constipation, such as: ? Drink enough fluid to keep your urine pale yellow. ? Take aqkz-atj-knnbdoj or prescription medicines. ? Eat foods that are high in fiber, such as beans, whole grains, and fresh fruits and vegetables. ? Limit foods that are high in fat and processed sugars, such as fried and sweet foods. Do not use any products that contain nicotine or tobacco, such as cigarettes, e-cigarettes, and chewing tobacco. These can delay healing. If you need help quitting, ask your health care provider. Keep all follow-up visits and physical therapy appointments as told by your health care provider. This is important. Contact a health care provider if you have: A fever. Redness, swelling, or pain around your incision. Fluid or blood coming from your incision. Pus or a bad smell coming from your incision. Pain that is not controlled by your pain medicine. Increasing hoarseness or trouble swallowing. Get help right away if you have: Severe pain. Sudden numbness or weakness in your arms. Warmth, tenderness, or swelling in your calf. Chest pain. Difficulty breathing. Summary After the procedure, it is common to have neck pain, discomfort when swallowing, and slight hoarseness. Follow instructions from your health care provider about how to take care of your incision. Check your incision area every day for signs of infection. Return to your normal activities as told by your health care provider. Ask your health care provider what activities are safe for you. Contact a health care provider if you have signs of infection at your incision. This information is not intended to replace advice given to you by your health care provider. Make sure you discuss any questions you have with your health care provider. Document Released: 09/07/2016 Document Revised: 05/07/2019 Document Reviewed: 05/07/2019 [employer] Patient Education 2020 [employer]. Additional Information VACCINATE! IT SAVES LIVES! Members of the community who have not yet received the COVID-19 vaccine and would like to receive it can visit one of [facility] vaccine clinics. There are many vaccine clinic locations within the [facility]. For locations and available times, please visit https://gettheshot.coronavirus.[place].gov/. It is important to note that some COVID mobile vaccine clinics are held outdoors and may be canceled in rainy or stormy conditions. To learn more about pediatric vaccinations (ages 5-11), we invite you to visit the [facility] webpage. [email or web address] To learn more about the COVID-19 vaccine, we invite you to visit the CDC website for a list of frequently asked questions.https://www.cdc.gov/cor onavirus/2019-ncov/vaccines/faq.h tml [employer] Patient Portal Access Instructions: Stay connected with your healthcare team and access your personal medical information anytime with the [employer] Patient Portal. Please follow the directions below to create your [employer] account: 1.Access the email account you provided upon registration to the hospital/physician office.2.Look for an invitation email from [facility].3.Open the email and access the invitation link: Accept Invitation to [employer].4.Fill in the required cho to create your account. To access your account, visit [email or web address]. Click the blue button labeled Access Patient Portal and then log in with the username and password that you created in the steps above. You will be able to view your test results, lab results, a summary of your visits, upcoming appointments and more. There is also a convenient messaging option where you can send secure messages to your provider. In addition, you will have the ability to download any documents or summaries to your computer and/or send the information securely to a physician. Remember that your healthcare information is confidential, so carefully consider who you will allow to register on the [facility] Patient Portal for access to your information. You can also access the [facility] Patient Portal on the [employer] gela. Simply click on Patient Portal and then log into your account. If you would like to receive a full copy of your medical records, please contact the [facility] Medical Records Department by calling [phone], Saturday through Saturday between 8 a.m. and 4:30 p.m. HOW TO SAFELY DISPOSE OF PRESCRIPTION MEDICATIONS Please use one of the following methods to safely dispose of your unused medications. 1.Use a drug disposal kit: the drug disposal pouch allows you to safely discard your old and unused drugs. Ask your nurse to give you one when you are discharged.2.Visit a local take-back location: Many local pharmacies and police departments have programs that collect old and unwanted prescription drugs. Call your local pharmacy or go to http://Hum.Sendmail/7I5Wv1y to find one close to you.3.Make use of household items: Use cat litter or old coffee grounds to dispose medications if other options are not available. Mix your drugs with these household products, seal them in an airtight container and throw it into the garbage. Call [facility]: [phone] to be sure your drugs can be disposed of in this way. Some medicines may require a different approach.4.Never flush your medications down the toilet. IF YOU HAVE BEEN PRESCRIBED AN OPIOID FOR PAIN If you have been prescribed an opioid (such as hydrocodone, oxycodone or morphine), it is critical to understand the possible side effects and risks of opioid pain medications. Even when taken as directed, opioids can have several side effects including: Tolerance, meaning you might need to take more of a medication for the same pain relief. Nausea, vomiting and/or constipation. Sleepiness, dizziness, dry mouth, confusion, depression or itching. Physical dependence, meaning you have withdrawal symptoms when a medication is stopped, can develop within a few days. KNOW YOUR RESPONSIBILITIES It is important to know exactly how much and how often to take the opioid pain medications you are prescribed. Never take opioids in higher amounts or more often than prescribed. Do not combine opioids with alcohol or other drugs that cause drowsiness, such as benzodiazepines, also known as benzos, including diazepam and alprazolam, muscle relaxants or sleep aids. Never sell or share prescription opioids. This is illegal. Store opioids in a secure place and out of reach of others (including children, family, friends and visitors). The last page of this document has been signed and retained as a CHART COPY. Signatures Patient Education Materials Anterior Cervical Diskectomy and Fusion, Care After Medication Leaflets Percocet My discharge plan and instructions have been reviewed and explained to me and I,FRED MCKEON understand my current condition and have read and understand these discharge instructions. I have received a written copy of the plan/instructions. If I have questions, I am aware that I should contact my doctor. 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 Heart: Denies chest pain or palpitation. Musculoskeletal: The pain is fairly well-controlled to the anterior neck. States significant improvement of numbness and tingling in upper extremities. Objective Vitals and Measurements T: 36.6 C (Oral) TMIN: 36.6 C (Oral) TMAX: 36.8 C (Oral) HR: 83 RR: 18 BP: 146/96 SpO2: 93% Intake and Output 7AM Yesterday to 7AM Today Intake and Output (Last 24 hours) Intake Oral Intake 2100.00 Administration Information 800.00 Output Surgical Drain, Tube Output: 22.50 Urine Voided 2475.00 Stool Count 1.00 Total Summary Total Intake 2900.00 Total Output 2497.50 Fluid Balance 402.50 Physical Exam Vital signs are stable, afebrile. General: No acute distress. Neuro: Alert and appropriate Resp: Respirations are easy and nonlabored. Cardiac: Heart is regular rate by tibial pulses MUSC: Dressing is dry and intact to the anterior neck. Pulses are 2+. Sensation intact to light touch. No calf tenderness Weight Dosing Weight: 115.7 kg (10/22/23) Dosing Weight: 115.7 kg (10/22/23) Medications Medications (15) Active Scheduled: (5) aspirin 81 mg EC 81 mg 1 tab(s), Oral, qAM nifedipine 60 mg ER tablet (Procardia) 60 mg 1 tab(s), Oral, qAM pantoprazole 40 mg VIAL 40 mg, IV Push, qDayAC polyethylene glycol 3350 - UD packet 17 gram(s) 15 mL, Oral, qDay ramipril 10 mg Capsule 20 mg 2 cap(s), Oral, qAM Continuous: (1) Lactated Ringers 1,000 mL 1,000 mL, Intravenous, 50 mL/hr PRN: (9) acetaminophen-OXYcodone 325 mg-5 mg Tablet 1 tab(s), Oral, q4h acetaminophen-OXYcodone 325 mg-5 mg Tablet 2 tab(s), Oral, q4h Al hydrox/Mg hydrox/simethicone 200-200-20 mg/5 mL Susp UD 30 mL, Oral, q2h dextrose 50% Solution Disp syringe 50 mL 12.5 gram(s) 25 mL, IV Push, AsDirected HYDROmorphone 0.5 mg/0.5 mL PF syringe 0.25 mg 0.25 mL, IV Push, q3h hydromorphone 1 mg/mL (1mL) INJ 1 mg 1 mL, IV Push, q4h magnesium hydroxide 8% Suspension 30 mL UD 30 mL, Oral, qHS ondansetron 2 mg/ 1 mL 2 mL INJ 4 mg 2 mL, IV Push, q4h ondansetron 4 mg tablet 4 mg 1 tab(s), Oral, q6h Lab Results No 36 Hour Lab Data EKG No qualifying data available. Time Spent Assessment/Plan Other spondylosis with radiculopathy, cervical region Patient doing well today. Vital signs are stable and has been afebrile. Will DC drain Planning Discharge home today -Follow-up with Dr. Bae in 2 weeks at [facility]. Digitally Signed by KARTHIK LYNCH PA-C on 10/25/2023 01:56 PM Digitally Signed by THO BAE MD [facility] 10-25-2023 Note Date of Service 10/25/2023 Chief Complaint Neck stiffness Subjective This 73-year-old patient patient with a past medical history of arthritis, degenerative disc disease, hypertension and cervical spondylosis with radiculopathy is postop day 3 anterior cervical discectomy and fusion with Dr. Bae. Hospitalist following for medical management. On exam, patient sitting up in a chair. No signs of distress. Overnight, he had increased neck pain which improved with pain medication. Blood pressure elevations seem to coincide with pain. Patient states his SBP typically runs in the 130s 140s at home. Denies chest pain or shortness of breath. Denies nausea or abdominal pain. He had a bowel movement this morning. Patient likely to be discharged today. Objective Vitals and Measurements T: 36.6 C (Oral) TMIN: 36.6 C (Oral) TMAX: 36.8 C (Oral) HR: 83 RR: 18 BP: 146/96 SpO2: 93% Intake and Output 7AM Yesterday to 7AM Today Intake and Output (Last 24 hours) Intake Oral Intake 2100.00 Administration Information 800.00 Output Surgical Drain, Tube Output: 52.50 Urine Voided 2525.00 Stool Count 1.00 Total Summary Total Intake 2900.00 Total Output 2577.50 Fluid Balance 322.50 Physical Exam Vitals Signs(Last 24 hrs)__ Last Charted Minimum Maximum Temp 36.6(OCT 24 08:27) 36.6(OCT 24:) 36.8(Sep 14:58) SBP H 146(OCT 24 08:46) 127(Sep 14:58) H 147(OCT 24:) DBP H 96(OCT 24 08:46) 68(Sep 23:19) H 96(OCT 24:) Physical Exam General: No acute distress. Alert and Appropriate. Skin: No rash. Warm, Dry, Intact Neck: Supple. No lymphadenopathy, thyromegaly noted. Wearing c-collar, BERNARDINO drain noted. Anterior neck incision noted, dressing intact. Lungs: Bilaterally diminished breath sounds with no crepitation or wheeze. Unlabored Cardiovascular: Heart is regular rhythm, S1S2, No extra-audible heart tones Abdomen: Abdomen is soft, nontender. Rounded/Obese. Bowel sounds positive all four quadrants. Extremities: No clubbing, cyanosis or edema. Peripheral pulses palpable. No calf tenderness. Adequate peripheral circulation. Neurological: The patient is awake, oriented to time, people and place. Following simple commands, moving all extremities. Weight Dosing Weight: 115.7 kg (10/22/23) Dosing Weight: 115.7 kg (10/22/23) Medications Medications (15) Active Scheduled: (5) aspirin 81 mg EC 81 mg 1 tab(s), Oral, qAM nifedipine 60 mg ER tablet (Procardia) 60 mg 1 tab(s), Oral, qAM pantoprazole 40 mg VIAL 40 mg, IV Push, qDayAC polyethylene glycol 3350 - UD packet 17 gram(s) 15 mL, Oral, qDay ramipril 10 mg Capsule 20 mg 2 cap(s), Oral, qAM Continuous: (1) Lactated Ringers 1,000 mL 1,000 mL, Intravenous, 50 mL/hr PRN: (9) acetaminophen-OXYcodone 325 mg-5 mg Tablet 1 tab(s), Oral, q4h acetaminophen-OXYcodone 325 mg-5 mg Tablet 2 tab(s), Oral, q4h Al hydrox/Mg hydrox/simethicone 200-200-20 mg/5 mL Susp UD 30 mL, Oral, q2h dextrose 50% Solution Disp syringe 50 mL 12.5 gram(s) 25 mL, IV Push, AsDirected HYDROmorphone 0.5 mg/0.5 mL PF syringe 0.25 mg 0.25 mL, IV Push, q3h hydromorphone 1 mg/mL (1mL) INJ 1 mg 1 mL, IV Push, q4h magnesium hydroxide 8% Suspension 30 mL UD 30 mL, Oral, qHS ondansetron 2 mg/ 1 mL 2 mL INJ 4 mg 2 mL, IV Push, q4h ondansetron 4 mg tablet 4 mg 1 tab(s), Oral, q6h Lab Results No 36 Hour Lab Data EKG No qualifying data available. Assessment/Plan 1. HTN (hypertension) 2. Other spondylosis with radiculopathy, cervical region Hypertension at baseline. Resume home ramipril and Procardia at discharge. We will sign off. Please contact us with any questions or concerns. Time Spent 25 minutes Digitally Signed by DAVID KRISHNAMURTHY on 10/25/2023 11:32 AM [facility] 10-24-2023 Nurse Progress note All student meds verified before administration Digitally Signed by Marichuy Andrade RN on 10/24/2023 04:28 PM [facility] 10-24-2023 Note Date of Service 10/24/2023 Chief Complaint Neck pain Subjective This 73-year-old patient patient with a past medical history of arthritis, degenerative disc disease, hypertension and cervical spondylosis with radiculopathy is postop day 2 anterior cervical discectomy and fusion with Dr. Bae. Sitting comfortably in a chair today. at the bedside. Reports intermittent neck pain, worse than yesterday. He has not relied on as needed pain medications. Wearing c-collar, BERNARDINO drain in place. He denies chest pain or shortness of breath. Mancuso catheter discontinued yesterday. He is voiding without difficulty. Objective Vitals and Measurements T: 36.6 C (Oral) TMIN: 36.5 C (Oral) TMAX: 36.8 C (Oral) HR: 94 RR: 20 BP: 161/97 SpO2: 94% Intake and Output 7AM Yesterday to 7AM Today Intake and Output (Last 24 hours) Intake Oral Intake 850.00 Administration Information 251.67 Output Surgical Drain, Tube Output: 105.00 Urine Voided 2350.00 Urinary Catheter Output: 350.00 Stool Count 1.00 Total Summary Total Intake 1101.67 Total Output 2805.00 Fluid Balance -1703.33 Physical Exam Vitals Signs(Last 24 hrs)__ Last Charted Minimum Maximum Temp 36.6(Sep 08:05) 36.6(Sep 08:05) 36.5(OCT 23 18:12) SBP H 161(Sep 09:21) H 161(Sep 01:10) H 165(OCT 23 18:12) DBP H 97(Sep 09:21) 89(Sep 01:10) H 97(Sep 08:05) Physical Exam General: No acute distress. Alert and Appropriate. Cervical collar in place, BERNARDINO drain noted. Lungs: Bilaterally diminished breath sounds with no crepitation or wheeze. Unlabored Cardiovascular: Heart is regular rhythm, S1S2, No extra-audible heart tones Abdomen: Abdomen is soft, nontender. Rounded/Obese. Bowel sounds positive all four quadrants. Extremities: No clubbing, cyanosis or edema. Peripheral pulses palpable. No calf tenderness. Adequate peripheral circulation. Neurological: The patient is awake, oriented to time, people and place. Following simple commands, moving all extremities. Weight Dosing Weight: 115.7 kg (10/22/23) Dosing Weight: 115.7 kg (10/22/23) Medications Medications (16) Active Scheduled: (6) aspirin 81 mg EC 81 mg 1 tab(s), Oral, qAM ceFAZolin syringe 2 g 20 mL, IV Push (INT), q8hr nifedipine 60 mg ER tablet (Procardia) 60 mg 1 tab(s), Oral, qAM pantoprazole 40 mg VIAL 40 mg, IV Push, qDayAC polyethylene glycol 3350 - UD packet 17 gram(s) 15 mL, Oral, qDay ramipril 10 mg Capsule 20 mg 2 cap(s), Oral, qAM Continuous: (1) Lactated Ringers 1,000 mL 1,000 mL, Intravenous, 50 mL/hr PRN: (9) acetaminophen-OXYcodone 325 mg-5 mg Tablet 1 tab(s), Oral, q4h acetaminophen-OXYcodone 325 mg-5 mg Tablet 2 tab(s), Oral, q4h Al hydrox/Mg hydrox/simethicone 200-200-20 mg/5 mL Susp UD 30 mL, Oral, q2h dextrose 50% Solution Disp syringe 50 mL 12.5 gram(s) 25 mL, IV Push, AsDirected HYDROmorphone 0.5 mg/0.5 mL PF syringe 0.25 mg 0.25 mL, IV Push, q3h hydromorphone 1 mg/mL (1mL) INJ 1 mg 1 mL, IV Push, q4h magnesium hydroxide 8% Suspension 30 mL UD 30 mL, Oral, qHS ondansetron 2 mg/ 1 mL 2 mL INJ 4 mg 2 mL, IV Push, q4h ondansetron 4 mg tablet 4 mg 1 tab(s), Oral, q6h Lab Results 10/23 04:22 WBC: 12.8 H Hgb: 14.8 Hct: 43.2 Platelet: 268 Neutrophil %: 84.0 H Glucose Level: 161 H Sodium Level: 137 Potassium Level: 4.3 BUN: 20.0 Creatinine Lvl (s): 0.74 EKG No qualifying data available. Assessment/Plan 1. HTN (hypertension) 2. Other spondylosis with radiculopathy, cervical region Postop day [address] Bae. Nausea has improved. Tolerating liquid diet. Advance to regular diet if okay with surgery. Continue MiraLAX. No bowel movement since surgery. Continue to wean oxygen to maintain saturation greater than 92%. Hypertension blood pressure more elevated today, increased pain is also a factor. ramipril increased. Continue Procardia. Plan of care discussed with patient. All questions answered. Patient verbalized understanding is agreeable to plan of care. Discussed with my collaborating physician Dr. Kitchen. This dictation was performed using voice recognition software and may include grammatical and/or spelling errors. Time Spent 35 minutes Digitally Signed by DAVID KRISHNAMURTHY on 10/24/2023 12:26 PM [facility] 10-24-2023 Note Date of Service 10/24/2023 Chief Complaint Neck pain Subjective This 73-year-old patient patient with a past medical history of arthritis, degenerative disc disease, hypertension and cervical spondylosis with radiculopathy is postop day 2 anterior cervical discectomy and fusion with Dr. Bae. Sitting comfortably in a chair today. at the bedside. Reports intermittent neck pain, worse than yesterday. He has not relied on as needed pain medications. Wearing c-collar, BERNARDINO drain in place. He denies chest pain or shortness of breath. Mancuso catheter discontinued yesterday. He is voiding without difficulty. Objective Vitals and Measurements T: 36.6 C (Oral) TMIN: 36.5 C (Oral) TMAX: 36.8 C (Oral) HR: 94 RR: 20 BP: 161/97 SpO2: 94% Intake and Output 7AM Yesterday to 7AM Today Intake and Output (Last 24 hours) Intake Oral Intake 850.00 Administration Information 251.67 Output Surgical Drain, Tube Output: 105.00 Urine Voided 2350.00 Urinary Catheter Output: 350.00 Stool Count 1.00 Total Summary Total Intake 1101.67 Total Output 2805.00 Fluid Balance -1703.33 Physical Exam Vitals Signs(Last 24 hrs)__ Last Charted Minimum Maximum Temp 36.6(Sep 08:05) 36.6(Sep 08:05) 36.5(OCT 23 18:12) SBP H 161(Sep 09:21) H 161(Sep 01:10) H 165(OCT 23 18:12) DBP H 97(Sep 09:21) 89(Sep 01:10) H 97(Sep 08:05) Physical Exam General: No acute distress. Alert and Appropriate. Cervical collar in place, BERNARDINO drain noted. Lungs: Bilaterally diminished breath sounds with no crepitation or wheeze. Unlabored Cardiovascular: Heart is regular rhythm, S1S2, No extra-audible heart tones Abdomen: Abdomen is soft, nontender. Rounded/Obese. Bowel sounds positive all four quadrants. Extremities: No clubbing, cyanosis or edema. Peripheral pulses palpable. No calf tenderness. Adequate peripheral circulation. Neurological: The patient is awake, oriented to time, people and place. Following simple commands, moving all extremities. Weight Dosing Weight: 115.7 kg (10/22/23) Dosing Weight: 115.7 kg (10/22/23) Medications Medications (16) Active Scheduled: (6) aspirin 81 mg EC 81 mg 1 tab(s), Oral, qAM ceFAZolin syringe 2 g 20 mL, IV Push (INT), q8hr nifedipine 60 mg ER tablet (Procardia) 60 mg 1 tab(s), Oral, qAM pantoprazole 40 mg VIAL 40 mg, IV Push, qDayAC polyethylene glycol 3350 - UD packet 17 gram(s) 15 mL, Oral, qDay ramipril 10 mg Capsule 20 mg 2 cap(s), Oral, qAM Continuous: (1) Lactated Ringers 1,000 mL 1,000 mL, Intravenous, 50 mL/hr PRN: (9) acetaminophen-OXYcodone 325 mg-5 mg Tablet 1 tab(s), Oral, q4h acetaminophen-OXYcodone 325 mg-5 mg Tablet 2 tab(s), Oral, q4h Al hydrox/Mg hydrox/simethicone 200-200-20 mg/5 mL Susp UD 30 mL, Oral, q2h dextrose 50% Solution Disp syringe 50 mL 12.5 gram(s) 25 mL, IV Push, AsDirected HYDROmorphone 0.5 mg/0.5 mL PF syringe 0.25 mg 0.25 mL, IV Push, q3h hydromorphone 1 mg/mL (1mL) INJ 1 mg 1 mL, IV Push, q4h magnesium hydroxide 8% Suspension 30 mL UD 30 mL, Oral, qHS ondansetron 2 mg/ 1 mL 2 mL INJ 4 mg 2 mL, IV Push, q4h ondansetron 4 mg tablet 4 mg 1 tab(s), Oral, q6h Lab Results 10/23 04:22 WBC: 12.8 H Hgb: 14.8 Hct: 43.2 Platelet: 268 Neutrophil %: 84.0 H Glucose Level: 161 H Sodium Level: 137 Potassium Level: 4.3 BUN: 20.0 Creatinine Lvl (s): 0.74 EKG No qualifying data available. Assessment/Plan 1. HTN (hypertension) 2. Other spondylosis with radiculopathy, cervical region Postop day [address] Bae. Nausea has improved. Tolerating liquid diet. Advance to regular diet if okay with surgery. Continue MiraLAX. No bowel movement since surgery. Continue to wean oxygen to maintain saturation greater than 92%. Hypertension blood pressure more elevated today, increased pain is also a factor. ramipril increased. Continue Procardia. Plan of care discussed with patient. All questions answered. Patient verbalized understanding is agreeable to plan of care. Discussed with my collaborating physician Dr. Kitchen. This dictation was performed using voice recognition software and may include grammatical and/or spelling errors. Time Spent 35 minutes Digitally Signed by DAVID KRISHNAMURTHY on 10/24/2023 12:26 PM [facility] 10-24-2023 Surgery Hospital Progress note Post operative day #2: Patient exhibits no new nor progressive motor or sensory deficits. 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 The patient has no focal motor or sensory deficits. He does have some mild dysphagia but this is improved since yesterday. My suspicion is that he will be able to be discharged to home (as opposed to care home facility or rehab facility) tomorrow, 10/25/2023. Antecedent to discharge the retropharyngeal drain will be removed. Detailed verbal discharge instructions have been relayed to the patient by me. He demonstrates understanding. He understands that he will need to wear his cervical collar for at least the next 2 weeks. It may be removed for showering. It should then be reapplied. A dry sterile dressing can be removed for showering and the dressing may be reapplied after showering if the patient desires. It is also appropriate for the patient to not have the wound covered. Digitally Signed by THO BAE MD on 10/24/2023 08:31 AM [facility] 10-23-2023 Note Date of Service 10/23/2023 Chief Complaint Mancuso catheter is uncomfortable, nausea last evening Subjective Patient is a 73-year-old male with past medical history of arthritis, degenerative disc disease, hypertension and spondylosis with radiculopathy, spinal stenosis and urinary calculus who is postop anterior cervical discectomy/fusion [address] Bae. Hospitalist following for medical management. Patient seen and evaluated with family at the bedside. Patient's major complaint is discomfort due to having urinary catheter in place. Also reports postoperative nausea last evening. Is tolerating a liquid diet today. Objective Vitals and Measurements T: 36.8 C (Temporal Artery) TMIN: 36.5 C (Temporal Artery) TMAX: 37.23 C HR: 72(Monitored) RR: 20 BP: 158/94 SpO2: 96% HT: 180.3 cm WT: 115.7 kg BMI: 35.59 Intake and Output 7AM Yesterday to 7AM Today Intake and Output (Last 24 hours) Intake Oral Intake 80.00 Administration Information 2981.51 Output Surgical Drain, Tube Output: 110.00 Urinary Catheter Output: 1375.00 Intra-Op Urine Catheter 350.00 Intra-Op EBL 25.00 Stool Count 0.00 Emesis Count 1.00 Total Summary Total Intake 3061.51 Total Output 1860.00 Fluid Balance 1201.51 Physical Exam Constitutional: Patient is alert and oriented x3. In no acute distress. ENT: hearing grossly intact, mucous membranes moist, cervical collar inplace, drain inplace. Respiratory: Breathing nonlabored, lungs clear to auscultation bilaterally. Heart: Regular rate and rhythm. S1 S2 heard. GI: Bowel sounds x4 quadrants. No rebound tenderness or guarding. Neuro: speech clear. CHANG equally. memory intact Skin: no rashes or lesions noted. skin warm, dry and intact. Weight Dosing Weight: 115.7 kg (10/22/23) Dosing Weight: 115.7 kg (10/22/23) Medications Medications (16) Active Scheduled: (5) aspirin 81 mg EC 81 mg 1 tab(s), Oral, qAM ceFAZolin syringe 2 g 20 mL, IV Push (INT), q8hr nifedipine 60 mg ER tablet (Procardia) 60 mg 1 tab(s), Oral, qAM pantoprazole 40 mg VIAL 40 mg, IV Push, qDayAC ramipril 10 mg Capsule 10 mg 1 cap(s), Oral, qAM Continuous: (2) Lactated Ringers 1,000 mL 1,000 mL, Intravenous, 50 mL/hr lidocaine 2 g/500 mL D5W 2,000 mg [1 mg/kg/hr] + Dextrose 5% Premix Diluent 500 mL 500 mL, Intravenous, 28.93 mL/hr PRN: (9) acetaminophen-OXYcodone 325 mg-5 mg Tablet 1 tab(s), Oral, q4h acetaminophen-OXYcodone 325 mg-5 mg Tablet 2 tab(s), Oral, q4h Al hydrox/Mg hydrox/simethicone 200-200-20 mg/5 mL Susp UD 30 mL, Oral, q2h dextrose 50% Solution Disp syringe 50 mL 12.5 gram(s) 25 mL, IV Push, AsDirected HYDROmorphone 0.5 mg/0.5 mL PF syringe 0.25 mg 0.25 mL, IV Push, q3h hydromorphone 1 mg/mL (1mL) INJ 1 mg 1 mL, IV Push, q4h magnesium hydroxide 8% Suspension 30 mL UD 30 mL, Oral, qHS ondansetron 2 mg/ 1 mL 2 mL INJ 4 mg 2 mL, IV Push, q4h ondansetron 4 mg tablet 4 mg 1 tab(s), Oral, q6h Lab Results 10/23 04:22 WBC: 12.8 H Hgb: 14.8 Hct: 43.2 Platelet: 268 Neutrophil %: 84.0 H Glucose Level: 161 H Sodium Level: 137 Potassium Level: 4.3 BUN: 20.0 Creatinine Lvl (s): 0.74 Imaging Results and Diagnostics XR Fluoro 2 Hrs Tech Time Result Date: October 22, 2023 Verified By: JUNAID MARTÍNEZ MD CLINICAL STATEMENT: IMPRESSION: Intraprocedural fluoroscopic spot images as above. See separate procedurereport for more information. I have personally reviewed the images of this examination and agree with theresident's findings and interpretation. EKG No qualifying data available. Assessment/Plan 1. HTN (hypertension) 2. Nausea 3. Other spondylosis with radiculopathy, cervical region HTN- Continue ramipril and Procardia. Blood pressure slightly elevated today. Nausea postoperatively last evening complained of nausea, tolerating liquid diet. As needed Zofran. Seems to be improved. Add miralax for bowel regimen. Mancuso catheter being removed today. Management of spondylosis with radiculopathy per Dr. Bae. Pain management and DVT prophylaxis per primary team Discussed w/ Dr. Kitchen. Time Spent A total of 35 minutes reviewing patient's diagnostic, labs/tests, seeing and examining the patient and documenting in the medical record, please see assessment for further details. Digitally Signed by ERIKA KEMP on 10/23/2023 03:59 PM [facility] 10-23-2023 Orthopaedic surgery Progress note Date of Service 10/23/23 Chief Complaint Neck Pain Subjective 83-year-old male status postop day 1 from an anterior C3-C7 fusion. He states pain was well-controlled overnight. Pain, numbness and tingling that was present prior to surgery has significantly improved. No any new symptoms or concerns at this time. Objective Vitals and Measurements T: 36.8 C (Temporal Artery) TMIN: 35.42 C TMAX: 37.23 C HR: 72(Monitored) RR: 20 BP: 158/94 SpO2: 96% HT: 180.3 cm WT: 115.7 kg BMI: 35.59 Intake and Output 7AM Yesterday to 7AM Today Intake and Output (Last 24 hours) Intake Oral Intake 80.00 Administration Information 3981.51 Output Surgical Drain, Tube Output: 75.00 Urinary Catheter Output: 1025.00 Intra-Op Urine Catheter 350.00 Intra-Op EBL 25.00 Stool Count 0.00 Emesis Count 1.00 Total Summary Total Intake 4061.51 Total Output 1475.00 Fluid Balance 2586.51 Physical Exam Vital signs are stable, afebrile. General: No acute distress. Neuro: Alert and appropriate. Resp: Respirations are easy and unlabored. Cardiac: Heart is regular rate by radial pulses. MUSC: Dressing is dry and intact. Pulses are 2+. Sensation intact to light touch. No calf tenderness. Good strength bilateral upper extremities. Weight Dosing Weight: 115.7 kg (10/22/23) Dosing Weight: 115.7 kg (10/22/23) Medications Medications (16) Active Scheduled: (5) aspirin 81 mg EC 81 mg 1 tab(s), Oral, qAM ceFAZolin syringe 2 g 20 mL, IV Push (INT), q8hr nifedipine 60 mg ER tablet (Procardia) 60 mg 1 tab(s), Oral, qAM pantoprazole 40 mg VIAL 40 mg, IV Push, qDayAC ramipril 10 mg Capsule 10 mg 1 cap(s), Oral, qAM Continuous: (2) Lactated Ringers Infusion 1000 mL 1,000 mL, Intravenous, 50 mL/hr lidocaine 2 g/500 mL D5W 2,000 mg [1 mg/kg/hr] + Dextrose 5% Premix Diluent 500 mL 500 mL, Intravenous, 28.93 mL/hr PRN: (9) acetaminophen-OXYcodone 325 mg-5 mg Tablet 1 tab(s), Oral, q4h acetaminophen-OXYcodone 325 mg-5 mg Tablet 2 tab(s), Oral, q4h Al hydrox/Mg hydrox/simethicone 200-200-20 mg/5 mL Susp UD 30 mL, Oral, q2h dextrose 50% Solution Disp syringe 50 mL 12.5 gram(s) 25 mL, IV Push, AsDirected HYDROmorphone 0.5 mg/0.5 mL PF syringe 0.25 mg 0.25 mL, IV Push, q3h hydromorphone 1 mg/mL (1mL) INJ 1 mg 1 mL, IV Push, q4h magnesium hydroxide 8% Suspension 30 mL UD 30 mL, Oral, qHS ondansetron 2 mg/ 1 mL 2 mL INJ 4 mg 2 mL, IV Push, q4h ondansetron 4 mg tablet 4 mg 1 tab(s), Oral, q6h Lab Results 10/23 04:22 WBC: 12.8 H Hgb: 14.8 Hct: 43.2 Platelet: 268 Neutrophil %: 84.0 H Glucose Level: 161 H Sodium Level: 137 Potassium Level: 4.3 BUN: 20.0 Creatinine Lvl (s): 0.74 EKG No qualifying data available. Assessment/Plan Other spondylosis with radiculopathy, cervical region Patient doing well today. Vital signs are stable and has been afebrile. H&H today is 14.8/43.2 PT/OT Will DC Mancuso catheter Decreased IV fluids to 50 mL/hr Orders: Lactated Ringers Infusion 1000 mL, Start: 10/23/23 12:02:00 EST, Rate: 50 mL/hr, 10/23/23 12:02:00 EST Digitally Signed by KARTHIK LYNCH PA-C on 10/23/2023 12:16 PM Digitally Signed by THO BAE MD [facility] 10-22-2023 Consult note Date of Service 10/22/2023 Reason for Consultation Medical management Referring Physician Dr Tho Bae History of Present Illness This is a 73-year-old male patient with a past medical history significant for arthritis, degenerative disc disease, hypertension, spondylosis with radiculopathy, spinal stenosis and urinary calculus. He is currently status post anterior cervical discectomy/fusion [address] Tho Bae. The hospitalist have been consulted for his postoperative medical management. Mr Mckeon is seen resting in bed on 6 E. he is awake and alert. He is visiting with his family members at the bedside who have stated that he is concerned that somebody gave him medications he should not have had during OR. 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 He is alert and oriented to person place and time, and is extra cautious with nursing staff. He is agreeable to treatments and medications. He denies any chest pain, palpitations, wheezing or shortness of breath. Currently wearing 3 L nasal cannula with 99% saturation. He denies any abdominal pain, nausea, vomiting and is tolerating sips of clears with IV fluids infusing. Per family he has been in his usual state of health, denies fever, chills or known sick contacts. Pretesting blood work reviewed from 10/08/2023 shows WBC 7.6, hemoglobin 15.7, hematocrit 45.5%, platelets 270, INR 1.0. Chemistry profile shows glucose 100, sodium 141, potassium 4.8, chloride 109, BUN 23, creatinine 0.94, calcium 9.6, GFR greater than 60. EKG reviewed from 10/08/2023 shows sinus rhythm ventricular rate of 77. Data collection done by chart review, discussion with patient and family at the bedside, nursing staff. Review of Systems I reviewed constitutional, HEENT, cardiovascular, respiratory, GI, , skin, musculoskeletal, neurologic, hematologic, and psychiatric. All systems reviewed and are negative except as noted above in the HPI. Physical Exam Vitals and Measurements T: 36.7 C (Temporal Artery) TMIN: 35.42 C TMAX: 37.23 C HR: 97(Monitored) RR: 20 BP: 148/96 SpO2: 99% HT: 180.3 cm WT: 115.7 kg BMI: 35.59 Weight Dosing Weight: 115.7 kg (10/22/23) Dosing Weight: 115.7 kg (10/22/23) Physical Exam General: No acute distress. Alert and Appropriate Skin: No rash. Warm, Dry, Intact HEENT: Head is normocephalic and atraumatic. No lesions. Pupils equal in size. Neck: Supple. Cervical collar on and intact. Lungs: Bilaterally clear breath sounds with no crepitation or wheeze. Unlabored Cardiovascular: Heart is regular rhythm, S1S2, No extra-audible heart tones Abdomen: Abdomen is soft, nontender. Rounded/obese. Bowel sounds hypoactive. Extremities: No clubbing, cyanosis or edema. Peripheral pulses palpable. No numbness/tingling. Neurological: The patient is awake, oriented to time, people and place. Following simple commands, moving all extremities. Lab Results No 36 Hour Lab Data Assessment/Plan 1. High blood pressure Only 148/96, resume home medications ramipril, Procardia with hold parameters am labs for kidney function, electrolytes 2. Other spondylosis with radiculopathy, cervical region OR day for posterior anterior cervical discectomy/fusion on 3 levels per primary team PT/OT evaluate and treat DVT and pain prophylaxis per primary team Labs and diagnostics as noted in HPI Thank you for requesting our participation in the care of your patient. We will continue to follow during hospitalization. Document transcribed with voice recognition and may contain typographical errors Orders: Lactated Ringers Infusion 1,000 mL, Start: 10/22/23 5:00:00 EST, Stop date 10/23/23 7:00:00 EST, Rate: 100 mL/hr, 10/22/23 5:00:00 EST Urinalysis w/ C&S if Indicated Problem List/Past Medical History Ongoing Arthritis Back pain DDD (degenerative disc disease) Glasses High blood pressure Obesity Spinal stenosis Weakness Historical Urinary calculus Procedure/Surgical History Fusion of lumbar spine: 2014 Arthroscopy of shoulder Colonoscopy Medications Inpatient aspirin 81 mg oral delayed release tablet, 81 mg= 1 tab(s), Oral, qAM Dextrose 50% IV Push, 12.5 gram(s)= 25 mL, IV Push, AsDirected, PRN Dilaudid, 1 mg= 1 mL, IV Push, q4h, PRN Dilaudid, 0.25 mg= 0.25 mL, IV Push, q3h, PRN Kefzol, 2 gram(s)= 20 mL, IV Push (INT), q8hr Lidocaine for IV 2,000 mg [1 mg/kg/hr] + Dextrose 5% Premix Diluent 500 mL LR 1,000 mL, 1000 mL, Intravenous Maalox, 30 mL, Oral, q2h, PRN Milk of Magnesia, 30 mL, Oral, qHS, PRN Percocet 325/5, 1 tab(s), Oral, q4h, PRN Percocet 325/5, 2 tab(s), Oral, q4h, PRN Procardia XL, 60 mg= 1 tab(s), Oral, qAM Protonix, 40 mg, IV Push, qDayAC ramipril, 10 mg= 1 cap(s), Oral, qAM Zofran, 4 mg= 2 mL, IV Push, q4h, PRN Zofran, 4 mg= 1 tab(s), Oral, q6h, PRN Home aspirin 81 mg oral delayed release tablet, 81 mg= 1 tab(s), Oral, qAM, On hold for Surgery Centrum Silver Men's oral tablet, 1 tab(s), Oral, qDay, On hold for Surgery Magnesium 250 mg tablet, 500 mg= 2 tab(s), Oral, qDay, On hold for Surgery mupirocin 2% topical ointment, 1 gela, Topical, BID NIFEdipine (Eqv-Procardia XL) 60 mg oral tablet, extended release, 1 tab(s), Oral, qAM ramipril 10 mg oral capsule, 1 cap(s), Oral, qAM sulindac 200 mg oral tablet, 200 mg= 1 tab(s), Oral, BID, PRN, On hold for Surgery turmeric 1000 mg oral capsule, 1000 mg= 1 cap(s), Oral, Daily, On hold for Surgery Tylenol 500 mg oral tablet, 1000 mg= 2 tab(s), Oral, q4h, PRN Vicks Sinex Severe 0.05% nasal spray, 1 spray(s), Nostril, each, BID, PRN, On hold for Surgery Vitamin D3, 50 mcg= 1 tab(s), Oral, Daily, On hold for Surgery Vitamin D3, 50 mcg= 1 tab(s), Oral, Daily, On hold for Surgery Vitamin K2 100 mcg oral tablet, 200 mcg= 2 tab(s), Oral, qDay, On hold for Surgery Allergies NKA Social History Smoking Status - 09/07/2014 Former smoker Alcohol Use: Current. Type: Beer. Frequency: 1-2 times per week., 10/08/2023 Home/Environment Living situation: Home/Independent. Safe place to go: Yes. Domestic Concerns: None. Lives In: Single level home., 10/08/2023 Substance Abuse Use: Never., 10/08/2023 Tobacco Nicotine Use: Former smoker, quit more than 30 days ago. Type: Cigarettes. Started at age: 21 Years. Stopped at age: 51 Years., 10/08/2023 Family History Arthritis: Mother. Cancer: Father. High blood pressure: Father. Stroke: Mother. Immunizations SARS-CoV-2 mRNA (tozinameran) vaccine: 0 unknown unit (12/20/20) SARS-CoV-2 mRNA (tozinameran) vaccine: 0 unknown unit (11/29/20) Digitally Signed by DILLON MCKEON on 10/22/2023 09:39 PM [facility] 10-22-2023 Nurse Progress note Pt is refusing all vitals/medication. Digitally Signed by Ursula Quispe LPN on 10/22/2023 08:28 PM [facility] 10-22-2023 Nurse Progress note Pt is refusing vitals Digitally Signed by Ursula Quispe LPN on 10/22/2023 08:23 PM [facility] 10-22-2023 Anesthesiology Consult note Patient: FRED MCKEON Age: 73 years Sex: Male : 1950 Associated Diagnoses: None Author: JENNIFER RIVERA MD Postoperative Information Post Operative Info: Post op day: Post Anesthesia Care Unit. Patient location: PACU. Assessment Postanesthesia assessment Vitals: Vital signs from flowsheet : Vital Signs 10/22/2023 19:40 EST Temperature Temporal Artery 36.7 DegC Heart Rate Monitored 97 bpm Respiratory Rate 20 br/min Systolic Blood Pressure Non-Invasive 148 mmHg HI Diastolic Blood Pressure Non-Invasive 96 mmHg HI Mean Arterial Pressure (NBP) 110 mmHg 10/22/2023 19:30 EST Heart Rate Monitored 98 bpm Respiratory Rate 20 br/min Systolic Blood Pressure Non-Invasive 138 mmHg Diastolic Blood Pressure Non-Invasive 95 mmHg HI 10/22/2023 19:14 EST Apical Heart Rate 117 bpm HI Heart Rate Monitored 117 bpm HI Respiratory Rate 20 br/min Systolic Blood Pressure Non-Invasive 141 mmHg HI Systolic Blood Pressure Non-Invasive 141 mmHg HI Diastolic Blood Pressure Non-Invasive 98 mmHg HI Diastolic Blood Pressure Non-Invasive 98 mmHg HI Mean Arterial Pressure (NBP) 113 mmHg 10/22/2023 18:45 EST Heart Rate Monitored 119 bpm HI Respiratory Rate 20 br/min Systolic Blood Pressure Non-Invasive 150 mmHg HI Diastolic Blood Pressure Non-Invasive 85 mmHg Mean Arterial Pressure (NBP) 106 mmHg 10/22/2023 18:32 EST Heart Rate Monitored 119 bpm HI Respiratory Rate 16 br/min Systolic Blood Pressure Non-Invasive 148 mmHg HI Diastolic Blood Pressure Non-Invasive 91 mmHg HI Mean Arterial Pressure (NBP) 108 mmHg 10/22/2023 18:14 EST Heart Rate Monitored 113 bpm HI Respiratory Rate 16 br/min Systolic Blood Pressure Non-Invasive 148 mmHg HI Diastolic Blood Pressure Non-Invasive 91 mmHg HI Mean Arterial Pressure (NBP) 104 mmHg 10/22/2023 18:00 EST Heart Rate Monitored 101 bpm HI Respiratory Rate 16 br/min Systolic Blood Pressure Non-Invasive 128 mmHg Diastolic Blood Pressure Non-Invasive 80 mmHg Mean Arterial Pressure (NBP) 96 mmHg 10/22/2023 17:43 EST Temperature Temporal Artery 36.5 DegC Heart Rate Monitored 100 bpm Respiratory Rate 16 br/min Systolic Blood Pressure Non-Invasive 141 mmHg HI Diastolic Blood Pressure Non-Invasive 87 mmHg Mean Arterial Pressure (NBP) 102 mmHg 10/22/2023 17:35 EST Respiratory Rate - Anes 21 br/min br/min 10/22/2023 17:30 EST Heart Rate Monitored 97 bpm bpm Respiratory Rate - Anes 21 br/min br/min 10/22/2023 17:26 EST Systolic Blood Pressure Non-Invasive 135 mmHg mmHg Diastolic Blood Pressure Non-Invasive 86 mmHg mmHg 10/22/2023 17:25 EST Heart Rate Monitored 90 bpm bpm Respiratory Rate - Anes 20 br/min br/min 10/22/2023 17:21 EST Systolic Blood Pressure Non-Invasive 128 mmHg mmHg Diastolic Blood Pressure Non-Invasive 88 mmHg mmHg 10/22/2023 17:20 EST Heart Rate Monitored 84 bpm bpm Respiratory Rate - Anes 20 br/min br/min 10/22/2023 17:16 EST Systolic Blood Pressure Non-Invasive 119 mmHg mmHg Diastolic Blood Pressure Non-Invasive 82 mmHg mmHg 10/22/2023 17:15 EST Heart Rate Monitored 86 bpm bpm Respiratory Rate - Anes 18 br/min br/min 10/22/2023 17:11 EST Systolic Blood Pressure Non-Invasive 114 mmHg mmHg Diastolic Blood Pressure Non-Invasive 77 mmHg mmHg 10/22/2023 17:10 EST Temperature (Route Not Specified) 37.23 DegC DegC Heart Rate Monitored 84 bpm bpm Respiratory Rate - Anes 24 br/min br/min 10/22/2023 17:06 EST Systolic Blood Pressure Non-Invasive 117 mmHg mmHg Diastolic Blood Pressure Non-Invasive 82 mmHg mmHg 10/22/2023 17:05 EST Temperature (Route Not Specified) 37.2 DegC DegC Heart Rate Monitored 85 bpm bpm Respiratory Rate - Anes 19 br/min br/min 10/22/2023 17:01 EST Systolic Blood Pressure Non-Invasive 117 mmHg mmHg Diastolic Blood Pressure Non-Invasive 78 mmHg mmHg 10/22/2023 17:00 EST Temperature (Route Not Specified) 37.17 DegC DegC Heart Rate Monitored 85 bpm bpm Respiratory Rate - Anes 19 br/min br/min 10/22/2023 16:56 EST Systolic Blood Pressure Non-Invasive 113 mmHg mmHg Diastolic Blood Pressure Non-Invasive 81 mmHg mmHg 10/22/2023 16:55 EST Temperature (Route Not Specified) 37.14 DegC DegC Heart Rate Monitored 85 bpm bpm Respiratory Rate - Anes 20 br/min br/min 10/22/2023 16:51 EST Systolic Blood Pressure Non-Invasive 117 mmHg mmHg Diastolic Blood Pressure Non-Invasive 82 mmHg mmHg 10/22/2023 16:50 EST Temperature (Route Not Specified) 37.1 DegC DegC Heart Rate Monitored 83 bpm bpm Respiratory Rate - Anes 25 br/min br/min 10/22/2023 16:46 EST Systolic Blood Pressure Non-Invasive 120 mmHg mmHg Diastolic Blood Pressure Non-Invasive 80 mmHg mmHg 10/22/2023 16:45 EST Temperature (Route Not Specified) 37.07 DegC DegC Heart Rate Monitored 87 bpm bpm Respiratory Rate - Anes 13 br/min br/min 10/22/2023 16:41 EST Systolic Blood Pressure Non-Invasive 118 mmHg mmHg Diastolic Blood Pressure Non-Invasive 82 mmHg mmHg 10/22/2023 16:40 EST Temperature (Route Not Specified) 37.03 DegC DegC Heart Rate Monitored 87 bpm bpm Respiratory Rate - Anes 13 br/min br/min 10/22/2023 16:36 EST Systolic Blood Pressure Non-Invasive 112 mmHg mmHg Diastolic Blood Pressure Non-Invasive 79 mmHg mmHg 10/22/2023 16:35 EST Temperature (Route Not Specified) 37 DegC DegC Heart Rate Monitored 85 bpm bpm Respiratory Rate - Anes 12 br/min br/min 10/22/2023 16:31 EST Systolic Blood Pressure Non-Invasive 117 mmHg mmHg Diastolic Blood Pressure Non-Invasive 80 mmHg mmHg 10/22/2023 16:30 EST Temperature (Route Not Specified) 36.96 DegC DegC Heart Rate Monitored 85 bpm bpm Respiratory Rate - Anes 12 br/min br/min 10/22/2023 16:26 EST Systolic Blood Pressure Non-Invasive 112 mmHg mmHg Diastolic Blood Pressure Non-Invasive 80 mmHg mmHg 10/22/2023 16:25 EST Temperature (Route Not Specified) 36.92 DegC DegC Heart Rate Monitored 83 bpm bpm Respiratory Rate - Anes 12 br/min br/min 10/22/2023 16:21 EST Systolic Blood Pressure Non-Invasive 115 mmHg mmHg Diastolic Blood Pressure Non-Invasive 81 mmHg mmHg 10/22/2023 16:20 EST Temperature (Route Not Specified) 36.89 DegC DegC Heart Rate Monitored 83 bpm bpm Respiratory Rate - Anes 12 br/min br/min 10/22/2023 16:17 EST Systolic Blood Pressure Non-Invasive 113 mmHg mmHg Diastolic Blood Pressure Non-Invasive 56 mmHg mmHg 10/22/2023 16:15 EST Temperature (Route Not Specified) 36.84 DegC DegC Heart Rate Monitored 82 bpm bpm Respiratory Rate - Anes 12 br/min br/min 10/22/2023 16:11 EST Systolic Blood Pressure Non-Invasive 113 mmHg mmHg Diastolic Blood Pressure Non-Invasive 85 mmHg mmHg 10/22/2023 16:10 EST Temperature (Route Not Specified) 36.8 DegC DegC Heart Rate Monitored 81 bpm bpm Respiratory Rate - Anes 12 br/min br/min 10/22/2023 16:06 EST Systolic Blood Pressure Non-Invasive 107 mmHg mmHg Diastolic Blood Pressure Non-Invasive 77 mmHg mmHg 10/22/2023 16:05 EST Temperature (Route Not Specified) 36.76 DegC DegC Heart Rate Monitored 81 bpm bpm Respiratory Rate - Anes 12 br/min br/min 10/22/2023 16:01 EST Systolic Blood Pressure Non-Invasive 107 mmHg mmHg Diastolic Blood Pressure Non-Invasive 79 mmHg mmHg 10/22/2023 16:00 EST Temperature (Route Not Specified) 36.73 DegC DegC Heart Rate Monitored 80 bpm bpm Respiratory Rate - Anes 12 br/min br/min 10/22/2023 15:56 EST Systolic Blood Pressure Non-Invasive 109 mmHg mmHg Diastolic Blood Pressure Non-Invasive 78 mmHg mmHg 10/22/2023 15:55 EST Temperature (Route Not Specified) 36.73 DegC DegC Heart Rate Monitored 81 bpm bpm Respiratory Rate - Anes 12 br/min br/min 10/22/2023 15:53 EST Systolic Blood Pressure Non-Invasive 101 mmHg mmHg Diastolic Blood Pressure Non-Invasive 69 mmHg mmHg 10/22/2023 15:50 EST Temperature (Route Not Specified) 36.69 DegC DegC Heart Rate Monitored 80 bpm bpm Respiratory Rate - Anes 12 br/min br/min 10/22/2023 15:46 EST Systolic Blood Pressure Non-Invasive 113 mmHg mmHg Diastolic Blood Pressure Non-Invasive 81 mmHg mmHg 10/22/2023 15:45 EST Temperature (Route Not Specified) 36.65 DegC DegC Heart Rate Monitored 80 bpm bpm Respiratory Rate - Anes 12 br/min br/min 10/22/2023 15:41 EST Systolic Blood Pressure Non-Invasive 112 mmHg mmHg Diastolic Blood Pressure Non-Invasive 76 mmHg mmHg 10/22/2023 15:40 EST Temperature (Route Not Specified) 36.61 DegC DegC Heart Rate Monitored 79 bpm bpm Respiratory Rate - Anes 12 br/min br/min 10/22/2023 15:36 EST Systolic Blood Pressure Non-Invasive 110 mmHg mmHg Diastolic Blood Pressure Non-Invasive 80 mmHg mmHg 10/22/2023 15:35 EST Temperature (Route Not Specified) 36.59 DegC DegC Heart Rate Monitored 80 bpm bpm Respiratory Rate - Anes 12 br/min br/min 10/22/2023 15:31 EST Systolic Blood Pressure Non-Invasive 109 mmHg mmHg Diastolic Blood Pressure Non-Invasive 86 mmHg mmHg 10/22/2023 15:30 EST Temperature (Route Not Specified) 36.53 DegC DegC Heart Rate Monitored 81 bpm bpm Respiratory Rate - Anes 12 br/min br/min 10/22/2023 15:27 EST Systolic Blood Pressure Non-Invasive 108 mmHg mmHg Diastolic Blood Pressure Non-Invasive 72 mmHg mmHg 10/22/2023 15:25 EST Temperature (Route Not Specified) 36.49 DegC DegC Heart Rate Monitored 82 bpm bpm Respiratory Rate - Anes 12 br/min br/min 10/22/2023 15:21 EST Systolic Blood Pressure Non-Invasive 110 mmHg mmHg Diastolic Blood Pressure Non-Invasive 84 mmHg mmHg 10/22/2023 15:20 EST Temperature (Route Not Specified) 36.47 DegC DegC Heart Rate Monitored 79 bpm bpm Respiratory Rate - Anes 12 br/min br/min 10/22/2023 15:16 EST Systolic Blood Pressure Non-Invasive 117 mmHg mmHg Diastolic Blood Pressure Non-Invasive 82 mmHg mmHg 10/22/2023 15:15 EST Temperature (Route Not Specified) 36.43 DegC DegC Heart Rate Monitored 80 bpm bpm Respiratory Rate - Anes 12 br/min br/min 10/22/2023 15:11 EST Systolic Blood Pressure Non-Invasive 113 mmHg mmHg Diastolic Blood Pressure Non-Invasive 81 mmHg mmHg 10/22/2023 15:10 EST Temperature (Route Not Specified) 36.41 DegC DegC Heart Rate Monitored 78 bpm bpm Respiratory Rate - Anes 12 br/min br/min 10/22/2023 15:06 EST Systolic Blood Pressure Non-Invasive 118 mmHg mmHg Diastolic Blood Pressure Non-Invasive 81 mmHg mmHg 10/22/2023 15:05 EST Temperature (Route Not Specified) 36.38 DegC DegC Heart Rate Monitored 78 bpm bpm Respiratory Rate - Anes 12 br/min br/min 10/22/2023 15:01 EST Systolic Blood Pressure Non-Invasive 116 mmHg mmHg Diastolic Blood Pressure Non-Invasive 81 mmHg mmHg 10/22/2023 15:00 EST Temperature (Route Not Specified) 36.35 DegC DegC Heart Rate Monitored 75 bpm bpm Respiratory Rate - Anes 12 br/min br/min 10/22/2023 14:56 EST Systolic Blood Pressure Non-Invasive 93 mmHg mmHg Diastolic Blood Pressure Non-Invasive 71 mmHg mmHg 10/22/2023 14:55 EST Temperature (Route Not Specified) 36.33 DegC DegC Heart Rate Monitored 70 bpm bpm Respiratory Rate - Anes 12 br/min br/min 10/22/2023 14:53 EST Systolic Blood Pressure Non-Invasive 85 mmHg mmHg Diastolic Blood Pressure Non-Invasive 43 mmHg mmHg 10/22/2023 14:50 EST Temperature (Route Not Specified) 36.27 DegC DegC Heart Rate Monitored 70 bpm bpm Respiratory Rate - Anes 12 br/min br/min 10/22/2023 14:46 EST Systolic Blood Pressure Non-Invasive 96 mmHg mmHg Diastolic Blood Pressure Non-Invasive 76 mmHg mmHg 10/22/2023 14:45 EST Temperature (Route Not Specified) 36.23 DegC DegC Heart Rate Monitored 70 bpm bpm Respiratory Rate - Anes 12 br/min br/min 10/22/2023 14:41 EST Systolic Blood Pressure Non-Invasive 101 mmHg mmHg Diastolic Blood Pressure Non-Invasive 73 mmHg mmHg 10/22/2023 14:40 EST Temperature (Route Not Specified) 36.2 DegC DegC Heart Rate Monitored 70 bpm bpm Respiratory Rate - Anes 12 br/min br/min 10/22/2023 14:37 EST Systolic Blood Pressure Non-Invasive 95 mmHg mmHg Diastolic Blood Pressure Non-Invasive 71 mmHg mmHg 10/22/2023 14:35 EST Temperature (Route Not Specified) 36.16 DegC DegC Heart Rate Monitored 70 bpm bpm Respiratory Rate - Anes 12 br/min br/min 10/22/2023 14:31 EST Systolic Blood Pressure Non-Invasive 106 mmHg mmHg Diastolic Blood Pressure Non-Invasive 76 mmHg mmHg 10/22/2023 14:30 EST Temperature (Route Not Specified) 36.13 DegC DegC Heart Rate Monitored 71 bpm bpm Respiratory Rate - Anes 12 br/min br/min 10/22/2023 14:26 EST Systolic Blood Pressure Non-Invasive 102 mmHg mmHg Diastolic Blood Pressure Non-Invasive 62 mmHg mmHg 10/22/2023 14:25 EST Temperature (Route Not Specified) 36.11 DegC DegC Heart Rate Monitored 72 bpm bpm Respiratory Rate - Anes 12 br/min br/min 10/22/2023 14:21 EST Systolic Blood Pressure Non-Invasive 108 mmHg mmHg Diastolic Blood Pressure Non-Invasive 64 mmHg mmHg 10/22/2023 14:20 EST Temperature (Route Not Specified) 36.09 DegC DegC Heart Rate Monitored 70 bpm bpm Respiratory Rate - Anes 12 br/min br/min 10/22/2023 14:16 EST Systolic Blood Pressure Non-Invasive 103 mmHg mmHg Diastolic Blood Pressure Non-Invasive 79 mmHg mmHg 10/22/2023 14:15 EST Temperature (Route Not Specified) 36.08 DegC DegC Heart Rate Monitored 70 bpm bpm Respiratory Rate - Anes 12 br/min br/min 10/22/2023 14:11 EST Systolic Blood Pressure Non-Invasive 112 mmHg mmHg Diastolic Blood Pressure Non-Invasive 80 mmHg mmHg 10/22/2023 14:10 EST Temperature (Route Not Specified) 36.05 DegC DegC Heart Rate Monitored 70 bpm bpm Respiratory Rate - Anes 12 br/min br/min 10/22/2023 14:06 EST Systolic Blood Pressure Non-Invasive 101 mmHg mmHg Diastolic Blood Pressure Non-Invasive 85 mmHg mmHg 10/22/2023 14:05 EST Temperature (Route Not Specified) 36.04 DegC DegC Heart Rate Monitored 73 bpm bpm Respiratory Rate - Anes 12 br/min br/min 10/22/2023 14:03 EST Systolic Blood Pressure Non-Invasive 91 mmHg mmHg Diastolic Blood Pressure Non-Invasive 62 mmHg mmHg 10/22/2023 14:01 EST Systolic Blood Pressure Non-Invasive 90 mmHg mmHg Diastolic Blood Pressure Non-Invasive 69 mmHg mmHg 10/22/2023 14:00 EST Temperature (Route Not Specified) 36.02 DegC DegC Heart Rate Monitored 63 bpm bpm Respiratory Rate - Anes 12 br/min br/min 10/22/2023 13:56 EST Systolic Blood Pressure Non-Invasive 93 mmHg mmHg Diastolic Blood Pressure Non-Invasive 72 mmHg mmHg 10/22/2023 13:55 EST Temperature (Route Not Specified) 35.98 DegC DegC Heart Rate Monitored 64 bpm bpm Respiratory Rate - Anes 12 br/min br/min 10/22/2023 13:51 EST Systolic Blood Pressure Non-Invasive 101 mmHg mmHg Diastolic Blood Pressure Non-Invasive 76 mmHg mmHg 10/22/2023 13:50 EST Temperature (Route Not Specified) 35.94 DegC DegC Heart Rate Monitored 63 bpm bpm Respiratory Rate - Anes 12 br/min br/min 10/22/2023 13:46 EST Systolic Blood Pressure Non-Invasive 97 mmHg mmHg Diastolic Blood Pressure Non-Invasive 75 mmHg mmHg 10/22/2023 13:45 EST Temperature (Route Not Specified) 35.91 DegC DegC Heart Rate Monitored 67 bpm bpm Respiratory Rate - Anes 12 br/min br/min 10/22/2023 13:41 EST Systolic Blood Pressure Non-Invasive 98 mmHg mmHg Diastolic Blood Pressure Non-Invasive 68 mmHg mmHg 10/22/2023 13:40 EST Temperature (Route Not Specified) 35.89 DegC DegC Heart Rate Monitored 66 bpm bpm Respiratory Rate - Anes 12 br/min br/min 10/22/2023 13:36 EST Systolic Blood Pressure Non-Invasive 101 mmHg mmHg Diastolic Blood Pressure Non-Invasive 75 mmHg mmHg 10/22/2023 13:35 EST Temperature (Route Not Specified) 35.85 DegC DegC Heart Rate Monitored 67 bpm bpm Respiratory Rate - Anes 12 br/min br/min 10/22/2023 13:31 EST Systolic Blood Pressure Non-Invasive 102 mmHg mmHg Diastolic Blood Pressure Non-Invasive 75 mmHg mmHg 10/22/2023 13:30 EST Temperature (Route Not Specified) 35.82 DegC DegC Heart Rate Monitored 74 bpm bpm Respiratory Rate - Anes 12 br/min br/min 10/22/2023 13:26 EST Systolic Blood Pressure Non-Invasive 116 mmHg mmHg Diastolic Blood Pressure Non-Invasive 78 mmHg mmHg 10/22/2023 13:25 EST Temperature (Route Not Specified) 35.79 DegC DegC Heart Rate Monitored 68 bpm bpm Respiratory Rate - Anes 12 br/min br/min 10/22/2023 13:20 EST Temperature (Route Not Specified) 35.76 DegC DegC Heart Rate Monitored 66 bpm bpm Respiratory Rate - Anes 12 br/min br/min 10/22/2023 13:15 EST Temperature (Route Not Specified) 35.72 DegC DegC Heart Rate Monitored 61 bpm bpm Respiratory Rate - Anes 12 br/min br/min 10/22/2023 13:14 EST Systolic Blood Pressure Non-Invasive 93 mmHg mmHg Diastolic Blood Pressure Non-Invasive 70 mmHg mmHg 10/22/2023 13:12 EST Systolic Blood Pressure Non-Invasive 94 mmHg mmHg Diastolic Blood Pressure Non-Invasive 73 mmHg mmHg 10/22/2023 13:10 EST Temperature (Route Not Specified) 35.7 DegC DegC Heart Rate Monitored 67 bpm bpm Respiratory Rate - Anes 12 br/min br/min 10/22/2023 13:05 EST Temperature (Route Not Specified) 35.67 DegC DegC Heart Rate Monitored 71 bpm bpm Respiratory Rate - Anes 12 br/min br/min 10/22/2023 13:00 EST Temperature (Route Not Specified) 35.65 DegC DegC Heart Rate Monitored 69 bpm bpm Respiratory Rate - Anes 12 br/min br/min 10/22/2023 12:55 EST Temperature (Route Not Specified) 35.62 DegC DegC Heart Rate Monitored 70 bpm bpm Respiratory Rate - Anes 12 br/min br/min 10/22/2023 12:50 EST Temperature (Route Not Specified) 35.58 DegC DegC Heart Rate Monitored 68 bpm bpm Respiratory Rate - Anes 12 br/min br/min 10/22/2023 12:46 EST Systolic Blood Pressure Non-Invasive 104 mmHg mmHg Diastolic Blood Pressure Non-Invasive 79 mmHg mmHg 10/22/2023 12:45 EST Temperature (Route Not Specified) 35.57 DegC DegC Heart Rate Monitored 78 bpm bpm Respiratory Rate - Anes 12 br/min br/min 10/22/2023 12:40 EST Temperature (Route Not Specified) 35.54 DegC DegC Heart Rate Monitored 75 bpm bpm Respiratory Rate - Anes 12 br/min br/min 10/22/2023 12:36 EST Systolic Blood Pressure Non-Invasive 104 mmHg mmHg Diastolic Blood Pressure Non-Invasive 78 mmHg mmHg 10/22/2023 12:35 EST Temperature (Route Not Specified) 35.51 DegC DegC Heart Rate Monitored 79 bpm bpm Respiratory Rate - Anes 12 br/min br/min 10/22/2023 12:30 EST Temperature (Route Not Specified) 35.48 DegC DegC Heart Rate Monitored 82 bpm bpm Respiratory Rate - Anes 12 br/min br/min 10/22/2023 12:25 EST Temperature (Route Not Specified) 35.47 DegC DegC Heart Rate Monitored 89 bpm bpm Respiratory Rate - Anes 12 br/min br/min 10/22/2023 12:20 EST Temperature (Route Not Specified) 35.44 DegC DegC Heart Rate Monitored 86 bpm bpm Respiratory Rate - Anes 12 br/min br/min 10/22/2023 12:15 EST Temperature (Route Not Specified) 35.44 DegC DegC Heart Rate Monitored 87 bpm bpm Respiratory Rate - Anes 12 br/min br/min 10/22/2023 12:14 EST Systolic Blood Pressure Non-Invasive 129 mmHg mmHg Diastolic Blood Pressure Non-Invasive 97 mmHg mmHg 10/22/2023 12:11 EST Systolic Blood Pressure Non-Invasive 137 mmHg mmHg Diastolic Blood Pressure Non-Invasive 98 mmHg mmHg 10/22/2023 12:10 EST Temperature (Route Not Specified) 35.42 DegC DegC Heart Rate Monitored 90 bpm bpm Respiratory Rate - Anes 12 br/min br/min 10/22/2023 12:08 EST Systolic Blood Pressure Non-Invasive 150 mmHg mmHg Diastolic Blood Pressure Non-Invasive 112 mmHg mmHg 10/22/2023 12:05 EST Temperature (Route Not Specified) 35.53 DegC DegC Heart Rate Monitored 86 bpm bpm Respiratory Rate - Anes 12 br/min br/min Systolic Blood Pressure Non-Invasive 97 mmHg mmHg Diastolic Blood Pressure Non-Invasive 81 mmHg mmHg 10/22/2023 12:02 EST Systolic Blood Pressure Non-Invasive 92 mmHg mmHg Diastolic Blood Pressure Non-Invasive 73 mmHg mmHg 10/22/2023 12:00 EST Temperature (Route Not Specified) 35.51 DegC DegC Heart Rate Monitored 78 bpm bpm Respiratory Rate - Anes 12 br/min br/min 10/22/2023 11:59 EST Systolic Blood Pressure Non-Invasive 97 mmHg mmHg Diastolic Blood Pressure Non-Invasive 81 mmHg mmHg 10/22/2023 11:56 EST Systolic Blood Pressure Non-Invasive 103 mmHg mmHg Diastolic Blood Pressure Non-Invasive 81 mmHg mmHg 10/22/2023 11:55 EST Temperature (Route Not Specified) 35.45 DegC DegC Heart Rate Monitored 76 bpm bpm Respiratory Rate - Anes 12 br/min br/min 10/22/2023 11:53 EST Systolic Blood Pressure Non-Invasive 115 mmHg mmHg Diastolic Blood Pressure Non-Invasive 85 mmHg mmHg 10/22/2023 11:50 EST Heart Rate Monitored 79 bpm bpm Respiratory Rate - Anes 12 br/min br/min Systolic Blood Pressure Non-Invasive 125 mmHg mmHg Diastolic Blood Pressure Non-Invasive 90 mmHg mmHg 10/22/2023 11:47 EST Systolic Blood Pressure Non-Invasive 131 mmHg mmHg Diastolic Blood Pressure Non-Invasive 96 mmHg mmHg 10/22/2023 11:45 EST Heart Rate Monitored 91 bpm bpm Respiratory Rate - Anes 12 br/min br/min 10/22/2023 11:44 EST Systolic Blood Pressure Non-Invasive 144 mmHg mmHg Diastolic Blood Pressure Non-Invasive 97 mmHg mmHg 10/22/2023 11:41 EST Systolic Blood Pressure Non-Invasive 134 mmHg mmHg Diastolic Blood Pressure Non-Invasive 109 mmHg mmHg 10/22/2023 11:40 EST Heart Rate Monitored 96 bpm bpm Respiratory Rate - Anes 12 br/min br/min 10/22/2023 11:38 EST Systolic Blood Pressure Non-Invasive 114 mmHg mmHg Diastolic Blood Pressure Non-Invasive 78 mmHg mmHg 10/22/2023 11:35 EST Heart Rate Monitored 88 bpm bpm Respiratory Rate - Anes 12 br/min br/min Systolic Blood Pressure Non-Invasive 125 mmHg mmHg Diastolic Blood Pressure Non-Invasive 89 mmHg mmHg 10/22/2023 11:32 EST Systolic Blood Pressure Non-Invasive 130 mmHg mmHg Diastolic Blood Pressure Non-Invasive 87 mmHg mmHg 10/22/2023 11:30 EST Heart Rate Monitored 93 bpm bpm Respiratory Rate - Anes 0 br/min br/min 10/22/2023 11:29 EST Systolic Blood Pressure Non-Invasive 123 mmHg mmHg Diastolic Blood Pressure Non-Invasive 89 mmHg mmHg 10/22/2023 11:26 EST Systolic Blood Pressure Non-Invasive 142 mmHg mmHg Diastolic Blood Pressure Non-Invasive 93 mmHg mmHg 10/22/2023 11:25 EST Heart Rate Monitored 84 bpm bpm Respiratory Rate - Anes 0 br/min br/min 10/22/2023 9:00 EST Temperature Temporal Artery 36.3 DegC Peripheral Pulse Rate 73 bpm Respiratory Rate 18 br/min Systolic Blood Pressure Non-Invasive 149 mmHg HI Diastolic Blood Pressure Non-Invasive 91 mmHg HI . Mental status: at preoperative baseline. Respiratory function: respirations are non-labored, Stable. Respiratory support: none. CV function: Stable. Cardiovascular support: none. Pain: Satisfactory. Nausea status: Satisfactory. Postoperative hydration status: within normal limits. Notes: Patient is sufficiently recovered from anesthesia to participate in the evaluation. No follow-up care needed. No complications post-anesthesia.. Digitally Signed by JENNIFER RIVERA MD on 10/22/2023 08:03 PM [facility] 10-22-2023 Note ORIGINAL EXAMINATION: SPOT FLUOROSCOPIC IMAGES 10/22/2023 5:36 pm TECHNIQUE: Fluoroscopy was provided by the radiology department for procedure. Radiologist was not present during examination. FLUOROSCOPY DOSE AND TYPE: Radiation Exposure Index: 0.1973 mGy, Fluoro time: 1.3 seconds Images: 1 COMPARISON: None HISTORY: ORDERING SYSTEM PROVIDED HISTORY: Reason for Exam: neck pain, acdf c4-7 Intraprocedural imaging. FINDINGS: Spot intraoperative images are obtained demonstrating a lateral view of the cervical spine with a metallic linear object marking the C3-C4 disc space.. IMPRESSION: Intraprocedural fluoroscopic spot images as above. See separate procedure report for more information. I have personally reviewed the images of this examination and agree with the resident's findings and interpretation. Interpreted by: Junaid Martínez Preliminary Report By: Fay Barron Electronically signed By Junaid Martínez Dictated Date: 10/22/2023 6:58:12 PM Prelim Date: 10/22/2023 7:01:19 PM Sign Date: 10/22/2023 7:03:48 PM Ordering Provider: [facility] 10-22-2023 Anesthesiology Consult note Patient: FRED MCKEON Age: 73 years Sex: Male : 1950 Associated Diagnoses: None Author: PAIGE MOODY MD Preoperative Information NPO > 8 hrs Anesthesia history Patient's history: negative. Family's history: negative. History of Present Illness The patient presents for preanesthesia evaluation with 73-year-old, male, who presents for an anterior cervical discectomy and fusion cervical 4-7 with plate and screws C4-7. He denies having a personal or family history of anesthesia reaction, or difficult intubation. His past medical history includes Arthritis, degenerative disc disease, hypertension, spondylosis with radiculopathy, spinal stenosis. He denies being diagnosed sleep apnea, STOP BANG score, 5. He does have a history of smoking, quit 22 years ago, smoked 1 pack a day for 25 years. He has his own teeth, denies loose teeth, denies difficulty opening his jaw. Denies acid reflux. He denies having recent chest pain, chest pressure, palpitations, dizziness, syncopal episodes, cold-like symptoms. He does endorse occasional dyspnea but states he can ambulate distances without becoming short of breath. Patient stated he ambulated in from the parking deck to his room without becoming short of breath. He does endorse chronic peripheral edema if he sits for too long, relieved with elevation. . Review of Systems Ear/Nose/Mouth/Throat: Negative except as documented in history of present illness. Respiratory: Negative except as documented in history of present illness. Cardiovascular: Negative except as documented in history of present illness. Gastrointestinal: Negative except as documented in history of present illness. Genitourinary: Negative except as documented in history of present illness. Endocrine: Negative except as documented in history of present illness. Musculoskeletal: Negative except as documented in history of present illness. Integumentary: Negative except as documented in history of present illness. Neurologic: Negative except as documented in history of present illness. Health Status Allergies: Allergic Reactions (Selected) NKA, Allergies (1) ActiveReaction NKANone Documented Current medications: (Selected) Inpatient Medications Ordered Ancef: 2 gram(s), 20 mL, 240 mL/hr, IV Push (INT), PREOP pharm Decadron: 10 mg, 2.5 mL, 150 mL/hr, IV Piggyback, PREOP pharm LR 1,000 mL: 100 mL/hr, Intravenous, Stop: 10/22/23 22:59:00 EST LR 1,000 mL: 20 mL/hr, Intravenous, Stop: 10/22/23 22:59:00 EST lidocaine 1% preservative-free injectable solution: 2.5 mg, 0.25 mL, Intradermal, Once Prescriptions Prescribed NIFEdipine (Eqv-Procardia XL) 60 mg oral tablet, extended release: 1 tab(s), Oral, qAM, 90 tab(s), 0 Refill(s) mupirocin 2% topical ointment: 1 gela, Topical, BID, Bilateral intranasal application twice daily x 5 days pre-surgery &/or as many days pre-surgery as possible., 22 gram(s), 0 Refill(s) ramipril 10 mg oral capsule: 1 cap(s), Oral, qAM, 90 cap(s), 0 Refill(s) sulindac 200 mg oral tablet: 200 mg, 1 tab(s), Oral, BID, PRN: as needed for arthritis, 180 tab(s), 0 Refill(s) Documented Medications Documented Centrum Silver Men's oral tablet: 1 tab(s), Oral, qDay Magnesium 250 mg tablet: 500 mg, 2 tab(s), Oral, qDay, for 7 day(s), 14 tab(s), 0 Refill(s) Tylenol 500 mg oral tablet: 1,000 mg, 2 tab(s), Oral, q4h, PRN: for pain Vicks Sinex Severe 0.05% nasal spray: 1 spray(s), Nostril, each, BID, PRN: as needed for nasal congestion, 0 Refill(s) Vitamin D3: 50 mcg, 1 tab(s), Oral, Daily, 0 Refill(s) Vitamin D3: 50 mcg, 1 tab(s), Oral, Daily, 60 tab(s), 0 Refill(s) Vitamin K2 100 mcg oral tablet: 200 mcg, 2 tab(s), Oral, qDay, 100 tab(s), 0 Refill(s) aspirin 81 mg oral delayed release tablet: 81 mg, 1 tab(s), Oral, qAM, per patient last dose is 10/14/2023, 0 Refill(s) turmeric 1000 mg oral capsule: 1,000 mg, 1 cap(s), Oral, Daily, 0 Refill(s), Medications (5) Active Scheduled: (3) ceFAZolin syringe 2 gram(s) 20 mL, IV Push (INT), PREOP pharm dexamethasone 10 mg 2.5 mL, IV Piggyback, PREOP pharm lidocaine 1% (MPF) 2 mL vial pf 2.5 mg 0.25 mL, Intradermal, Once Continuous: (2) Lactated Ringers 1,000 mL 1,000 mL, Intravenous, 20 mL/hr Lactated Ringers 1,000 mL 1,000 mL, Intravenous, 100 mL/hr PRN: (0) Problem list: Medical Arthritis / SNOMED CT 5792226 / Confirmed Back pain / SNOMED CT 8186667954 / Confirmed DDD (degenerative disc disease) / SNOMED CT [id number] 140 / Confirmed Glasses / SNOMED CT 8561111572 / Confirmed High blood pressure / SNOMED CT 25147354 / Confirmed Obesity / SNOMED CT 2132157527 / Confirmed Spinal stenosis / SNOMED CT 262289358 / Confirmed Weakness / SNOMED CT 86574229 / Confirmed Resolved: Urinary calculus / SNOMED CT 3450190188, Active Problems (11) Acquired left foot drop Arthritis Back pain COVID-19 DDD (degenerative disc disease) Glasses High blood pressure Obesity Other spondylosis with radiculopathy, cervical region Spinal stenosis Weakness Histories Past Medical History: Active High blood pressure (07379077) Back pain (8497439155) Arthritis (7866964) DDD (degenerative disc disease) ([id number] B140) Comments: 09/07/2014 EST 6:40 ALYSHA - IRINEO Berger Cleared for surgery 09/07/14. Spinal stenosis (955762784) Glasses (6185333780) Obesity (4414173610) Weakness (79011160) Resolved Urinary calculus (2135624273): Onset in 2004 at 55 years. Resolved. Procedure history: Fusion of lumbar spine (004394785) in 2015 at 65 Years. Arthroscopy of shoulder (119340707). Comments: 10/08/2023 11:54 Marce Huggins RN left Colonoscopy (266129732). Spermatocele ([id number]). Comments: 10/08/2023 11:55 Marce Huggins RN left Social History Social & Psychosocial Habits Alcohol 10/22/2023 Use: Current Type: Beer Frequency: 1-2 times per week Substance Abuse 10/22/2023 Use: Never Tobacco 10/22/2023 Tobacco Use: Former smoker, quit more Type: Cigarettes Started at age: 21 Years Stopped at age: 51 Years Home/Environment 10/22/2023 Living situation: Home/Independent Safe place to go: Yes Domestic Concerns None Lives In Single level home . Physical Examination Vital Signs(last 24 hrs) Last Charted SBPH 149mmHg (OCT 22 09:00) DBPH 91mmHg (OCT 22 09:00) Measurements from flowsheet : Measurements 10/22/2023 9:00 EST Height 180.3 cm Height in inches 71 inch(es) Admission Weight 115.7 kg Weight Lbs 254.5 lb Weight Method Actual [place] Body Weight 75.26 kg Type of Scale Used Bed scale Admission Body Mass Index 35.59 m2 General: Alert and oriented, No acute distress. Airway: Normal temporomandibular joint mobility, Normal mouth, Normal neck range of motion. Mallampati classification: II (soft palate, fauces, uvula visible). Dentition Evaluation: Intact, Own teeth. Respiratory: Lungs are clear to auscultation. Cardiovascular: Normal rate, Regular rhythm. Heart Sounds: Normal. Neurologic: Alert, Oriented, No focal deficits. Review / Management Results review: No qualifying data available . Documentation reviewed: Current records. Assessment and Plan [place] [employer]esthesi[employer] (ASA) physical status classification: Class III. Anesthetic Preoperative Plan Premedication: intravenous. Anesthetic technique: General. Induction: intravenously. Maintenance airway: Oral endotracheal tube. Special Monitoring: Arterial line, SSEP and MEP monitoring. Postoperative pain management: Per surgeon. Risks discussed: nausea, vomiting, sore throat, dental injury, hypotension, allergic reaction, serious complications. Informed consent: signed by patient. Digitally Signed by PAIGE MOODY MD on 10/22/2023 10:36 AM [facility] 06-04-2023 Procedure note [facility] Evaluation + Plan note Future Appointments [facility] Evaluation note Diagnosis Onset Date Essential hypertension acute Tinea corporis acute Vitamin D deficiency acute Weakness of left foot acute Chronic low back pain chroni c Screening for cardiovascular condition noneactive Establishing care with nisha burgess, encounter for noneactive Screening for AAA (abdominal aortic aneurysm) noneactive [facility] Work Phone: Evaluation note* Diagnosis Onset Date Resolution Status Essential hypertension acute Weakness of left foot acute Chronic low back pain chroni c Immunization due noneactive Bilateral hand pain noneacti ve Numbness of fingers noneacti ve Impacted cerumen of right ear noneactive [facility] Work Phone: Evaluation note* Diagnosis Onset Date Resolution Status Essential hypertension acute Weakness of left foot acute Chronic low back pain chroni c Immunization due noneactive Bilateral hand pain noneacti ve Numbness of fingers noneacti ve Impacted cerumen of right ear noneactive Bilateral carpal tunnel syndrome acute Cervical radiculopathy acute Cubital tunnel syndrome, bilateral acute Bilateral carpal tunnel syndrome acute Herniated nucleus pulposus, C4-5 left acute Myelomalacia of cervical cord acute [facility] Work Phone: Evaluation note* Diagnosis Onset Date Resolution Status Admit Date Bilateral carpal tunnel syndrome acute June 07 10:17am Cervical radiculopathy acute Oc tober 2024 10:17am Essential hypertension acute Oc tober 2024 10:17am GERD (gastroesophageal reflu x disease) acute June 07 10:17am Weakness of left foot acute Oct uriah 2024 10:17am Screening for depression noneactive June 07, 2025 10:17am Lumbar radiculopathy noneactive Octo ayleen 2024 10:17am Immunization due noneactive June 07, 2025 10:17am Obesity (BMI 30-39.9) noneactive Oct uriah 2024 10:17am [facility] Work Phone: Hospital course Narrative No data available for this section [facility] Hospital Discharge instructions No data available for this section [facility] Hospital Discharge instructionsAmbulatory Orders* Physical Therapy Referral Location: None Selected [facility] Work Phone: Procedure note* Brian Desouza HIM: PERFORM Event Display: Procedure Note Authored Date: [id number] [facility] Progrsmq note No data available for this section [facility] Proszrxe note Author Hyaicnth Bran [facility] Note Date/Time June 07, 2025 1 1:23am [facility] [address] [place] [address] [place] [address] OFFICE VISIT Date of Service: 06/07/25 MR#: [id number] Acct: [id number] Name: FRED MCKEON Rep #: [id number] : 1950 Provider: Dr. 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 Required: No Accompanied by: Self Is patient in pain?: No Allergies No Known Allergies Allergy (Unverified 06/07/25 10:22) Medications ?Medication ?Instructions ?Recorded ?Confirmed ?Type VITAMIN K2 PO 1XD 02/15/22 06/07/25 His tory aspirin 81 mg tablet,delayed 81 mg PO DAILY 02/15/22 1 History release (Adult Low Dose Aspirin) cholecalciferol (vitamin D3) 125 125 mcg PO DAILY 01/2506/07/25 History mcg (5,000 unit) tablet (Vitamin D3) magnesium oxide 400 mg PO DAILY 02/15/22 History ypngvgdd-gaejofjn-zoxku acid 400 tab PO 02/15/2206/07 History mcg-vit K 20 mcg-lycop 300 mcg tablet (One-A-Day Men's Multivitamin) turmeric root extract 500 mg tablet mg PO BID 02/15/22 06/07/25 History handicap placard #1 ea 10/16/22 12/10/24 Rx cetirizine 10 mg tablet (Zyrtec) 10 mg PO QDAY #30 tab s 11/04/24 06/07/25 Rx fluticasone propionate 50 1 spray intranasal QDAY #16 grams 11/04/24 06/07/25 Rx mcg/actuation nasal spray,suspension (Flonase Allergy Relief) sulindac 200 mg tablet See Rx Instructions .Route 0 05/10/25 06/07/25 Rx .COMPLEX #180 tabs losartan 100 mg tablet 100 mg PO QDAY #90 tabs 05/2606/07/25 Rx nifedipine 30 mg tablet,extended 30 mg PO DAILY #90 ta bs 06/07/25 06/07/25 Rx release Have you fallen in the past year?: Yes PFSH Medical History Cubital tunnel syndrome, bilateral Bilateral carpal tunnel syndrome Cervical radiculopathy Hx of fracture of arm History of kidney stones Hx of primary hypertension Hx of fracture History of back pain Surgical History Hx of repair of left rotator cuff History of back surgery Family History Mother Arthritis Hypertension High cholesterol Osteoporosis CVA (cerebral vascular accident) Father Arthritis Mesothelioma Hypertension High cholesterol Grandfather Colon cancer Social History (Updated 06/07/25 @ 10:[address] 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 1. Little interest or pleasure in doing things: not at all 2. Feeling down, depressed, or hopeless: not at all 3. Trouble falling or staying asleep, or sleeping too much: not at all 4. Feeling tired or having little energy: more than half the days 5. Poor appetite or overeating: not at all 6. Feeling bad about yourself - or that you are a failure or have let yourself and your family down: not at all 7. Trouble concentrating on things, such as reading the newspaper or watching television: not at all 8. Moving or speaking so slowly that other people could have noticed? - Or the opposite - being so fidgety or restless that you have been moving around a lot more than usual: not at all 9. Thoughts that you would be better off or of hurting yourself in some way: not at all Total score: 2 If you checked off any problems, how difficult have these problems made it for you to do your work, take care of things at home, or get along with other people?: not difficult at all Source: Developed by Drs. Layton Reeder, Rocio Young, Shashank Ayala and colleagues, with an educational teetee from [employer]. MACY-7 BMS MACY-7 Feeling nervous, anxious, or on edge: 0 = Not at all Not being able to stop or control worryin = Not at all Worrying too much about different things: 0 = Not at all Trouble relaxin = Not at all Being so restless that it is hard to sit still: 0 = Not at all Becoming easily annoyed or irritable: 0 = Not at all Feeling afraid as if something awful might happen: 0 = Not at all Total MACY-7 score (0-4 normal; 5-9 mild; 10-14 moderate; 15-21 severe): 0 Source: Developed by Drs. Layton Reeder, Rocio Young, Shashank Ayala and colleagues, with an educational teetee from [employer]. HPI HPI Details: FRED MCKEON, is a 75 M who presents to the office today for a follow up.? He is due for some routine blood work and is up to date on his screening.? He would like his prevnar and flu shot today.? He does not smoke, and does not needany refills.? He reports he is eating healthy and reports he has been active around his house. His balance, foot weakness and hand pain have been a little worse again since hewas last seen. He states he has had a couple of falls since he was last seen. He states he will tend to fall when he turns. He reports he hasn't had any injuries with the falls. He states recently he has trouble lifting his right leg when he gets off the mower. He is willing to do some physical therapy. The patient takes sulindac for his arthritis. He states he can notice a difference if he doesn't take it. He reports it is mostly in his lower back. He denies any pain currently, but states with walking it can flare up. He does check his blood pressure at home stating it is similar to today's readings in the 120s-130s/80s.? At his last office visit, his medication was changed due to persistent cough. He is taking his medications as prescribed without any problems. He reports he does monitor his salt intake overall. He hasn't had any problems with GERD. He states he does avoid eating late at night. His most recent EGD was done last month and was normal. He reports his cough has been much better since changing ramipril, although he reports he does still have a mild cough. ROS Const Constitutional: Positive for fatigue, frequent falls, snoring, weakness and weight change (8 pound weight loss); No body ache, chills, excessive sweating, fever(s), headache(s), sleep problems or change in appetite Eyes Eyes: Positive for blurry vision; No change in vision, eye pain or Light sensitivity ENT ENT: Positive for nasal congestion and neck pain; No abnormal hearing, ear or mastoid pain, tinnitus, post nasal drip, headache(s)or sore throat Resp Respiratory: Positive for cough (improving) Cough: Yes productive, shortness of breath (with exertion) sob: SOB with activity and snoring; No wheezing Cardio Cardiology: Positive for other (mild leg swelling); No chest pain at rest, chest pain with exertion, excessive sweating, shortness of breath, dyspnea on exertion, lightheadedness, orthopnea or palpitations Gastro GI: No abdominal pain, change in bowel habits, constipation, cramping, diarrhea,nausea/dyspepsia or vomiting Genitourinary Male: No difficulty urinating, burning urination, painful urination, urinary incontinence or urinary frequency Musc Musculoskeletal: Positive for abnormal gait, joint pain, back pain, neck pain, numbness (worsened. hands) and tingling (worsened. hands); No limited range of motion Skin Skin: No dry skin, redness, lesions, itchy eyes, rash or wounds Neuro Neurology: Positive for abnormal gait, unsteady gait/balance (uses cane or walker), weakness, frequent falls, numbness (worsened. hands) and tingling (worsened. hands); No abnormal hearing, dizziness, headache(s), memory loss or fainting Psych Psychiatric: No anxiety, No change in appetite, No depression, No memory loss and No Thoughts of harming yourself/Others Endo Endocrine: Positive for fatigue and weight change (8 pound weight loss); No cold intolerance, excessive sweating, flushing, heat intolerance, increased thirst/drinking or increased hunger Aller/Imm Allergy/Immunologic: No itchy eyes, seasonal allergy symptoms, hives or wheezing Bobby/Lymp Hematologic/Lymphatic: No easy bleeding, easy bruising, enlarged lymph nodes or other Exam Const General: cooperative, healthy appearing, no acute distress, well developed, not diaphoretic and not ill appearing Nutritional Appearance: well nourished Orientation: alert and oriented x3 Limitations: mental status not altered [facility] Head: normal to inspection, normocephalic and atraumatic Ears: hearing grossly normal bilaterally Face and sinus: normal facial exam Mouth: oral mucosae normal and moist mucous membranes Teeth and gingiva: dentition normal Throat: posterior oropharynx normal Eyes Conjunctivae: conjunctivae normal Sclera: sclerae normal Pupils: PERRL Chest Chest palpation & inspection: normal inspection of the chest Resp Effort & Inspection: normal respiratory effort, able to speak in complete sentences, no audible wheezes and no cough Auscultation: Bilateral: Clear to Auscultation Cardio Rate: regular rate Rhythm: regular rhythm Heart Sounds: S1 normal, S2 normal and no murmurs GI Inspection: non-distended Auscultation: normal bowel sounds Palpation: soft and nontender Musc Cervical Spine: No cervical spinal tenderness Thoracic/Lumbar Spine: no thoracic spinal tenderness and no lumbar spinal tenderness Skin General: no rashes or lesions noted and dry skin Wounds: no wounds Neuro General: patient alert and patient oriented x3 Cranial Nerves: PERRL Speech: speech normal Gait: gait abnormal and gait assisted Method: other (cane) Motor: strength 5/5 throughout Extrem General: normal to inspection and edema Laterality: bilateral Severity: pitting and 1+ Other: compression stockings in place. Left foot brace in place. Psych Appearance: grossly normal Affect: normal affect Attitude: cooperative Immunizations Fluad 65yr up(PF)45 mcg(15 mcgx3)/0.5 mL intramuscular syringe Performing Provider: Hyacinth Bran MD Performing Location: [facility] Administered by: Patricia Queen on 06/07/25 11:27 Dose Route Admin Location Dispensed Lot Number Expiration Date Pack age [facility] Technician Trainee 45 mcg IM Right Deltoid 0.5 mL [id number] 12/21/25 [id number] [employer] VIS Given Date VIS Provided VIS Publication Date 06/07/25 Single Vaccine 24 Eligibility Eligibility Date Funding Source Not Applicable Administration Comments: Pt tolerated well. No s/sx adverse reactions noted. Prevnar 20 (PF) 0.5 mL intramuscular syringe Performing Provider: Hyacinth Bran MD Performing Location: [facility] Administered by: Patricia Queen on 06/07/25 11:27 Dose Route Admin Location Dispensed Lot Number Expiration Date Pack age ND ND Technician Trainee 0.5 mL IM Right Deltoid 0.5 mL [id number] 04/26/26 0000 [id number] [employer] VIS Given Date VIS Provided VIS Publication Date 06/07/25 Single Vaccine 25 Eligibility Eligibility Date Funding Source Not Applicable Administration Comments: Pt tolerated well. No s/sx adverse reactions noted. Coding Level of Care Code Off vis,est,level 5 Diagnoses Essential hypertension I10 Gastroesophageal reflux disease, unspecified whether esophagitis present K21.9 Esophagitis presence: esophagitis presence not specified Cervical radiculopathy M54.12 Lumbar radiculopathy M54.16 Bilateral carpal tunnel syndrome G56.03 Obesity (BMI 30-39.9) E66.9 Weakness of left foot R29.898 Immunization due Z23 Screening for depression Z13.31 Additional Codes PHQ-9 (41985) MACY-7 (69127) Time Spent (min) 44 Assessment and Plan Assessment and Plan (1) Essential hypertension: Status: Acute Plan: The patient's blood pressure shows fair control. He is concerned about the nifedipine causing leg swelling and would like to try adjusting it. Will have him cut back to 30mg daily, while increasing the losartan to 100mg daily. He was instructed to call if any problems with the dose changes and he agreed. Patient counseled on salt intake. He was encouraged to continue home monitoring. Routine labs ordered. (2) GERD (gastroesophageal reflux disease): Status: Acute Qualifiers: Esophagitis presence: esophagitis presence not specified Qualified Code(s): K21.9 - Gastro-esophageal reflux disease without esophagitis Comment: swallow study 03/04/24 Plan: Patient reports his symptoms have been doing much better with mindful eating. He recently had an EGD which was normal. He is no longer on medications. Will continue to monitor. (3) Cervical radiculopathy: Status: Acute Plan: Patient feels that his symptoms may be getting worse again. I cannot appreciateany significant findings on exam today, however, with his history of cord compression, I do feel imaging of his cervial and lumbar spine is appropriate. He was in agreement. In the meantime, he is agreeable to physical therapy, so will refer. Will make further recommendations after review of testing. He takes sulindac for join pain which helps. Will continue to monitor progress. (4) Lumbar radiculopathy: Plan: As above. The patient feels his back pain has been getting worse. He has had more falls recently and increasing leg weakness. (5) Bilateral carpal tunnel syndrome: Status: Acute Plan: EMG did show severe carpal tunnel of bilateral hands, however, there was a question of whether it is more related to his cord compression. He does continue to have numbness/tingling of his hands post surgery and is now willing to do a repeat EMG for further assessment. Will make further recommendations atthat time. (6) Obesity (BMI 30-39.9): Plan: Discussed diet and exercise. He is down 8 pounds since he was last seen. Will continue to monitor progress. (7) Weakness of left foot: Status: Acute Plan: As above. Patient continues to wear his foot brace to help with stability. (8) Immunization due: Plan: The patient was given his flu and prevnar in the office today, which he tolerated well. (9) Screening for depression: Plan: The patient scored 2 on his PHQ and 0 on his MACY today. The patient is here for a follow up. Plan as above. Medications reviewed with the patient. Will await test results to determine an appropriate follow up. The patient was instructed to call with any concerns or questions before then and they were in agreement. I spent a total of 44 minutes on the date of the service which included preparing to see the patient, [id number] patient care, completing clinical documentation, obtaining and/or reviewing separately obtained history. This excludes separately reportable services. Orders: Orders Spine Lumbar (Routine) Today M54.16 - Radiculopathy, lumbar region, R29.898 - Other symptoms and signs involving the musculoskeletal system Spine Cervical (Routine) Today M54.12 - Radiculopathy, cervical region NCS and/or EMG - Bilateral Upper Today G56.03 - Carpal tunnel syndrome, bilateral upper limbs CBC W/Diff, Automated Today I10 - Essential (primary) hypertension Comprehensive Metabolic Profil Today I10 - Essential (primary) hypertension Lipid Profile Today I10 - Essential (primary) hypertension Influenza Immunization Today Z23 - Encounter for immunization Pneumonia Immunization Today Z23 - Encounter for immunization Referrals Physical Therapy Referral M54.12 - Radiculopathy, cervical region, M54.16 - Radiculopathy, lumbar region Medications: Changed From nifedipine ER 60 mg PO DAILY 90 tabs 0RF To nifedipine ER 30 mg PO DAILY 90 tabs 0RF From losartan 50 mg PO QDAY 30 tabs 1RF To losartan 100 mg PO QDAY 90 tabs 0RF Clinical Quality Measures Falls Risk Screening/Assistive Devices Have you fallen in the past year?: Yes 06/07/25 1317 <Electronically signed by Hyacinth garcia MD> Date _ Hyacinth Bran MD Cosigner Signature: Date (if applicable) CC: ~ [place] [employer] Work Phone: Chief Complaint and Reason for Visit Chief 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 CARE - NPP S ENT AAA SCREENING Reason for Visit Essential hypertensi on Tinea corporis Vitamin D deficiency Weakness of left foot Chronic low back pain Screening for cardiovascular condition Establishing care with new doctor, encounter for Screening for AAA (abdominal aortic aneurysm) Chief Complaint 6 M FU EORDER FOR XRAY Reason for Visit Essential hypertensi on Weakness of left foot Chronic low back pain Immunization due Bilateral hand pain Numbness of fingers Impacted cerumen of right ear Chief Complaint 6 M FU EORDER FOR XRAY ANESTHESIA OF SKIN ANESTHESIA OF SKIN Reason for Visit Essential hypertensi on Weakness of left foot Chronic low back pain Immunization due Bilateral hand pain Numbness of fingers Impacted cerumen of right ear Chief Complaint 6 M FU EORDER FOR XRAY ANESTHESIA OF SKIN ANESTHESIA OF SKIN BI LAT HANDS Radiculopathy, site unspecified CERVICAL SPINE RM 1 Reason for Visit Essential hypertensi on Weakness of left foot Chronic low back pain Immunization due Bilateral hand pain Numbness of fingers Impacted cerumen of right ear Bilateral carpal tunnel syndrome Cervical radiculopathy Cubital tunnel syndrome, bilateral Bilateral carpal tunnel syndrome Herniated nucleus pulposus, C4-5 left Myelomalacia of cervical cord Chief Complaint 6 M FU EORDER FOR XRAY ANESTHESIA OF SKIN ANESTHESIA OF SKIN BI LAT HANDS Radiculopathy, site unspecified CERVICAL SPINE RM 1 RADICULOPATHY Reason for Visit Essential hypertensi on Weakness of left foot Chronic low back pain Immunization due Bilateral hand pain Numbness of fingers Impacted cerumen of right ear Bilateral carpal tunnel syndrome Cervical radiculopathy Cubital tunnel syndrome, bilateral Bilateral carpal tunnel syndrome Herniated nucleus pulposus, C4-5 left Myelomalacia of cervical cord Chief Complaint Admit Date 6 M FU June 07, 2025 1 0:17am NECK PAIN. RX HERE June 21, 2025 1 :00pm Reason for Visit Admit Date Bilateral carpal tunnel syndrome June 07, 2025 10:17am Cervical radiculopathy June 07 10:17am Essential hypertension June 07 10:17am GERD (gastroesophageal reflux disease) O ctober 2024 10:17am Weakness of left foot June 07, 2025 10:17am Screening for depression June 07, 2 025 10:17am Lumbar radiculopathy June 07, 2025 10:17am Immunization due June 07, 2025 1 0:17am Obesity (BMI 30-39.9) June 07, 2025 10:17am Family History No Family History Records Found Relationship Condition Age at Onset Recorded Date/T amara mother Arthritis Unknown Hypertension Unknown High blood cholesterol Unknown Osteoporosis Unknown Cerebrovascular accident (CVA) Unknown father Arthritis Unknown Mesothelioma Unknown grandfather Malignant neoplasm of colon Unknown Summary Purpose Advance Directives No Advanced Directives Records FoundNo Advanced Directives Records Found Additional Source Comments Goals (unrecognized section and content) Goals may be documented in a n alternate sectionGoals may be documented in an alternate sectionGoals may be documented in an alternate sectionGoals may be documented in an alternate sectionGoals may be documented in an alternate sectionGoals may be documented in an alternate section No data available for this section No data available for this sectionGoals may be documented in an alternate section Care Teams (unrecognized sec tion and content) Team Status: Active Member Role Status Dates Dr. Hyacinth Bran MD Primary Care Provider Active Team Status: Inactive Member Role Status Dates Dr. Hyacinth Bran MD Primary Care Pro vider, Attending Provider, Referring Provider Active Team Status: Active Member Role Status Dates Dr. Hyacinth Bran MD Primary Care Pro vider, Attending Provider, Referring Provider Active Team Status: Active Member Role Status Dates Dr. José Manuel Garcia MD Referring Provider, Other Pr ovider Active Dr. Hyacinth Bran MD Primary Care Provider Active Dr. Valentine Caceres MD Attending Provider Active Team Status: Inactive Member Role Status Dates Dr. José Manuel Garcia MD Attending Provider, Referrin g Provider Active Dr. Hyacinth Bran MD Primary Care Provider Active Team Status: Inactive Member Role Status Dates Dr. Hyacinth Bran MD Primary Care Provider, Referri ng Provider Active Alon Rivers MD Attending Provider Active Team Status: Inactive Member Role Status Dates Dr. Hyacinth Bran MD Primary Care Provider, Referri ng Provider Active Dr. Blu Sebastian DO Attending Provider Active Team Status: Inactive Member Role Status Dates Dr. Hyacinth Bran MD Primary Care Provider Active Dr. Ramez Delaney MD Attending Provider Active Team Status: Inactive Member Role Status Dates Dr. Hyacinth Bran MD Primary Care Provider Active Dr. Blu Sebastian DO Attending Provider Active Team Status: Active Member Role/Relationship Status Dates Dr. Hyacinth Bran MD Primary care physician Active Team Status: Inactive Member Role/Relationship Status Dates Dr. Hyacinth Bran MD Primary care physician Active Start: June 07, 2025 End: June 07, 2025 Dr. Hyacinth Bran MD Attending physician Active Start: June 07, 2025 End: June 07, 2025 Dr. Hyacinth Bran MD Referring Provider Active Start: June 07, 2025 End: June 07, 2025 Team Status: Active Member Role/Relationship Status Dates Dr. Hyacinth Bran MD Primary care physician Active Start: June 21, 2025 Dr. Hyacinth Bran MD Attending physician Active Start: June 21, 2025 (unrecognized sect ion and content) No Status Records FoundNo Status Records Found INFORMATION SOURCE (unrecogn ized section and content) DATE CREATED AUTHOR 03/30/2024 [facility] DATE CREATED AUTHOR AUTHOR'S ORGANIZ ATION 06/27/2025 [facility] FOR RECORDS PERTAINING TO PATIENTS WHO ARE OR HAVE BEEN ENROLLED IN A CHEMICAL DEPENDENCY/SUBSTANCEABUSE PROGRAM, SOME INFORMATION MAY BE OMITTED. This clinical summary was aggregated from multiple sources. Caution should be exercised in using it in the provision of clinical care. This summary normalizes information from multiple sources, and as a consequence, information in this document may materially change the coding, format and clinical context of patient data. In addition, data may be omitted in some cases. CLINICAL DECISIONS SHOULD BE BASED ON THE PRIMARY CLINICAL RECORDS. [facility]. provides no warranty or guarantee of the accuracy or completeness of information in this document.
== END | disposition home or self-care (01) ==
PROVIDERS: PCP Internal Medicine; Referring Provider Internal Medicine; Visit Provider Internal Medicine
DX: G56.03 Carpal tunnel syndrome, bilateral upper limbs (principal)
CPT/HCPCS: 95886; 95912